=== PATIENT | male | born 1945 | race Caucasian/White ===

== ENCOUNTER → 2020-02-08 16:18 | Outpatient (BNVA) | payer MEDICARE, MEDICAID, SELFPAY | PROVIDERS: PCP Nurse Practitioner Family; Visit Provider Nurse Practitioner Family | DX: I10 Essential (primary) hypertension (principal); E11.65 Type 2 diabetes mellitus with hyperglycemia; J44.1 Chronic obstructive pulmonary disease with (acute) exacerbation | CPT/HCPCS: 80053; 80061; 83036; 85025 ==

== ENCOUNTER → 2020-02-23 13:35 | Outpatient (BNVA) | payer MEDICARE, MEDICAID, SELFPAY | PROVIDERS: PCP Nurse Practitioner Family; Visit Provider Nurse Practitioner Family | DX: D72.829 Elevated white blood cell count, unspecified (principal) | CPT/HCPCS: 85025 ==

== ENCOUNTER → 2020-10-03 17:08 | Outpatient (BNVA) | payer MEDICARE, MEDICAID, SELFPAY | PROVIDERS: PCP Nurse Practitioner Family; Visit Provider Nurse Practitioner Family | DX: I10 Essential (primary) hypertension (principal); E11.65 Type 2 diabetes mellitus with hyperglycemia; Z12.5 Encounter for screening for malignant neoplasm of prostate | CPT/HCPCS: 80053; 80061; 83036; 85025; G0103 ==

== ENCOUNTER → 2020-10-18 10:02 | Outpatient (BNVA) | payer MEDICARE, MEDICAID, SELFPAY | PROVIDERS: PCP Nurse Practitioner Family; Visit Provider Nurse Practitioner Family | DX: I10 Essential (primary) hypertension (principal); E11.65 Type 2 diabetes mellitus with hyperglycemia; J44.9 Chronic obstructive pulmonary disease, unspecified; Z68.29 Body mass index [BMI] 29.0-29.9, adult; F17.211 Nicotine dependence, cigarettes, in remission; Z71.89 Other specified counseling | CPT/HCPCS: 80048 ==

== ENCOUNTER → 2021-04-13 10:07 | Outpatient (BNVA) | payer MEDICARE, MEDICAID, SELFPAY | PROVIDERS: PCP Nurse Practitioner Family; Visit Provider Nurse Practitioner Family | DX: J44.9 Chronic obstructive pulmonary disease, unspecified (principal); I10 Essential (primary) hypertension; E11.65 Type 2 diabetes mellitus with hyperglycemia | CPT/HCPCS: 80053; 80061; 82043; 83036; 84443; 85025 ==

== ENCOUNTER → 2021-12-10 15:45 | Outpatient (BNVA) | payer MEDICARE, MEDICAID, SELFPAY | PROVIDERS: PCP Nurse Practitioner Family; Visit Provider Internal Medicine Cardiovascular Disease | DX: I10 Essential (primary) hypertension (principal); R06.00 Dyspnea, unspecified | CPT/HCPCS: 80048; 83735; 83880 ==

== ENCOUNTER → 2022-01-09 14:38 | Outpatient (BNVA) | payer MEDICARE, MEDICAID, SELFPAY | PROVIDERS: PCP Nurse Practitioner Family; Visit Provider Nurse Practitioner Family | DX: J44.9 Chronic obstructive pulmonary disease, unspecified (principal); E11.65 Type 2 diabetes mellitus with hyperglycemia; I10 Essential (primary) hypertension | CPT/HCPCS: 80053; 80061; 83036; 85025 ==

== ENCOUNTER → 2022-01-17 10:49 | Outpatient (BNVA) | payer MEDICARE, MEDICAID, SELFPAY | PROVIDERS: PCP Nurse Practitioner Family; Visit Provider Nurse Practitioner Family | DX: D64.9 Anemia, unspecified (principal) | CPT/HCPCS: 82607; 82728; 82746; 83550; 85025 ==

== ENCOUNTER → 2022-01-21 10:29 | Outpatient (BNVA) | payer MEDICARE, MEDICAID, SELFPAY | PROVIDERS: PCP Nurse Practitioner Family; Visit Provider Nurse Practitioner Family | DX: D64.9 Anemia, unspecified (principal) | CPT/HCPCS: 82272; 85025 ==

== ENCOUNTER → 2022-01-28 09:40 | Outpatient (BNVA) | payer MEDICARE, MEDICAID, SELFPAY | PROVIDERS: PCP Nurse Practitioner Family; Visit Provider Surgery | DX: Z20.822 Contact with and (suspected) exposure to COVID-19 (principal) | CPT/HCPCS: 87635 ==

== ENCOUNTER 2022-01-30 09:08 | Day surgery (SDC) | payer MEDICARE, MEDICAID, SELFPAY ==
[2022-01-28 12:47] VITALS: BMI 30.6
--- NOTE | 2022-01-30 09:32 | ANES.PREANE2 ---
Pre-Anesthetic Assessment Height/Weight: Height 1.85 m Weight 105.233 kg Preop Diagnosis: upper gi symptoms Operation Date: 01/30/22 10:30 Proposed Procedures p EGD 30152/col 74763/iron deficiency anemia D50.9(Not Applicable) - Saeed Edwards MD s [id number]/col 60310/iron deficiency anemia D50.9(Not Applicable) - Saeed Edwards MD Familial anesthetic complications: None Was Beta Alok taken within 24 hours: Yes Was Clonidine taken within 24 hours: N/A Social No alcohol and No tobacco (h/o smoking) Exam alert, oriented x 3 and regular rate & rhythm Airway Submandibular: within normal limits Cervical ROM: within normal limits Mallampati: Class II Dentition: false Pulmonary Chronic Obstructive Pulmonary Disease CV/HEM Anemia and Hypertension Metabolic Diabetes Mellitus Anesthetic Plan ASA status: 3 Anesthesia: MAC Medications/Allergies Home Medications Medication Instructions Recorded Confirmed Last Taken Type aspirin 81 mg tablet,delayed 81 mg PO DAILY 01/25/20 01/28/22 Unknown History release (Adult Low Dose Aspirin) amlodipine 10 mg tablet 10 mg .ROUTE DAILY #90 tab 05/28/21 01/28/22 Unknown Rx carvedilol 12.5 mg tablet See Rx Instructions .ROUTE 05/28/21 01/28/22 Unknown Rx .COMPLEX #135 tab losartan 100 mg tablet 100 mg PO DAILY #90 tab 09/10/21 01/28/22 Unknown Rx hydrochlorothiazide 12.5 mg tablet 12.5 mg PO .As directed #180 tab 12/12/21 01/28/22 Unknown Rx blood sugar diagnostic (OneTouch #100 ea 01/09/22 01/21/22 Unknown Rx Verio test strips) fluticasone propionate 50 2 spray INTRANASAL DAILY #16 g 01/09/22 01/28/22 Unknown Rx mcg/actuation nasal spray,suspension (Flonase Allergy Relief) lancets 33 gauge (OneTouch Delica #100 each 01/09/22 01/21/22 Unknown Rx Lancets) metformin 500 mg tablet See Rx Instructions .ROUTE 01/09/22 01/28/22 Unknown Rx .COMPLEX 90 Days #180 tab umeclidinium 62.5 mcg/actuation 1 inh INHALATION DAILY #30 ea 01/09/22 01/28/22 Unknown Rx blister powder for inhalation (Incruse Ellipta) dapagliflozin 10 mg tablet 10 mg PO QAM #90 tab 01/11/22 01/28/22 Unknown Rx (Farxiga) ferrous sulfate 325 mg (65 mg 325 mg PO TID #90 tab 01/17/22 01/28/22 Unknown Rx iron) tablet (Feosol) albuterol sulfate 90 mcg/actuation 2 puff INHALATION Q6H PRN 01/28/22 01/28/22 Unknown History aerosol inhaler Allergies Allergy/AdvReac Type Severity Reaction Status Date / Time Penicillins Allergy Unknown Verified 01/28/22 12:40 Sulfa (Sulfonamide Allergy Unknown Verified 01/28/22 12:40 Antibiotics) [facility] Anesthesia Medical History COPD (chronic obstructive pulmonary disease) Diabetes Hypertension Surgical History History of cholecystectomy Status post right inguinal hernia repair Family History Other CAD (coronary artery disease) Denies family history of Anesthesia complication Bleeding disorder Social History Smoking and tobacco status: former smoker Quit status (tobacco): has quit using tobacco Year quit tobacco: 2-3 years ago Second hand smoke exposure: No Alcohol intake: never Lives independently: Yes Household members: none Housing: House Marital status: Current occupational status: retired History of recent travel: No Current gender identity: Male Data Anesthesia Cardiac Studies: No Data to Display
[2022-01-30 09:48] VITALS: BP 149/71; PULSE 58; RESP 18; TEMP 36.3; O2SAT 98
[2022-01-30] MEDS: sodium chloride 0.9% 1,000 ML 30 ML IV (09:56)
--- NOTE | 2022-01-30 10:40 | W.PM.OPSFHP ---
Same Day Surgery H&P Indication for Procedure/HPI DATE OF PROCEDURE: January 30, 2022 CHIEF COMPLAINT/INDICATIONFOR SURGICAL PROCEDURE: anemia for panendoscopy PREOP DIAGNOSIS: upper gi symptoms PLANNED PROCEDURE: Operation Date: 01/30/22 10:30 Proposed Procedures p EGD 45419/col 64706/iron deficiency anemia D50.9(Not Applicable) - Saeed Edwards MD s [id number]/col 00538/iron deficiency anemia D50.9(Not Applicable) - Saeed Edwards MD Medications/Allergies* Home Medications Medication Instructions Recorded Confirmed Type aspirin 81 mg tablet,delayed 81 mg PO DAILY 01/25/20 01/30/22 History release (Adult Low Dose Aspirin) albuterol sulfate 90 mcg/actuation 2 puff INHALATION Q6H PRN 01/28/22 01/30/22 History aerosol inhaler Allergies/Adverse Reactions Allergy/AdvReac Type Severity Reaction Status Date / Time Penicillins Allergy Unknown Verified 01/28/22 12:40 Sulfa (Sulfonamide Allergy Unknown Verified 01/28/22 12:40 Antibiotics) Current Medications: Generic Name Dose Route Start Last Admin Trade Name Freq PRN Reason Stop Dose Admin Sodium Chloride 1,000 mls @ 30 mls/hr 01/30/22 09:30 01/30/22 09:56 Sodium Chloride 0.9% IV 01/31/22 09:29 30 mls/hr .Q24H MEGHA Administration Pertinent History/Comorbid Conditions* Medical History (Updated 10/19/20 @ 08:41 by SHAINA Vela) COPD (chronic obstructive pulmonary disease) Diabetes Hypertension Surgical History (Updated 01/14/20 @ 14:35 by Saeed Edwards MD) History of cholecystectomy Status post right inguinal hernia repair Family History (Updated 01/14/20 @ 08:35 by Missy Guerin, NORAH) CAD (coronary artery disease) Denies family history of Anesthesia complication Bleeding disorder Social History Smoking and tobacco status: former smoker Quit status (tobacco): has quit using tobacco Year quit tobacco: 2-3 years ago Second hand smoke exposure: No Alcohol intake: never Lives independently: Yes Household members: none Housing: House Marital status: Current occupational status: retired History of recent travel: No Current gender identity: Male Pertinent Exam Findings alert, oriented x 3 and regular rate & rhythm Recommendations Surgery/Procedure today Coding Level of Care Code 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
[2022-01-30 11:07] VITALS: BP 112/56; PULSE 51; RESP 16; TEMP 36.4; O2SAT 94
--- NOTE | 2022-01-30 11:10 | ANE.PACU2 ---
Inpatient post-anesthesia follow up: Airway intact: Yes Vital signs: Temperature 97.5 F Pulse Rate 51 Respiratory Rate 16 Blood Pressure 112/56 Pulse Oximetry 94 Oxygen Delivery Me thod Room Air Oxygen Flow Rate Fraction of Inspir ed Oxygen Hydration adequate: Yes Nausea and vomiting: No Pain level: 1 Mental status: Baseline
[2022-01-30 11:19] VITALS: BP 115/55; PULSE 49; RESP 18; O2SAT 96
[2022-02-07 13:08] LABS: Miscellaneous Test See Scanned Lab Rpt
== END 2022-01-30 11:37 | disposition home or self-care (01) ==
PROVIDERS: PCP Nurse Practitioner Family; Visit Provider Surgery
PROC: 0DJ08ZZ Inspection of Upper Intestinal Tract, Via Natural or Artificial Opening Endoscopic (ICD-10-PCS; CPT 43235; principal; 2022-01-30 10:30)
PROC: 0DJD8ZZ Inspection of Lower Intestinal Tract, Via Natural or Artificial Opening Endoscopic (ICD-10-PCS; CPT 45378; 2022-01-30 10:30)
DX: D50.9 Iron deficiency anemia, unspecified (principal); D12.2 Benign neoplasm of ascending colon; D12.4 Benign neoplasm of descending colon; D12.3 Benign neoplasm of transverse colon; K57.30 Diverticulosis of large intestine without perforation or abscess without bleeding; K44.9 Diaphragmatic hernia without obstruction or gangrene; K25.9 Gastric ulcer, unspecified as acute or chronic, without hemorrhage or perforation; J44.9 Chronic obstructive pulmonary disease, unspecified; I10 Essential (primary) hypertension; E11.9 Type 2 diabetes mellitus without complications; Z79.82 Long term (current) use of aspirin; Z79.84 Long term (current) use of oral hypoglycemic drugs; Z87.891 Personal history of nicotine dependence
CPT/HCPCS: 43239; 45380; 45381; 88305; 88341; 88342; J2704; J7030

== ENCOUNTER 2022-02-01 07:24 | Outpatient (CLI) | payer MEDICARE, MEDICAID, SELFPAY ==
--- NOTE | 2022-02-01 09:00 | CT_ITS ---
WS: [id number] CT ABDOMEN AND PELVIS WITH CONTRAST HISTORY: K63.89 - Other specified diseases of intestine, abnormal hemoglobin. TECHNIQUE: Imaging performed of the abdomen and pelvis with IV contrast. Single phase imaging of the abdomen. Coronal and sagittal reformats are submitted. All CT scans at [facility] use at [address] one of these dose optimization techniques: automated exposure control; mA and/or kV adjustment per patient size (includes targeted exams where dose is matched to clinical indication); or iterative re construction. IV CONTRAST: Visipaque 320; 95 mL IV. Oral contrast: Yes. DLP: 1241.02 mGy.cm COMPARISON: None available. Lower thorax: Lung bases are clear. Heart is normal size. Small hiatal hernia. Liver/biliary system: Normal size liver. Mild hepatic steatosis along the falciform ligament. 4mm low -attenuation nodule in the LEFT lobe of the liver is too small to characterize but has characteristic s most likely due to a cyst. There are a few granulomata. Normal portal vein. Gallbladder: Status post cholecystectomy. Pancreas: Normal size pancreas and pancreatic duct. No adjacent inflammation. Spleen: Normal size spleen with granulomata. Adrenal glands: Mild thickening of the RIGHT adrenal gland. No mass. Normal LEFT adrenal. Right kidney: Normal. Left kidney: Focal cortical scarring at several locations in the LEFT kidney. There are additional hy poechoic scattered nodules within the cortex. Largest measures 10 mm. Aorta: Mild atherosclerosis with no aneurysm. Mesenteric arteries are patent. Lymphadenopathy: Several small round mildly vascular lymph nodes are noted in the RIGHT lower quadran t measuring 7 mm. 7 mm aortocaval lymph node. Free fluid: None. GI tract: Nondistended stomach. Normal small bowel with no obstruction. Mild diffuse fecal retention throughout the colon. There is asymmetric wall thickening measuring 1.6 cm involving the ascending co karl. Circumferential narrowing of the colon extends over length of 3.5 cm highly suspicious for carci noma. There are adjacent small but vascular lymph nodes and mild pericolonic stranding in the soft ti ssues. No obstruction at this time. 7 mm low-attenuation nodule consistent with fat in the submucosa of the RIGHT rectum. The appendix is normal. Abdominal wall: Unremarkable abdominal wall. No hernia. Pelvis: No free fluid. Very small subcentimeter inguinal chain lymph nodes. Inguinal canals are paten t bilaterally containing fat only. Prostate gland is mildly enlarged encroaching into the bladder. Th ere is mild diffuse bladder wall thickening. Bones: Mild retrolisthesis of L3 and L4. No osteoblastic or osteolytic bone disease. CT/CT abdomen pelvis w con* [id number] IMPRESSION: 1. Asymmetric circumferential mass in the ascending colon extends over a lengt h of 3.5 cm suspicious for neoplasm. 2. There are a few round, mildly vascular lymph nodes in the RIGHT lower quadr ant adjacent to the ascending colon mass. 3. Indeterminate 4 millimeter low-attenuation lesion in the LEFT lobe of the l iver. Early metastatic site versus cyst. 4. Prior cholecystectomy. 5. Atherosclerosis aorta. 6. Prostate gland enlargement.
[2022-02-01] MEDS: iodixanol 320 mg/mL 100mL Btl IV (09:11)
[2022-02-01] MEDS: iohexol 300 mg/mL 50 mL Btl PO (09:12)
== END 2022-02-01 07:25 | disposition home or self-care (01) ==
PROVIDERS: PCP Nurse Practitioner Family; Visit Provider Surgery
DX: K63.89 Other specified diseases of intestine (principal); N40.0 Benign prostatic hyperplasia without lower urinary tract symptoms; I70.0 Atherosclerosis of aorta; Z90.49 Acquired absence of other specified parts of digestive tract; K76.9 Liver disease, unspecified; R19.09 Other intra-abdominal and pelvic swelling, mass and lump
CPT/HCPCS: 74177; 87635

== ENCOUNTER 2022-02-04 05:24 | Outpatient (CLI) | payer MEDICARE, MEDICAID, SELFPAY ==
[2022-02-04 06:18] VITALS: BMI 30.9
--- NOTE | 2022-02-04 06:24 | ECG_ITS ---
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 Interpretive Statements NAME OF STUDY: LEXISCAN SESTAMIBI STRESS TEST INDICATION: Shortness of Breath PROCEDURE: At the baseline, the blood pressure was 152/82 mmHg, oxygen saturation 98% with a heart rate of 54 bpm. The electrocardiogram showed normal sinus rhythm, left axis deviation. Possible old anterior infarct. The Lexiscan was infused over a period of 20 seconds. A total of 0.4 milligrams of Lexiscan was infused. The stress phase was continued for a total of 5 minutes. Heart rate at the end of the stress phase was 62 bpm, oxygen saturation 98% with a blood pressure of 133/65 mmHg. The EKG at the peak infusion revealed sinus rhythm with no significant ST-T wave changes. Isolated PACs and PVCs were noted during Lexiscan infusion. The study was terminated due to exertional fatigue. Sestamibi was injected 20 seconds after the Lexiscan infusion. Blood pressure at the end of the recovery phase was 139/63 mmHg, oxygen saturation 97% with a heart rate of 60 beats per minute. CONCLUSION: 1. No significant EKG changes with the LexiScan infusion. 2. No LexiScan induced chest pain or cardiac arrhythmia. 3. Normal blood pressure and heart rate response. 4. Sestamibi/sestamibi perfusion scan pending; see separate report. Electronically Signed On 02-04-2022 9:42:28 AUTOMATION DRIVER by Lenora Moreira M.D. [id number]
--- NOTE | 2022-02-04 06:25 | NMCV_ITS ---
NM jones perf SPECT r/s* [id number] JeanWilfredo Age: 76 Gender: M : 1945 Exam Date: 02/04/2022 06:25 Ordering Phys: Lenora Moreira MD ([email or web address]) Technologist: DEWEY Westfall Exam Location: [facility] Indications: PREOP CLEARANCE, EXERTIONAL DYSPNEA STRESS TEST Please see separate stress test report in [employer] for full findings IMAGE PROTOCOL Rest/Stress 1 Lexiscan Day Radiopharmaceutical Dose (mCi) Administration Site Administered by Rest: Tc-99m 10.8 IV DEWEY Brennan Sestamibi Stress:Tc-99m 32.8 IV DEWEY Brennan Sestamibi Rest: 04-Feb-2022 60 Discovery 630 Stress: 04-Feb-2022 30 Discovery 630 0.4mg Lexiscan. Images obtained in supine and prone position. SPECT RESULTS Technical Quality: Excellent Raw Data Analysis: Normal Image Corrections: No attenuation or motion correction applied Summed Stress Score: 7 Summed Rest Score: 9 Summed Difference Score: 0 PERFUSION FINDINGS Small size perfusion abnormality of mild severity of lateral wall on rest images with improved tracer uptake on stress images. This is suggestive of attenuation artifact. FUNCTIONAL RESULTS (calculated via Gated SPECT) Stress Image LV EF (%): 57 Stress EDV (mL):126 TID: 1.09 Stress ESV (mL):54 FUNCTIONAL FINDINGS: The left ventricle is normal in size. Transient Ischemia Dilatation of 1.1. There is normal left ventricular systolic function. The left ventricular ejection fraction is normal with a value of 57%. There is normal left ventricular wall thickening with no regional wall motion abnormality. Normal end-diastolic end-systolic volumes. IMPRESSIONS 1. Myocardial perfusion imaging is normal. Attenuation artifact noted in lateral wall. 2. Overall left ventricular systolic function is normal without regional wall motion abnormalities, LVEF=57%. 3. No significant EKG changes with Lexiscan infusion. Please refer to separate report for details. 4. Scan indicates low risk for cardiac events. Lenora Moreira MD (Electronically Signed) Final Date: 04 February 2022 10:59 S
[2022-02-04] MEDS: regadenoson 0.4 Mg/5 ml Syringe IVP (08:06)
[2022-02-04 08:18] VITALS: BP 139/63; PULSE 62
== END 2022-02-04 05:25 | disposition home or self-care (01) ==
LOC: RAD 05:25 → CDL 05:25
PROVIDERS: PCP Nurse Practitioner Family; Visit Provider Internal Medicine Cardiovascular Disease
DX: R06.09 Other forms of dyspnea (principal); R06.02 Shortness of breath
CPT/HCPCS: 78452; 93017; A9500; J2785

== ENCOUNTER 2022-02-05 15:48 | Inpatient (IN) | payer MEDICARE, MEDICAID, SELFPAY ==
[2022-02-01 15:42] VITALS: BMI 30.9
[2022-02-05] VITALS (13 sets, daily range): BP systolic 111–145; BP diastolic 53–80; PULSE 52–63; RESP 16–20; TEMP 36.2–37.1; O2SAT 91–100; BMI 30.9
[2022-02-05] MEDS: sodium chloride 0.9% 1,000 ML 30 ML IV (10:49)
[2022-02-05 11:03] LABS: Glucose Point of Care 150 mg/dL (70-110)
--- NOTE | 2022-02-05 11:35 | P.ANESASSM_ITS ---
Pre-Anesthetic Assessment Height/Weight: Height 1.85 m Weight 106.594 kg Temp Pulse Resp BP Pulse Ox 98.8 F 59 L 16 145/80 97 02/05/22 10:22 02/05/22 10:22 02/05/22 10:22 02/05/22 10:22 02/05/22 10:22 Preop Diagnosis: Ascending colon cancer Operation Date: 02/05/22 11:50 Proposed Procedures p Laparoscopic Right Hemicolectomy 49784/c18.2(Not Applicable) - Saeed Edwards MD Familial anesthetic complications: None Was Beta Alok taken within 24 hours: Yes Was Clonidine taken within 24 hours: N/A Last intake: Intake Last Liquid Date 02/04/22 Last Liquid Time 20:00 Last Solid Date 02/02/22 Last Solid Time 18:00 Social No alcohol and No tobacco (h/o smoking) Exam alert, oriented x 3 and regular rate & rhythm Airway Submandibular: within normal limits Cervical ROM: within normal limits Mallampati: Class II Dentition: false Pulmonary Chronic Obstructive Pulmonary Disease CV/HEM Anemia and Hypertension CONCLUSION: 1. No significant EKG changes with the LexiScan infusion. 2. No LexiScan induced chest pain or cardiac arrhythmia. 3. Normal blood pressure and heart rate response. 4. Sestamibi/sestamibi perfusion scan pending; see separate report. Metabolic Diabetes Mellitus Medications/Allergies Home Medications Medication Instructions Recorded Confirmed Last Taken Type aspirin 81 mg tablet,delayed 81 mg PO DAILY 01/25/20 02/05/22 01/28/22 History release (Adult Low Dose Aspirin) amlodipine 10 mg tablet 10 mg .ROUTE DAILY #90 tab 05/28/21 02/05/22 02/04/22 Rx carvedilol 12.5 mg tablet See Rx Instructions .ROUTE 05/28/21 02/05/22 02/05/22 Rx .COMPLEX #135 tab 0 losartan 100 mg tablet 100 mg PO DAILY #90 tab 09/10/21 02/05/22 02/04/22 Rx hydrochlorothiazide 12.5 mg tablet 12.5 mg PO .As directed #180 tab 12/12/21 02/05/22 02/05/22 Rx 12.5 mg blood sugar diagnostic (OneTouch #100 ea 01/09/22 02/01/22 Unknown Rx Verio test strips) fluticasone propionate 50 2 spray INTRANASAL DAILY #16 g 01/09/22 02/05/22 Unknown Rx mcg/actuation nasal spray,suspension (Flonase Allergy Relief) lancets 33 gauge (OneTouch Delica #100 each 01/09/22 02/01/22 Unknown Rx Lancets) metformin 500 mg tablet See Rx Instructions .ROUTE 01/09/22 02/05/22 01/29/22 07:00 Rx .COMPLEX 90 Days #180 tab umeclidinium 62.5 mcg/actuation 1 inh INHALATION DAILY #30 ea 01/09/22 02/05/22 02/04/22 Rx blister powder for inhalation 1100 (Incruse Ellipta) dapagliflozin 10 mg tablet 10 mg PO QAM #90 tab 01/11/22 02/05/22 1 Week Ago Rx (Farxiga) ~01/29/22 ferrous sulfate 325 mg (65 mg 325 mg PO TID #90 tab 01/17/22 02/05/22 02/05/22 R x iron) tablet (Feosol) 325 mg albuterol sulfate 90 mcg/actuation 2 puff INHALATION Q6H PRN 01/28/22 02/05/22 02/05/22 History aerosol inhaler erythromycin 500 mg tablet 500 mg PO ONCE #3 tab 02/01/22 02/05/22 02/04/22 Rx neomycin 500 mg tablet 1 g PO ONCE 1 Days #6 tab 02/01/22 02/05/22 02/04/22 Rx Allergies Allergy/AdvReac Type Severity Reaction Status Date / Time Penicillins Allergy Unknown Verified 02/05/22 10:32 Sulfa (Sulfonamide Allergy Unknown Verified 02/05/22 10:32 Antibiotics) Current Medications Generic Name Dose Route Start Last Admin Trade Name Freq PRN Reason Stop Dose Admin Sodium Chloride 1,000 mls @ 30 mls/hr 02/05/22 10:15 02/05/22 10:49 Sodium Chloride 0.9% IV 02/06/22 10:14 30 mls/hr .Q24H MEGHA Administration PFSH Anesthesia Medical History Cancer of ascending colon COPD (chronic obstructive pulmonary disease) Diabetes Hypertension Surgical History H/O esophagogastroduodenoscopy (01/30/22) gastritis and esophagitis History of cholecystectomy Status post colonoscopy with polypectomy (01/30/22) ascending colon mass, transverse colon polyps, diverticulosis Status post right inguinal hernia repair Family History Other CAD (coronary artery disease) Denies family history of Anesthesia complication Bleeding disorder Social History Smoking and tobacco status: former smoker Quit status (tobacco): has quit using tobacco Year quit tobacco: 2-3 years ago Second hand smoke exposure: No Alcohol intake: never Lives independently: Yes Household members: none Housing: House Marital status: Current occupational status: retired History of recent travel: No Current gender identity: Male Data Anesthesia Cardiac Studies: Sestamibi Stress Test (Cardiology) 02/04/22
--- NOTE | 2022-02-05 11:54 | W.PM.OPSFHP ---
Same Day Surgery H&P Indication for Procedure/HPI DATE OF PROCEDURE: February 05, 2022 CHIEF COMPLAINT/INDICATIONFOR SURGICAL PROCEDURE: right hemicolectomy PREOP DIAGNOSIS: Ascending colon cancer PLANNED PROCEDURE: Operation Date: 02/05/22 11:50 Proposed Procedures p Laparoscopic Right Hemicolectomy 45892/c18.2(Not Applicable) - Saeed Edwards MD Medications/Allergies* Home Medications Medication Instructions Recorded Confirmed Type aspirin 81 mg tablet,delayed 81 mg PO DAILY 01/25/20 02/05/22 History release (Adult Low Dose Aspirin) albuterol sulfate 90 mcg/actuation 2 puff INHALATION Q6H PRN 01/28/22 02/05/22 History aerosol inhaler Allergies/Adverse Reactions Allergy/AdvReac Type Severity Reaction Status Date / Time Penicillins Allergy Unknown Verified 02/05/22 10:32 Sulfa (Sulfonamide Allergy Unknown Verified 02/05/22 10:32 Antibiotics) Current Medications: Generic Name Dose Route Start Last Admin Trade Name Freq PRN Reason Stop Dose Admin Sodium Chloride 1,000 mls @ 30 mls/hr 02/05/22 10:15 02/05/22 10:49 Sodium Chloride 0.9% IV 02/06/22 10:14 30 mls/hr .Q24H MEGHA Administration Pertinent History/Comorbid Conditions* Medical History (Updated 02/01/22 @ 10:16 by Saeed Edwards MD) Cancer of ascending colon COPD (chronic obstructive pulmonary disease) Diabetes Hypertension Surgical History (Updated 01/30/22 @ 11:07 by Saeed Edwards MD) H/O esophagogastroduodenoscopy (01/30/22) gastritis and esophagitis History of cholecystectomy Status post colonoscopy with polypectomy (01/30/22) ascending colon mass, transverse colon polyps, diverticulosis Status post right inguinal hernia repair Family History (Updated 01/14/20 @ 08:35 by Missy Guerin RN) CAD (coronary artery disease) Denies family history of Anesthesia complication Bleeding disorder Social History Smoking and tobacco status: former smoker Quit status (tobacco): has quit using tobacco Year quit tobacco: 2-3 years ago Second hand smoke exposure: No Alcohol intake: never Lives independently: Yes Household members: none Housing: House Marital status: Current occupational status: retired History of recent travel: No Current gender identity: Male Pertinent Exam Findings alert, oriented x 3 and regular rate & rhythm Recommendations Surgery/Procedure today Coding Level of Care Code 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
[2022-02-05 12:05] LABS: Carcinoembryonic Antigen 5.1 ng/mL (0.0-4.7)
[2022-02-05] MEDS: levofloxacin-dextrose 5 % 500 MG/100 ML PREMIX 100 MG IV (12:12)
[2022-02-05] MEDS: metroNIDAZOLE IV 500 MG/100 ML PREMIX 100 MG IV ×2 (12:21→17:56)
--- NOTE | 2022-02-05 15:06 | PM.OP ---
Operative Report Date of procedure: February 05, 2022 Pre-op diagnosis: Ascending colon adenocarcinoma Post-op diagnosis: Ascending colon adenocarcinoma No evidence of peritoneal carcinomatosis No evidence of liver metastasis Procedure done: 1. Laparoscopic right hemicolectomy with ileocolic stapled anastomosis Specimens removed/disposition: Cecum, ileum, ascending colon, proximal transverse colon Surgeon: Saeed Edwards Anesthesia: General Estimated blood loss (mL): 200 IV fluids (mL): 2,000 Urine output (mL): 50 Condition: stable Disposition: PACU Procedure: The patient was taken to the operating room and placed in supine position under general anesthesia after IV antibiotic had been administered. A Real catheter was placed and the abdomen was prepped and draped in a sterile manner. A 2 cm midline supraumbilical incision was made and using open Sexton technique the peritoneal cavity was entered and an 11 mm port was placed and 15 mm of pneumoperitoneum was created. 10 mm 30? scope was introduced. 5 mm port was placed in the left lower quadrant, left upper quadrant and in the suprapubic area under direct visualization. There was no evidence of peritoneal carcinomatosis or liver lesions. The previously inked area was noted in the ascending colon and therefore decision was made for right hemicolectomy. The patient was placed in Trendelenburg position and steep tilt to the left placing the small bowel in the left side within the peritoneal cavity and the transverse colon was retracted superiorly. The cecum was retracted laterally and the tenting of the ileocolic pedicle was noted. The peritoneum overlying the pedicle was opened and a window created posterior to the pedicle just lateral to the third portion of the duodenum. Dissection was carried superiorly and lateral to the duodenum along the avascular plane. Using LigaSure the ileocolic pedicle was divided. After the ileocolic pedicle was divided there was bleeding from the divided pedicle which was controlled with 10 mm clips and electrocautery. The avascular plane was dissected laterally towards the right paracolic gutter and superiorly towards the hepatic flexure.The transverse mesocolon was divided using LigaSure and this was continued medially. The mid colic vessels were skeletonized and right branch of the mid colic artery divided with LigaSure. The anterior leaflet of the greater omentum was divided near the midpoint of the transverse colon to enter the lesser sac. The greater omentum was divided using LigaSure and the hepatic flexure was taken down. The dissection was carried along the line of Toldt until the ascending colon and down to ileum to completely free it up. The mesentery of the terminal ileum was divided using LigaSure. 20 cc of saline mixed with 20 cc of 0.5% Marcaine mixed with 20 cc of Exparel was injected in the midclavicular line under laparoscopic visualization for a TAP block. At this point the pneumoperitoneum was released and the mobilized colon and small bowel was exteriorized through the supraumbilical incision which had been extended and a wound protector had been placed. Interrupted 4-0 Vicryl suture was placed to approximate the ileum to the transverse colon and enterotomies were created on the transverse colon and small bowel and and 75 mm blue load FAZAL stapler was introduced and fired creating a [id number] stapled anastomosis. There was no bleeding noted from the staple line and enterotomies were grasped with Allis clamps and another load of 75 mm blue load FAZAL stapler x 2 was fired to resect the specimen distal to the enterotomies. 4-0 Vicryl Lembert sutures were placed on the edges and the intersection of the staple line. The bowel was reintroduced into the peritoneal cavity and the staple line was covered with omentum. All ports were removed under direct visualization and there was no bleeding noted from the port sites. The fascia at the midline incision was closed using running #1 loop PDS. The wound was irrigated with saline, and subcutaneous tissue approximated using 3-0 Vicryl suture and skin at all 4 port sites were closed with 4-0 Monocryl and Dermabond. The patient was transferred to the recovery room in stable condition with a Real catheter
[2022-02-05] MEDS: sodium chlor 0.45% +KCl 20 mEq 20 MEQ/1,000 ML BAG 125 MEQ IV (16:43)
[2022-02-05 17:04] LABS: Glucose Point of Care 161 mg/dL (70-110)
--- NOTE | 2022-02-05 17:09 | ANE.PACU2 ---
Inpatient post-anesthesia follow up: Airway intact: Yes Vital signs: Temperature 97.1 F Pulse Rate 52 Respiratory Rate 16 Blood Pressure 117/60 Pulse Oximetry 96 Oxygen Delivery Me thod Nasal Cannula Oxygen Flow Rate 3 Fraction of Inspir ed Oxygen Hydration adequate: Yes Nausea and vomiting: No Pain level: 3 Mental status: Baseline
[2022-02-05 17:49] LABS: Basophils % 0.4 %; Eosinophils % 0.2 %; Hematocrit 38.7 % (42.0-52.0); Hemoglobin 11.3 g/dL (11.7-16.6); Lymphocytes # 0.6 10^3/uL (0.8-4.8); Lymphocytes % 5.9 %; Mean Corpuscular HGB Conc 29.2 g/dL (30.0-36.0); Mean Corpuscular Hemoglobin 25.2 pg (28.0-34.0); Mean Corpuscular Volume 86.4 fl (80-94); Mean Platelet Volume 9.3 fL (7.4-10.4); Monocytes # 0.3 10^3/uL (0.2-0.9); Monocytes % 2.5 %; Neutrophils # 9.54 10^3/uL (1.8-7.7); Neutrophils % 90.6 %; Nucleated Red Blood Cells % 0 %; Platelet Count 295 10^3/cmm (130-400); Red Blood Count 4.48 10^6/uL (4.1-5.3); White Blood Count 10.5 10^3/uL (4.0-10.0)
[2022-02-05] MEDS: carvedilol 6.25 mg Tablet PEG-TUBE (17:50)
[2022-02-05] MEDS: insulin lispro 100 unit/1 mL SUBCUT (17:50)
[2022-02-05] MEDS: sennosides-docusate Tablet 1 TAB PO (17:50)
[2022-02-05] MEDS: HYDROcodone-acetaminophen 5-325 mg Tablet 1 TAB PO (17:50)
[2022-02-05 18:37] LABS: Anion Gap 18.4 (5-19); Blood Urea Nitrogen 21 mg/dL (8-23); Calcium 8.4 mg/dL (8.5-10.5); Carbon Dioxide 18 mmol/L (22-29); Chloride 101 mmol/L (98-107); Glucose 184 mg/dL (65-115); Osmolality Calculated 284 mOsm/kg (285-295); Potassium 4.4 mmol/L (3.5-5.1); Sodium 133 mmol/L (136-145)
--- NOTE | 2022-02-05 19:05 | PC.NURSE ---
patient belongings were not brought with the patient from PACU. Patient states that he had clothing, a jacket, watch, shoes, wallet, and keys.
[2022-02-05 22:05] LABS: Glucose Point of Care 165 mg/dL (70-110)
[2022-02-06] VITALS (10 sets, daily range): BP systolic 102–164; BP diastolic 53–82; PULSE 52–75; RESP 16–19; TEMP 36.4–37.4; O2SAT 90–98
[2022-02-06] MEDS: sodium chlor 0.45% +KCl 20 mEq 20 MEQ/1,000 ML BAG 125 MEQ IV ×3 (01:23→20:21)
[2022-02-06] MEDS: metroNIDAZOLE IV 500 MG/100 ML PREMIX 100 MG IV (02:45)
[2022-02-06 02:55] LABS: Basophils % 0.1 %; Hematocrit 37.8 % (42.0-52.0); Hemoglobin 11.3 g/dL (11.7-16.6); Lymphocytes # 0.5 10^3/uL (0.8-4.8); Lymphocytes % 4.8 %; Mean Corpuscular HGB Conc 29.9 g/dL (30.0-36.0); Mean Corpuscular Hemoglobin 24.7 pg (28.0-34.0); Mean Corpuscular Volume 82.5 fl (80-94); Mean Platelet Volume 9.5 fL (7.4-10.4); Monocytes # 0.4 10^3/uL (0.2-0.9); Monocytes % 3.8 %; Neutrophils % 90.8 %; Nucleated Red Blood Cells % 0 %; Platelet Count 358 10^3/cmm (130-400); Red Blood Count 4.58 10^6/uL (4.1-5.3); Red Cell Distribution Width 22.1 % (12.1-15.1); White Blood Count 10.2 10^3/uL (4.0-10.0)
[2022-02-06 03:17] LABS: Anion Gap 16.7 (5-19); Blood Urea Nitrogen 18 mg/dL (8-23); Calcium 8.2 mg/dL (8.5-10.5); Carbon Dioxide 21 mmol/L (22-29); Chloride 103 mmol/L (98-107); Glucose 155 mg/dL (65-115); Osmolality Calculated 287 mOsm/kg (285-295); Potassium 4.7 mmol/L (3.5-5.1); Sodium 136 mmol/L (136-145)
--- NOTE | 2022-02-06 05:10 | PC.NURSE ---
SHIFT SUMMARY Has not slept much tonight. Has not taken anything for pain. Every time offered he says he is ok and doesn't like to take medications. IV infusing without difficulty at 125ml/hr rate. Received second dose of IV Flagyl tonight. Has been NPO except few ice chips. Has denied nausea. Will start clear liquid diet this morning. 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 Has had good urine output tonight. Monitored with Real emptied every few hours. Has occ cough and says feels like secretions in his throat.Enc se of IS at bedside
[2022-02-06] MEDS: carvedilol 12.5 mg Tablet PEG-TUBE (05:32)
[2022-02-06 06:32] LABS: Glucose Point of Care 131 mg/dL (70-110)
[2022-02-06] MEDS: HYDROcodone-acetaminophen 5-325 mg Tablet 1 TAB PO ×2 (08:08→17:44)
[2022-02-06] MEDS: hydroCHLOROthiazide 25 mg Tablet 12.5 MG PO (09:20)
[2022-02-06] MEDS: losartan 50 mg Tablet 100 MG PO (09:21)
[2022-02-06] MEDS: aspirin 81 mg EC Tablet PO (09:21)
[2022-02-06] MEDS: amlodipine 10 mg Tablet PO (09:21)
[2022-02-06] MEDS: sennosides-docusate Tablet 1 TAB PO ×2 (09:21→16:53)
--- NOTE | 2022-02-06 10:13 | PC.CHAP ---
Pastoral Care Encounter/Spiritual Assessment Type of Contact [] Declined cad designer visit [] Patient/Family/Request visit [] Outpatient visit [] Follow-up visit [] Physician referral [] Code/Alert [x] Routine visit [] Staff referral [] Actively dying [] Patient sleeping [] Family support [] [] Out of room [] Palliative care [] [] Receiving care in room [] Pre-surgical visit [] Trauma [] Long length of stay [] ICU visit [] Other: Relational/Emotional Strength [x] Patient feels connected with others/family/visitors/staff [] Distress [] Loneliness/isolation [] Abandonment Spirituality of Patient [x] Person of Usha [x] Attends Congregational of their Usha [x] Believes in Prayer [] Reads Bible or Sabianism materials [] There are Spiritual issues to be addressed 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 Interventions [x] Prayer [] Active listening [] Non-anxious presence [] Spiritual/emotional support [] Crisis/trauma care [] Spiritual counseling [] Bereavement support [] Provided bereavement packet [] Provided Bible/devotional materials [] Provided toy/stuffed animal, coloring book to patient or family member [] Provided Communion [] Anointing/[place] [] Salvation [] Completed spiritual assessment [] Other: Impact on Illness or Injury [] Angry [] Fearful [] Anxious [] Often cries [] Exhaustion [] Unable to work [] Unable to attend mormon [] Unable to walk/stand [] Unable to read [] Unable to drive [] Unable to eat/drink [] Unable to sleep [] Unable to be with family [] Patient intubated [] Other: Summary Time spent with patient 10 min
[2022-02-06] MEDS: levofloxacin-dextrose 5 % 750 MG/150 ML PREMIX 100 MG IV (10:52)
[2022-02-06 11:45] LABS: Glucose Point of Care 218 mg/dL (70-110)
[2022-02-06 11:45] LABS: Glucose Point of Care 219 mg/dL (70-110)
[2022-02-06] MEDS: insulin lispro 100 unit/1 mL SUBCUT (12:18)
--- NOTE | 2022-02-06 12:37 | PM.PN ---
Subjective Subjective: Patient denies any abdominal pain, nausea, vomiting, flatus or BM, tolerating clears. He had poor urine output during surgery but had 1100 cc of urine output last night Medications: Reviewed: Yes Vitals/I&O/Wt Last Vital Signs Temp 97.8 F 02/06/22 11:53 Pulse 64 02/06/22 11:53 Resp 18 02/06/22 11:53 BP 129/60 02/06/22 11:53 Pulse Ox 93 02/06/22 11:53 02/05/22 02/06/22 02/06/22 22:59 06:59 14:59 Intake Total 2525 / 3875 1150 / 3875 1165 / 1165 Output Total 850 / 1800 950 / 1800 Balance 1675 / 2075 200 / 2075 1165 / 1165 Weight last 48 hrs Weight 235 lb Physical Exam Narrative: Abdomen: Soft, mildly distended, tender, incision clean dry and intact, Real to gravity Urinary Catheter Management: Coude: Cath Placed During This Visit: yes Urinary Catheter Date of Insertion: 02/05/22 Urinary Catheter Time of Insertion: 12:15 Data : 02/06/22 02:28 02/06/22 12:14 A&P Assessment and plan (1) S/P right hemicolectomy: 76-year-old male status post right hemicolectomy for ascending colon adenocarcinoma with postop ileus Acute renal failure with creatinine at 2.1, repeat creatinine is 1.9 most likely prerenal secondary to dehydration Continue IV fluids at 125 cc/h Heparin 5000 every 8 for DVT prophylaxis Pepcid for GI prophylaxis Start clear liquid diet Insulin sliding scale Resume home medications except HCTZ and losartan Leave Real in for 24 more hours for accurate monitoring of urine output Ambulate with physical therapy Incentive spirometry, wean O2 to room air Patient will need greater than 2 nights of inpatient stay to ensure resolution of ileus and rule out postop complications Status: Acute Attestations Medical Necessity Statement*: Status post right hemicolectomy with postop ileus requiring continued inpatient stay Coding Level of Care 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
[2022-02-06 12:50] LABS: Anion Gap 16.5 (5-19); Blood Urea Nitrogen 20 mg/dL (8-23); Calcium 8.8 mg/dL (8.5-10.5); Carbon Dioxide 20 mmol/L (22-29); Chloride 100 mmol/L (98-107); Glucose 233 mg/dL (65-115); Osmolality Calculated 284 mOsm/kg (285-295); Potassium 4.5 mmol/L (3.5-5.1); Sodium 132 mmol/L (136-145)
[2022-02-06] MEDS: heparin 5,000 unit/mL INJ 1 mL 5000 UNIT SUBCUT ×2 (13:24→22:23)
[2022-02-06 17:25] LABS: Glucose Point of Care 131 mg/dL (70-110)
[2022-02-06 20:59] LABS: Glucose Point of Care 174 mg/dL (70-110)
[2022-02-07] VITALS (7 sets, daily range): BP systolic 125–170; BP diastolic 60–82; PULSE 69–89; RESP 13–20; TEMP 36.5–37.2; O2SAT 90–96
[2022-02-07] MEDS: sodium chlor 0.45% +KCl 20 mEq 20 MEQ/1,000 ML BAG 125 MEQ IV ×3 (03:38→20:52)
[2022-02-07] MEDS: ondansetron 2 mg/ML SDV 2 mL 4 MG IVP ×2 (03:38→08:35)
[2022-02-07 05:58] LABS: Basophils % 0.3 %; Eosinophils % 0.2 %; Hematocrit 35.2 % (42.0-52.0); Hemoglobin 11.2 g/dL (11.7-16.6); Lymphocytes # 0.8 10^3/uL (0.8-4.8); Lymphocytes % 6.9 %; Mean Corpuscular HGB Conc 31.8 g/dL (30.0-36.0); Mean Corpuscular Hemoglobin 27.3 pg (28.0-34.0); Mean Corpuscular Volume 85.6 fl (80-94); Mean Platelet Volume 9.4 fL (7.4-10.4); Monocytes # 0.7 10^3/uL (0.2-0.9); Monocytes % 6.5 %; Neutrophils # 9.83 10^3/uL (1.8-7.7); Neutrophils % 85.8 %; Nucleated Red Blood Cells % 0 %; Platelet Count 373 10^3/cmm (130-400); Red Blood Count 4.11 10^6/uL (4.1-5.3); Red Cell Distribution Width 23.7 % (12.1-15.1); White Blood Count 11.5 10^3/uL (4.0-10.0)
[2022-02-07] MEDS: carvedilol 12.5 mg Tablet PEG-TUBE (06:11)
[2022-02-07 06:14] LABS: Anion Gap 17.3 (5-19); Blood Urea Nitrogen 20 mg/dL (8-23); Calcium 8.3 mg/dL (8.5-10.5); Carbon Dioxide 19 mmol/L (22-29); Chloride 103 mmol/L (98-107); Glucose 165 mg/dL (65-115); Osmolality Calculated 286 mOsm/kg (285-295); Potassium 4.3 mmol/L (3.5-5.1); Sodium 135 mmol/L (136-145)
[2022-02-07 06:20] LABS: Glucose Point of Care 156 mg/dL (70-110)
[2022-02-07] MEDS: insulin lispro 100 unit/1 mL SUBCUT ×2 (08:39→18:05)
--- NOTE | 2022-02-07 10:27 | PC.NURSE ---
PT. AMBULATED 1 LAP.
[2022-02-07] MEDS: HYDROcodone-acetaminophen 5-325 mg Tablet 1 TAB PO (10:46)
[2022-02-07] MEDS: sennosides-docusate Tablet 1 TAB PO (10:47)
[2022-02-07] MEDS: aspirin 81 mg EC Tablet PO (10:48)
[2022-02-07] MEDS: amlodipine 10 mg Tablet PO (10:48)
--- NOTE | 2022-02-07 11:43 | US_ITS ---
WS: [id number] RENAL ULTRASOUND HISTORY: renal failure COMPARISON: None available. TECHNIQUE: 2-D and color Doppler imaging of the kidney submitted. Technically limited evaluation of the kidneys due to body habitus. Right kidney: 10.8 cm x 4.5 cm x 6.0 cm. Normal echogenicity with no hydronephrosis or mass. Left kidney: 11.2 cm x 4.2 cm x 5.3 cm. Normal echogenicity with no hydronephrosis or mass. Aorta: Only a short segment of the aorta is visualized. This segment is above the aorta. Urinary Bladder: Minimally distended urinary bladder. There is a Real catheter present. US/US renal BI* [id number] IMPRESSION: 1. No hydronephrosis or mass identified. 2. No cortical thinning.
--- NOTE | 2022-02-07 11:57 | PM.CONSULT ---
Providers/Reason For Consult Consulting Physician/Specialty*: Hospitalist, Triston Bocanegra MD Reason for Consult*: Poor renal function Requesting Physician: Jerry Attending Physician: Triston Bocanegra MD Primary Care Provider: SHAINA Vela History of Present Illness History of Present Illness Wilfredo Pena is a 76 year old male who I am consulted on secondary to creatinine above baseline. He underwent laparoscopy with right hemicolectomy and ileocolic stapled anastomosis on February 05. It was noted his urine output was poor during the procedure. Creatinine following the procedure was 1.9. It was noted that his renal output improved on the floor is monitored through Real catheter. Hydrochlorothiazide, and ARB were stopped but he did receive his doses yesterday. He has been receiving IV fluids and an adequate dose rate. He denies any pre-existing knowledge of renal dysfunction, and does not use anti-inflammatories. Review of Systems General: Reports: 10 or more systems reviewed and unremarkable except in HPI and below Const: Denies: fever(s) or chills Eyes: Denies: change in vision ENMT: Denies: throat pain Card: Denies: chest pain Resp: Denies: dyspnea GI: Reports: abdominal pain : Denies: flank pain, dysuria or urinary dribbling Musc: Denies: neck pain Skin/Breast: Denies: rash Psych: Denies: anxiety or depression Juan Antonio/Lymph: Denies: easy bleeding All/Imm: Denies: urticaria Medications/Allergies Home Medications Medication Instructions Recorded Confirmed Last Taken Type aspirin 81 mg tablet,delayed 81 mg PO DAILY 01/25/20 02/06/22 01/28/22 History release (Adult Low Dose Aspirin) amlodipine 10 mg tablet 10 mg .ROUTE DAILY #90 tab 05/28/21 02/05/22 02/04/22 Rx carvedilol 12.5 mg tablet See Rx Instructions .ROUTE 05/28/21 02/06/22 01/30/22 07:00 Rx .COMPLEX #135 tab losartan 100 mg tablet 100 mg PO DAILY #90 tab 09/10/21 02/06/22 01/28/22 Rx hydrochlorothiazide 12.5 mg tablet 12.5 mg PO .As directed #180 tab 12/12/21 02/06/22 01/29/22 Rx blood sugar diagnostic (OneTouch #100 ea 01/09/22 02/06/22 Unknown Rx Verio test strips) fluticasone propionate 50 2 spray INTRANASAL DAILY #16 g 01/09/22 02/06/22 Unknown Rx mcg/actuation nasal spray,suspension (Flonase Allergy Relief) lancets 33 gauge (Erinuch Delica #100 each 01/09/22 02/06/22 Unknown Rx Lancets) umeclidinium 62.5 mcg/actuation 1 inh INHALATION DAILY #30 ea 01/09/22 02/06/22 01/29/22 Rx blister powder for inhalation (Incruse Ellipta) dapagliflozin 10 mg tablet 10 mg PO QAM #90 tab 01/11/22 02/06/22 01/28/22 Rx (Farxiga) ferrous sulfate 325 mg (65 mg 325 mg PO TID #90 tab 01/17/22 02/06/22 01/29/22 Rx iron) tablet (Feosol) albuterol sulfate 90 mcg/actuation 2 puff INHALATION Q6H PRN 01/28/22 02/06/22 01/29/22 17:00 History aerosol inhaler metformin 500 mg tablet 500 mg PO BID 02/06/22 02/06/22 Unknown History Allergies Allergy/AdvReac Type Severity Reaction Status Date / Time Penicillins Allergy Unknown Verified 02/05/22 10:32 Sulfa (Sulfonamide Allergy Unknown Verified 02/05/22 10:32 Antibiotics) Current Medications Generic Name Dose Route Start Last Admin Trade Name Freq PRN Reason Stop Dose Admin Hydrocodone Bitart/Acetaminophen 1 tab 02/05/22 16:26 02/07/22 10:46 Hydrocodone-Acetaminophen 5-325 Mg Tablet PO 1 tab Q6H PRN Administration MODERATE PAIN Amlodipine Besylate 10 mg 02/06/22 09:00 02/07/22 10:48 Amlodipine 10 Mg Tablet PO 10 mg DAILY MEGHA Administration Aspirin 81 mg 02/06/22 09:00 02/07/22 10:48 Aspirin 81 Mg Ec Tablet PO 81 mg DAILY MEGHA Administration Carvedilol 12.5 mg 02/06/22 06:00 02/07/22 06:11 Carvedilol 12.5 Mg Tablet PEG-TUBE 12.5 mg QAM MEGHA Administration Carvedilol 6.25 mg 02/05/22 18:00 02/06/22 16:53 Carvedilol 6.25 Mg Tablet PEG-TUBE Not Given QPM MEGHA Fluticasone Propionate 2 spray 02/06/22 09:00 02/07/22 10:50 Fluticasone Nasal [place] 16gm Btl INTRANASAL Not Given DAILY [facility] Heparin Sodium (Porcine) 5,000 unit 02/06/22 23:00 02/06/22 22:23 Heparin 5,000 Unit/Ml Inj 1 Ml SUBCUT 5,000 unit Q12H MEGHA Administration Potassium Chloride/Sodium Chloride 20 meq in 1,000 mls @ 125 mls/hr 02/05/22 16:26 02/07/22 03:38 Sodium Chlor 0.45% +Kcl 20 Meq IV 125 mls/hr .Q8H MEGHA Administration Insulin Human Lispro 0 unit 02/05/22 18:00 02/07/22 08:39 Insulin Lispro 100 Unit/1 Ml SUBCUT 4 unit TIDWM MEGHA Administration Protocol Non-Formulary Medication 1 inh 02/06/22 09:00 02/07/22 10:50 Umeclidinium [Incruse Ellipta] INHALATION Not Given DAILY [facility] Ondansetron HCl 4 mg 02/05/22 16:26 02/07/22 08:35 Ondansetron 2 Mg/Ml Sdv 2 Ml IVP 4 mg Q4H PRN Administration NAUSEA AND VOMITING Senna/Docusate Sodium 1 tab 02/05/22 18:00 02/07/22 10:47 Sennosides-Docusate Tablet PO 1 tab BID MEGHA Administration PFSH Acute PFSH: Medical History Cancer of ascending colon COPD (chronic obstructive pulmonary disease) Diabetes Hypertension Surgical History H/O esophagogastroduodenoscopy (01/30/22) gastritis and esophagitis History of cholecystectomy S/P right hemicolectomy (02/05/22) Status post colonoscopy with polypectomy (01/30/22) ascending colon mass, transverse colon polyps, diverticulosis Status post right inguinal hernia repair Family History Other CAD (coronary artery disease) Denies family history of Anesthesia complication Bleeding disorder Social History Smoking and tobacco status: former smoker Quit status (tobacco): has quit using tobacco Year quit tobacco: 2-3 years ago Second hand smoke exposure: No Alcohol intake: never Lives independently: Yes Household members: none Housing: House Marital status: Current occupational status: retired History of recent travel: No Current gender identity: Male Vitals/I&O/Wt Last Vital Signs Temp 97.9 F 02/07/22 05:00 Pulse 89 02/07/22 07:34 Resp 17 02/07/22 07:34 BP 160/82 02/07/22 05:00 Pulse Ox 91 02/07/22 07:34 02/06/22 02/07/22 02/07/22 22:59 06:59 14:59 Intake Total 1000 / 2435 1350.417 / 3785.417 0 / 0 Output Total 900 / 1350 650 / 650 Balance 1000 / 1985 450.417 / 2435.417 -650 / -650 Weight last 48 hrs Weight 106.594 kg Physical Exam Narrative: General exam is a conversive male, with no complaints. HEENT: Pupils equally round. Oropharynx clear. Neck is supple no lymphadenopathy thyromegaly Cardiovascular regular rate rhythm without murmur, no S3 or S4 Lungs clear no wheezing or crackles Abdomen is soft. A few scattered bowel sounds are noted. Midline scar is noted, without significant drainage exam demonstrates Real Extremities no cyanosis clubbing or edema, cap refill brisk Skin no rash Neuro no focal deficits. Urinary Catheter Management: Coude: Cath Placed During This Visit: yes Urinary Catheter Date of Insertion: 02/05/22 Urinary Catheter Time of Insertion: 12:15 Data : 02/07/22 04:50 02/07/22 04:50 Other Labs: CT abdomen pelvis on February 01 demonstrated scarring left kidney, no obstruction, prostate ground gland enlargement. Other findings concerning ascending colon mass as documented in report. A&P Assessment and plan (1) Acute kidney injury: He may have some pre-existing, at least stage I chronic kidney disease from his diabetes and hypertension. Renal function worsened after surgery Agree with holding hydrochlorothiazide as well as ARB Agree with current fluids, as potassium is normal, and will recheck creatinine tomorrow Renal ultrasound today to make sure no ureteral disruption/hydronephrosis is present. Certainly he is making a fair amount of urine at this present time. Check urinalysis We will continue to follow along with you. Status: Acute (2) S/P right hemicolectomy: Postoperative day #2 Status: Acute (3) Hypertension: Continue carvedilol Add hydralazine as needed Status: Acute Qualifiers: Hypertension type: essential hypertension Qualified Code(s): I10 - Essential (primary) hypertension (4) Diabetes: Agree with sliding scale, already ordered Status: Acute Qualifiers: Diabetes mellitus type: type 2 Diabetes mellitus detention insulin use: without watermelon inspector use Diabetes mellitus complication status: with hyperglycemia Qualified Code(s): E11.65 - Type 2 diabetes mellitus with hyperglycemia Plan Thank you for this consultation, I will continue to follow with you Consult Attestations Medical Necessity Statement: As per primary Coding Level of Care Code 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
[2022-02-07 12:15] LABS: Glucose Point of Care 137 mg/dL (70-110)
[2022-02-07] MEDS: heparin 5,000 unit/mL INJ 1 mL 5000 UNIT SUBCUT ×2 (12:23→23:23)
--- NOTE | 2022-02-07 12:51 | P.PN_ITS ---
Subjective Subjective: Patient had some bilious emesis last night and has been complaining of severe GERD. Passing flatus, had a small BM yesterday Medications: Reviewed: Yes Vitals/I&O/Wt Last Vital Signs Temp 97.9 F 02/07/22 05:00 Pulse 89 02/07/22 07:34 Resp 17 02/07/22 07:34 BP 160/82 02/07/22 05:00 Pulse Ox 91 02/07/22 07:34 02/06/22 02/07/22 02/07/22 22:59 06:59 14:59 Intake Total 1000 / 3785.417 1350.417 / 3785.417 1360 / 1360 Output Total 900 / 1350 650 / 650 Balance 1000 / 2435.417 450.417 / 2435.417 710 / 710 Weight last 48 hrs Weight 235 lb Physical Exam Narrative: Abdomen: Soft, mildly tender, mildly distended, incision clean dry and intact, Real to gravity Urinary Catheter Management: Coude: Cath Placed During This Visit: yes Urinary Catheter Date of Insertion: 02/05/22 Urinary Catheter Time of Insertion: 12:15 Data : 02/07/22 04:50 02/07/22 04:50 A&P Assessment and plan (1) S/P right hemicolectomy: 76-year-old male status post right hemicolectomy for ascending colon adenocarcinoma with postop ileus Acute renal failure with creatinine at 2.1, appreciate input from Dr. Bocanegra, renal ultrasound and urine studies pending Continue IV fluids at 125 cc/h Heparin 5000 every 8 for DVT prophylaxis Pepcid for GI prophylaxis Advance to full liquid diet Insulin sliding scale continue home medications except HCTZ and losartan Leave Real in for 24 more hours for accurate monitoring of urine output Ambulate with physical therapy Incentive spirometry, wean O2 to room air Patient will need greater than 2 nights of inpatient stay to ensure resolution of ileus and rule out postop complications Status: Acute Attestations Medical Necessity Statement*: post op ileus with ARF requiring continued inpatient stay 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
--- NOTE | 2022-02-07 13:23 | PC.NURSE ---
discussed home inhaler medication we do not carry. directed patient that if he has someone bring it in, he could continue using medication. pt stated he did not have anyone to bring it in, and thinks he will be okay with out the medication, he stated he just began using it.
[2022-02-07 13:56] LABS: Add Urine Culture? Yes; Bacteria Urine TRACE /hpf; Bilirubin Urine Neg (Negative); Blood Urine 3+ (Negative); Glucose Urine UA Norm (Normal); Ketones Urine Negative (Negative); Leukocyte Esterase Urine 1+ (Negative); Nitrate Urine Negative (Negative); Protein Urine Trace (Negative); RBC Urine 25-40 /hpf (0-2); Squamous Epithelial Cell Urine RARE /hpf (0-5); Urine Appearance Hazy (CLEAR); Urine Color Yellow (Yellow); Urobilinogen Urine Neg (Negative); WBC Urine 0-4 /hpf (0-5); pH Urine 5 (5-7)
[2022-02-07 16:09] LABS: Glucose Point of Care 163 mg/dL (70-110)
[2022-02-07] MEDS: carvedilol 6.25 mg Tablet PEG-TUBE (18:05)
[2022-02-07] MEDS: pantoprazole DR 40 mg Tablet PO (18:05)
--- NOTE | 2022-02-07 19:29 | PC.NURSE ---
patient sat up in the chair the majority of the day and tolerated it well. He walked in the cisse a total of three times. had some complaints of nausea/ indigestion treated with zofran, and had no episodes of emisis. pt is passing gas, and had 2 BM's.
[2022-02-07 21:07] LABS: Glucose Point of Care 129 mg/dL (70-110)
[2022-02-08] VITALS (9 sets, daily range): BP systolic 122–166; BP diastolic 65–72; PULSE 60–74; RESP 16–24; TEMP 36.7–37.3; O2SAT 93–98
[2022-02-08] MEDS: HYDROcodone-acetaminophen 5-325 mg Tablet 1 TAB PO (04:11)
[2022-02-08] MEDS: sodium chlor 0.45% +KCl 20 mEq 20 MEQ/1,000 ML BAG 125 MEQ IV (05:09)
[2022-02-08] MEDS: carvedilol 12.5 mg Tablet PEG-TUBE (05:12)
[2022-02-08 06:09] LABS: Basophils # 0.1 10^3/uL (0.0-0.1); Basophils % 0.5 %; Eosinophils % 0.3 %; Hematocrit 34.1 % (42.0-52.0); Hemoglobin 11.4 g/dL (11.7-16.6); Lymphocytes # 1.2 10^3/uL (0.8-4.8); Lymphocytes % 11.8 %; Mean Corpuscular HGB Conc 33.4 g/dL (30.0-36.0); Mean Corpuscular Hemoglobin 29.4 pg (28.0-34.0); Mean Corpuscular Volume 87.9 fl (80-94); Mean Platelet Volume 11.1 fL (7.4-10.4); Monocytes # 0.9 10^3/uL (0.2-0.9); Monocytes % 8.5 %; Neutrophils # 7.94 10^3/uL (1.8-7.7); Neutrophils % 78.4 %; Nucleated Red Blood Cells % 0 %; Platelet Count 295 10^3/cmm (130-400); Red Blood Count 3.88 10^6/uL (4.1-5.3); Red Cell Distribution Width 24.4 % (12.1-15.1); White Blood Count 10.1 10^3/uL (4.0-10.0)
[2022-02-08 06:32] LABS: Blood Urea Nitrogen 13 mg/dL (8-23); Calcium 8.8 mg/dL (8.5-10.5); Carbon Dioxide 19 mmol/L (22-29); Chloride 102 mmol/L (98-107); Glucose 146 mg/dL (65-115); Osmolality Calculated 279 mOsm/kg (285-295); Sodium 133 mmol/L (136-145)
[2022-02-08 06:40] LABS: Anion Gap 16.9 (5-19); Potassium 4.9 mmol/L (3.5-5.1)
[2022-02-08 06:42] LABS: Glucose Point of Care 131 mg/dL (70-110)
[2022-02-08 07:07] LABS: Slide Review Slide Review Perform
--- NOTE | 2022-02-08 08:44 | PM.PN ---
Documented by User: [email or web address] Meza [email or web address] 02/08/22 08:54 Subjective Subjective: Patient is asleep in chair when I entered the room, patient is easy to wake. Patient continues to explain discomfort with reflux symptoms making it difficult to sleep, he was finally able to have some relief around 2100 last evening in upright position. Patient continues to deny any pain with urination, flank pain, fever, nausea and vomiting. Patient denies any unusual swelling of extremities. Medications: Reviewed: Yes Vitals/I&O/Wt Last Vital Signs Temp 99.2 F 02/08/22 07:40 Pulse 66 02/08/22 07:40 Resp 16 02/08/22 07:40 BP 149/72 02/08/22 07:40 Pulse Ox 97 02/08/22 07:40 02/07/22 02/08/22 02/08/22 22:59 06:59 14:59 Intake Total 1600 / 2960 1000 / 3960 Output Total 525 / 1175 1000 / 2175 Balance 1075 / 1785 0 / 1785 Physical Exam Narrative: General: Elderly appearing male asleep in chair, easy to awake. HEENT: Normocephalic, atraumatic. Cardiac: Regular rate and rhythm. S1 S2 presnet. No murmurs rubs or gallops. Peripheral pulse 2+. Respiratory: Wheezing present in bilateral lobes, no rales or rhonchi. Air entry equal bilaterally. GI: Soft, tender to palpation as expected following hemicolectomy, midline incision present, mildly distended. Normoactive bowel sounds, no organomegaly. Extremities: No cyanosis, clubbing, or edema. No obvious abnormalities. Neuro: No focal neurological deficits. Urinary Catheter Management: Coude: Cath Placed During This Visit: yes Urinary Catheter Date of Insertion: 02/05/22 Urinary Catheter Time of Insertion: 12:15 Data : 02/08/22 04:55 02/08/22 04:55 Other Labs: UA: No evidence of infection, consitent with trauma from arriola. Renal US: pending Micro: Microbiology 02/07/22 13:14 Urine Culture - Preliminary Urine,Clean Catch A&P Assessment and plan (1) Acute kidney injury: Patient may have some pre-existing CKD from his history of diabetes and hypertension with worsening renal function after surgery. His renal function is improved this morning with creatinine of 1.3. Continue to hold hydrochlorathiazide and ARB. Continue IV fluids Renal US still pending to assess for hydronephrosis/ureteral disruption. Patient continues to have adequate urine output. UA consistent with trauma from arriola, no infection suspected. 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 Patient continues to explain discomfort with reflux symptoms making it difficult to sleep, he was finally able to have some relief around 2100 last evening in upright position. Patient continues to deny any pain with urination, flank pain, fever, nausea and vomiting. Patient denies any unusual swelling of extremities. Agree with above. I interviewed the patient as well. Physical Exam Narrative: General: Elderly appearing male asleep in chair, easy to awake. HEENT: Normocephalic, atraumatic. Cardiac: Regular rate and rhythm. S1 S2 presnet. No murmurs rubs or gallops. Peripheral pulse 2+. Respiratory: Wheezing present in bilateral lobes, no rales or rhonchi. Air entry equal bilaterally. GI: Soft, tender to palpation as expected following hemicolectomy, midline incision present, mildly distended. Normoactive bowel sounds, no organomegaly. Extremities: No cyanosis, clubbing, or edema. No obvious abnormalities. Neuro: No focal neurological deficits. Agree with above, I examined the patient as well Urinary Catheter Management: Coude: Cath Placed During This Visit: yes Data : 02/08/22 04:55 02/08/22 04:55 Other Labs: UA: No evidence of infection, consitent with trauma from arriola. Renal US: Normal A&P Assessment and plan (1) Acute kidney injury: Patient may have some pre-existing CKD from his history of diabetes and hypertension with worsening renal function after surgery. His renal function is improved this morning with creatinine of 1.3. Continue to hold hydrochlorathiazide and ARB. Can likely resume on discharge Continue IV fluids Renal ultrasound is normal Patient continues to have adequate urine output. UA consistent with trauma from arriola, no infection suspected. Status: Acute Plan Hypertension. stable. On coreg, amlodopine. Hydralazine as needed. As renal function is improved, will sign off. Please call for any other questions or concerns. Thank you for this consultation. 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
[2022-02-08] MEDS: aspirin 81 mg EC Tablet PO (08:59)
[2022-02-08] MEDS: amlodipine 10 mg Tablet PO (08:59)
[2022-02-08] MEDS: sennosides-docusate Tablet 1 TAB PO ×2 (08:59→17:53)
[2022-02-08] MEDS: pantoprazole DR 40 mg Tablet PO ×2 (08:59→17:53)
[2022-02-08] MEDS: fluticasone nasal spray 16gm Btl 2 SPRAY INTRANASAL (09:01)
[2022-02-08 11:20] LABS: Glucose Point of Care 195 mg/dL (70-110)
--- NOTE | 2022-02-08 12:18 | P.PN_ITS ---
Subjective Subjective: Patient denies any nausea, vomiting, tolerating full liquid diet. Has had 3 bowel movements so far. He had significant GERD last night. Medications: Reviewed: Yes Vitals/I&O/Wt Last Vital Signs Temp 99.2 F 02/08/22 12:00 Pulse 60 02/08/22 12:00 Resp 17 02/08/22 12:00 BP 122/66 02/08/22 12:00 Pulse Ox 96 02/08/22 12:00 02/07/22 02/08/22 02/08/22 22:59 06:59 14:59 Intake Total 1600 / 3960 1000 / 3960 Output Total 525 / 2175 1000 / 2175 Balance 1075 / 1785 0 / 1785 Physical Exam Narrative: Abdomen: Soft, slightly distended, tender, incision clean dry and intact Urinary Catheter Management: Coude: Cath Placed During This Visit: yes Urinary Catheter Date of Insertion: 02/05/22 Urinary Catheter Time of Insertion: 12:15 Data : 02/08/22 04:55 02/08/22 04:55 Micro: Microbiology 02/07/22 13:14 Urine Culture - Preliminary Urine,Clean Catch A&P Assessment and plan (1) S/P right hemicolectomy: 76-year-old male status post right hemicolectomy for ascending colon adenocarcinoma with postop ileus Heparin 5000 every 8 for DVT prophylaxis Pepcid for GI prophylaxis full liquid diet Insulin sliding scale continue home medications except HCTZ and losartan Ambulate with physical therapy Incentive spirometry, wean O2 to room air We will arrange home health, since he lives alone Patient will need greater than 2 nights of inpatient stay to ensure resolution of ileus and rule out postop complications Status: Acute (2) Acute kidney injury: Good urine output good overnight, creatinine is down to 1.3 DC Real today Decrease IV fluids to 50 cc/h Status: Acute Attestations Medical Necessity Statement*: waiting for resolution of ileus and acute kidney injury Coding Level of Care Code 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
[2022-02-08] MEDS: insulin lispro 100 unit/1 mL SUBCUT (12:26)
[2022-02-08] MEDS: heparin 5,000 unit/mL INJ 1 mL 5000 UNIT SUBCUT ×2 (12:27→22:25)
--- NOTE | 2022-02-08 13:08 | PC.SOCIAL ---
Pg 2 IMM Explained to pt Pg 2 IMM. No questions voiced. Provided pt a copy. Initialed, dated, & timed a copy & placed in chart.
[2022-02-08 16:52] LABS: Glucose Point of Care 147 mg/dL (70-110)
[2022-02-08] MEDS: carvedilol 6.25 mg Tablet PEG-TUBE (17:53)
[2022-02-08] MEDS: sodium chlor 0.45% +KCl 20 mEq 20 MEQ/1,000 ML BAG 50 MEQ IV (17:53)
[2022-02-08 21:17] LABS: Glucose Point of Care 160 mg/dL (70-110)
[2022-02-09] VITALS (8 sets, daily range): BP systolic 129–164; BP diastolic 61–81; PULSE 61–82; RESP 16–20; TEMP 36.8–37.4; O2SAT 94–97
[2022-02-09] MEDS: carvedilol 12.5 mg Tablet PEG-TUBE (05:16)
[2022-02-09 06:36] LABS: Glucose Point of Care 144 mg/dL (70-110)
--- NOTE | 2022-02-09 08:28 | P.PN_ITS ---
Subjective Subjective: Patient states that his heartburn is better controlled, denies significant abdominal pain, nausea or vomiting, had couple of bowel movements Vitals/I&O/Wt Last Vital Signs Temp 98.5 F 02/09/22 07:59 Pulse 61 02/09/22 07:59 Resp 16 02/09/22 07:59 BP 149/62 02/09/22 07:59 Pulse Ox 95 02/09/22 07:59 02/08/22 02/09/22 02/09/22 22:59 06:59 14:59 Intake Total 480 / 1680 200 / 1680 Output Total 850 / 1925 825 / 1925 Balance -370 / -245 -625 / -245 Physical Exam Narrative: Abdomen: Soft, normally tender, nondistended, incision clean dry and intact Urinary Catheter Management: Coude: Cath Placed During This Visit: yes Urinary Catheter Date of Insertion: 02/05/22 Urinary Catheter Time of Insertion: 12:15 Data : 02/08/22 04:55 02/08/22 04:55 Micro: Microbiology 02/07/22 13:14 Urine Culture - Preliminary Urine,Clean Catch A&P Assessment and plan (1) S/P right hemicolectomy: 76-year-old male status post right hemicolectomy for ascending colon adenocarcinoma with postop ileus Heparin 5000 every 8 for DVT prophylaxis Protonix 40 mg p.o. twice daily, added Maalox Advance to GI soft diet Insulin sliding scale continue home medications except HCTZ and losartan Ambulate with physical therapy Incentive spirometry, wean O2 to room air We will arrange home health, since he lives alone Patient will need greater than 2 nights of inpatient stay to ensure resolution of ileus and rule out postop complications Status: Acute (2) Acute kidney injury: Labs pending this morning DC IV fluids if creatinine is improved Status: Acute Attestations Medical Necessity Statement*: Patient will need 1 more night of inpatient stay Coding Level of Care Code Acute Laundry Or Dry Cleaners Counter Clerk for Maryana Wright Diagnoses S/P right hemicolectomy Z90.49 Acute kidney injury N17.9
[2022-02-09] MEDS: insulin lispro 100 unit/1 mL SUBCUT ×2 (09:57→17:27)
[2022-02-09] MEDS: aspirin 81 mg EC Tablet PO (09:58)
[2022-02-09] MEDS: pantoprazole DR 40 mg Tablet PO ×2 (09:58→17:27)
[2022-02-09] MEDS: sennosides-docusate Tablet 1 TAB PO ×2 (09:58→17:27)
[2022-02-09] MEDS: amlodipine 10 mg Tablet PO (09:58)
[2022-02-09 10:28] LABS: Anion Gap 13.6 (5-19); Blood Urea Nitrogen 10 mg/dL (8-23); Calcium 7.9 mg/dL (8.5-10.5); Carbon Dioxide 23 mmol/L (22-29); Chloride 102 mmol/L (98-107); Glucose 193 mg/dL (65-115); Osmolality Calculated 282 mOsm/kg (285-295); Potassium 4.6 mmol/L (3.5-5.1); Sodium 134 mmol/L (136-145)
[2022-02-09 10:30] LABS: Basophils # 0.1 10^3/uL (0.0-0.1); Basophils % 0.8 %; Eosinophils # 0.1 10^3/uL (0.0-0.8); Eosinophils % 2.1 %; Hematocrit 30.1 % (42.0-52.0); Hemoglobin 10.6 g/dL (11.7-16.6); Lymphocytes # 1.1 10^3/uL (0.8-4.8); Lymphocytes % 16.7 %; Mean Corpuscular HGB Conc 35.2 g/dL (30.0-36.0); Mean Corpuscular Hemoglobin 31.4 pg (28.0-34.0); Mean Corpuscular Volume 89.1 fl (80-94); Mean Platelet Volume 9.4 fL (7.4-10.4); Monocytes # 0.6 10^3/uL (0.2-0.9); Monocytes % 9.6 %; Neutrophils # 4.63 10^3/uL (1.8-7.7); Neutrophils % 70.5 %; Nucleated Red Blood Cells % 0 %; Platelet Count 296 10^3/cmm (130-400); Red Blood Count 3.38 10^6/uL (4.1-5.3); White Blood Count 6.6 10^3/uL (4.0-10.0)
[2022-02-09 11:10] LABS: Slide Review Slide Review Perform
[2022-02-09 11:55] LABS: Glucose Point of Care 138 mg/dL (70-110)
[2022-02-09] MEDS: heparin 5,000 unit/mL INJ 1 mL 5000 UNIT SUBCUT ×2 (11:56→22:26)
[2022-02-09] MEDS: sodium chlor 0.45% +KCl 20 mEq 20 MEQ/1,000 ML BAG 50 MEQ IV (14:35)
--- NOTE | 2022-02-09 17:04 | PC.NURSE ---
Arriola this nurse saw that computer system still showed pt to have arriola in place. this nurse reviewed completed charting to see time and date of removal to properly remove arriola out of the computer system in pt chart. arriola was removed by Son Shannon 02/08/22 0842
[2022-02-09 17:22] LABS: Glucose Point of Care 142 mg/dL (70-110)
[2022-02-09] MEDS: carvedilol 6.25 mg Tablet PEG-TUBE (17:27)
[2022-02-09 20:06] LABS: Glucose Point of Care 130 mg/dL (70-110)
[2022-02-10] VITALS (8 sets, daily range): BP systolic 120–164; BP diastolic 55–75; PULSE 60–75; RESP 16–18; TEMP 36.5–37.1; O2SAT 93–97
[2022-02-10 04:42] LABS: Basophils # 0.1 10^3/uL (0.0-0.1); Basophils % 0.8 %; Eosinophils # 0.3 10^3/uL (0.0-0.8); Eosinophils % 3.9 %; Hematocrit 32.2 % (42.0-52.0); Hemoglobin 9.9 g/dL (11.7-16.6); Lymphocytes # 1.8 10^3/uL (0.8-4.8); Lymphocytes % 25.4 %; Mean Corpuscular HGB Conc 30.7 g/dL (30.0-36.0); Mean Corpuscular Hemoglobin 26.7 pg (28.0-34.0); Mean Corpuscular Volume 86.8 fl (80-94); Mean Platelet Volume 9.1 fL (7.4-10.4); Monocytes # 0.6 10^3/uL (0.2-0.9); Monocytes % 8.4 %; Neutrophils # 4.38 10^3/uL (1.8-7.7); Neutrophils % 61.2 %; Nucleated Red Blood Cells % 0 %; Platelet Count 366 10^3/cmm (130-400); Red Blood Count 3.71 10^6/uL (4.1-5.3); White Blood Count 7.2 10^3/uL (4.0-10.0)
[2022-02-10 05:00] LABS: Blood Urea Nitrogen 10 mg/dL (8-23); Calcium 7.9 mg/dL (8.5-10.5); Carbon Dioxide 23 mmol/L (22-29); Chloride 102 mmol/L (98-107); Glucose 144 mg/dL (65-115); Osmolality Calculated 282 mOsm/kg (285-295); Sodium 135 mmol/L (136-145)
[2022-02-10 05:04] LABS: Anion Gap 14.4 (5-19); Potassium 4.4 mmol/L (3.5-5.1)
[2022-02-10] MEDS: carvedilol 12.5 mg Tablet PEG-TUBE (05:10)
[2022-02-10 05:12] LABS: Add RBC Morph Yes; Slide Review Slide Review Perform
[2022-02-10 05:18] LABS: Hypochromasia 1+; RBC Morph Comp No
[2022-02-10 05:19] LABS: Anisocytosis 2+
[2022-02-10 05:20] LABS: Ovalocytes 1+
[2022-02-10 05:21] LABS: Poikilocytosis 2+; Polychromasia Trace; Tear Drop Cells Trace
[2022-02-10 06:44] LABS: Glucose Point of Care 122 mg/dL (70-110)
[2022-02-10] MEDS: pantoprazole DR 40 mg Tablet PO ×2 (09:17→18:05)
[2022-02-10] MEDS: amlodipine 10 mg Tablet PO (09:17)
[2022-02-10] MEDS: aspirin 81 mg EC Tablet PO (09:17)
[2022-02-10] MEDS: sennosides-docusate Tablet 1 TAB PO ×2 (09:17→18:05)
--- NOTE | 2022-02-10 09:49 | PC.SOCIAL ---
IMM Update pg 2 of IMM updated and reviewed w/ patient. Copy provided and copy in chart updated.
[2022-02-10 11:01] LABS: Glucose Point of Care 170 mg/dL (70-110)
[2022-02-10] MEDS: heparin 5,000 unit/mL INJ 1 mL 5000 UNIT SUBCUT ×2 (12:53→23:24)
[2022-02-10] MEDS: insulin lispro 100 unit/1 mL SUBCUT ×2 (12:55→18:05)
[2022-02-10 16:37] LABS: Glucose Point of Care 142 mg/dL (70-110)
[2022-02-10] MEDS: carvedilol 6.25 mg Tablet PEG-TUBE (18:05)
--- NOTE | 2022-02-10 20:01 | PM.PN ---
Subjective Subjective: Patient tolerating a soft diet, had 2 BMs, ambulating, off oxygen Medications: Reviewed: Yes Vitals/I&O/Wt Last Vital Signs Temp 97.7 F 02/10/22 15:30 Pulse 65 02/10/22 15:30 Resp 18 02/10/22 15:30 BP 135/57 02/10/22 15:30 Pulse Ox 97 02/10/22 15:30 02/10/22 02/10/22 02/10/22 06:59 14:59 22:59 Intake Total 1020.833 / 1260.833 240 / 1260.833 Output Total Balance 1020.833 / 1260.833 240 / 1260.833 Physical Exam Narrative: Abdomen: Soft, slightly distended, and minimally tender, incision clean dry and intact Urinary Catheter Management: Coude: Cath Placed During This Visit: yes, but has since been removed by the nurse Reason for Continuing Indwelling Catheter: Decision to DC Catheter Urinary Catheter Date of Insertion: 02/05/22 Urinary Catheter Time of Insertion: 12:15 Date Urinary Catheter Removed: 02/08/22 Time Urinary Catheter Discontinued: 08:42 Data : 02/10/22 04:33 02/10/22 04:33 A&P Assessment and plan (1) S/P right hemicolectomy: 76-year-old male status post right hemicolectomy for ascending colon adenocarcinoma with postop ileus which has resolved Heparin 5000 every 8 for DVT prophylaxis Protonix 40 mg p.o. twice daily, added Maalox GI soft diet Insulin sliding scale continue home medications except HCTZ and losartan Ambulate with physical therapy Incentive spirometry, wean O2 to room air We will arrange [facility], since he lives alone Patient will need greater than 2 nights of inpatient stay to ensure resolution of ileus and rule out postop complications Status: Acute (2) Acute kidney injury: Creatinine down to 1.2, acute kidney injury has resolved Status: Acute Attestations Medical Necessity Statement*: Patient will go home tomorrow morning Coding Level of Care Code Acute Radiation Engineer for Maryana Fwely Diagnoses S/P right hemicolectomy Z90.49 Acute kidney injury N17.9
[2022-02-10 20:48] LABS: Glucose Point of Care 135 mg/dL (70-110)
[2022-02-11 04:00] VITALS: BP 155/67; PULSE 73; RESP 17; TEMP 37.4; O2SAT 93
[2022-02-11] MEDS: carvedilol 12.5 mg Tablet PEG-TUBE (05:34)
[2022-02-11 06:37] LABS: Glucose Point of Care 120 mg/dL (70-110)
[2022-02-11 07:41] VITALS: BP 107/59; PULSE 61; RESP 18; TEMP 36.8; O2SAT 94
[2022-02-11 08:08] VITALS: PULSE 64; RESP 17; O2SAT 95
[2022-02-11 08:09] VITALS: O2SAT 95
[2022-02-11] MEDS: sennosides-docusate Tablet 1 TAB PO (08:11)
[2022-02-11] MEDS: pantoprazole DR 40 mg Tablet PO (08:11)
[2022-02-11] MEDS: aspirin 81 mg EC Tablet PO (08:11)
[2022-02-11] MEDS: amlodipine 10 mg Tablet PO (08:11)
--- NOTE | 2022-02-11 11:00 | PM.PN ---
Subjective Subjective: Patient ready to go home, no nausea or vomiting Medications: Reviewed: Yes Vitals/I&O/Wt Last Vital Signs Temp 98.2 F 02/11/22 07:41 Pulse 64 02/11/22 08:08 Resp 17 02/11/22 08:08 BP 107/59 02/11/22 07:41 Pulse Ox 95 02/11/22 08:09 02/10/22 02/11/22 02/11/22 22:59 06:59 14:59 Intake Total 360 / 1380.833 240 / 240 Output Total 200 / 200 Balance 360 / 1180.833 -200 / 1180.833 240 / 240 Physical Exam Narrative: Abdomen: Soft, nontender, nondistended, incisions healing well Urinary Catheter Management: Coude: Cath Placed During This Visit: yes, but has since been removed by the nurse Reason for Continuing Indwelling Catheter: Decision to DC Catheter Urinary Catheter Date of Insertion: 02/05/22 Urinary Catheter Time of Insertion: 12:15 Date Urinary Catheter Removed: 02/08/22 Time Urinary Catheter Discontinued: 08:42 Data : 02/10/22 04:33 02/10/22 04:33 A&P Assessment and plan (1) S/P right hemicolectomy: Overall doing well DC home today Status: Acute Attestations Medical Necessity Statement*: DC home today Coding Level of Care Code Acute Personal Health Coach for Chg Fwd Diagnoses S/P right hemicolectomy Z90.49
--- NOTE | 2022-02-11 11:02 | PM.DCS ---
Discharge Providers Date of Admission: 02/05/22 15:48 Date of Discharge: February 11, 2022 Attending Provider at Admission: Saeed Edwards MD Attending Provider at Discharge: Triston Bocanegra MD Primary Care Provider: SHAINA Vela Diagnoses at Discharge Discharge Diagnosis (1) S/P right hemicolectomy: Status: Acute Reason for Visit Reason for Visit: colon mass Brief History: This is a 76-year-old male who was noted to have iron deficiency anemia and during work-up was found to have a ascending colon adenocarcinoma Hospital Course Hospital Course Patient was admitted to the hospital after he underwent laparoscopic right hemicolectomy. By day 2 patient had return of bowel function and his diet was slowly advanced to GI soft diet. In the immediate postop. His creatinine had gone up to 2 most likely prerenal. Ultrasound of the kidneys were normal. By day 5 his creatinine has trended down to normal. At time of discharge he is tolerating a GI soft diet, having bowel movements, his vital signs are stable and his incision is clean dry and intact. Physical Exam Urinary Catheter Management: Coude: Cath Placed During This Visit: yes, but has since been removed by the nurse Reason for Continuing Indwelling Catheter: Decision to DC Catheter Urinary Catheter Date of Insertion: 02/05/22 Urinary Catheter Time of Insertion: 12:15 Date Urinary Catheter Removed: 02/08/22 Time Urinary Catheter Discontinued: 08:42 Discharge Data Studies Completed and Pending Completed Studies During Hospitalization Category Date Time Status Pathology: Surgical [PTH] Routine Pth 02/05/22 14:51 Completed US renal BI* [id number] Routine Ultrasound 02/07/22 11:43 Completed Radiology Impressions Renal Ultrasound 02/07/22 11:43 IMPRESSION: 1. No hydronephrosis or mass identified. 2. No cortical thinning. Laboratory Results WBC 7.2 10^3/uL (4.0-10.0) 02/10/22 04:33 RBC 3.71 10^6/uL (4.1-5.3) L 02/10/22 04:33 Hgb 9.9 g/dL (11.7-16.6) L 02/10/22 04:33 Hct 32.2 % (42.0-52.0) L 02/10/22 04:33 MCV 86.8 fl (80-94) 02/10/22 04:33 MCH 26.7 pg (28.0-34.0) L D 02/10/22 04:33 MCHC 30.7 g/dL (30.0-36.0) D 02/10/22 04:33 RDW Not Reportable 02/10/22 04:33 Plt Count 366 10^3/cmm (130-400) 02/10/22 04:33 MPV 9.1 fL (7.4-10.4) 02/10/22 04:33 Neut % (Auto) 61.2 % 02/10/22 04:33 Lymph % (Auto) 25.4 % 02/10/22 04:33 Twiggs % (Auto) 8.4 % 02/10/22 04:33 Eos % (Auto) 3.9 % 02/10/22 04:33 Baso % (Auto) 0.8 % 02/10/22 04:33 Neut # (Auto) 4.38 10^3/uL (1.8-7.7) 02/10/22 04:33 Lymph # (Auto) 1.8 10^3/uL (0.8-4.8) 02/10/22 04:33 Twiggs # (Auto) 0.6 10^3/uL (0.2-0.9) 02/10/22 04:33 Eos # (Auto) 0.3 10^3/uL (0.0-0.8) 02/10/22 04:33 Baso # (Auto) 0.1 10^3/uL (0.0-0.1) 02/10/22 04:33 Nucleated RBC % (auto) 0 % 02/10/22 04:33 Nucleated RBCs # 0.0 /100WBC 02/10/22 04:33 Polychromasia Trace 02/10/22 04:33 Hypochromasia 1+ H 02/10/22 04:33 Poikilocytosis 2+ H 02/10/22 04:33 Anisocytosis 2+ H 02/10/22 04:33 Tear Drop Cells Trace 02/10/22 04:33 Ovalocytes 1+ H 02/10/22 04:33 Sodium 135 mmol/L (136-145) L 02/10/22 04:33 Potassium 4.4 mmol/L (3.5-5.1) 02/10/22 04:33 Chloride 102 mmol/L (98-107) 02/10/22 04:33 Carbon Dioxide 23 mmol/L (22-29) 02/10/22 04:33 Anion Gap 14.4 (5-19) 02/10/22 04:33 BUN 10 mg/dL (8-23) 02/10/22 04:33 Creatinine 1.2 mg/dL (0.7-1.2) 02/10/22 04:33 GFR Calculation Not Reportable 02/10/22 04:33 Glucose 144 mg/dL (65-115) H 02/10/22 04:33 POC Glucose 120 mg/dL (70-110) H 02/11/22 06:30 Calculated Osmolality 282 mOsm/kg (285-295) L 02/10/22 04:33 Calcium 7.9 mg/dL (8.5-10.5) L 02/10/22 04:33 Carcinoembryonic Ag 5.1 ng/mL (0.0-4.7) H 02/05/22 10:00 Urine Color Yellow (Yellow) 02/07/22 13:14 Urine Appearance Hazy (CLEAR) A 02/07/22 13:14 Urine pH 5 (5-7) 02/07/22 13:14 Ur Specific Farrell 1.020 (1.005-1.030) 02/07/22 13:14 Urine Protein Trace (Negative) 02/07/22 13:14 Urine Glucose (UA) Norm (Normal) 02/07/22 13:14 Urine Ketones Negative (Negative) 02/07/22 13:14 Urine Blood 3+ (Negative) H 02/07/22 13:14 Urine Nitrate Negative (Negative) 02/07/22 13:14 Urine Bilirubin Neg (Negative) 02/07/22 13:14 Urine Urobilinogen Neg mg/dL (Negative) 02/07/22 13:14 Ur Leukocyte Esterase 1+ (Negative) H 02/07/22 13:14 Urine RBC 25-40 /hpf (0-2) H 02/07/22 13:14 Urine WBC 0-4 /hpf (0-5) H 02/07/22 13:14 Ur Squamous Epith Cells Rare /hpf (0-5) 02/07/22 13:14 Amorphous Sediment Not Reportable 02/07/22 13:14 Urine Bacteria Trace /hpf (NONE) 02/07/22 13:14 Vitals Last Vital Signs Temp 98.2 F 02/11/22 07:41 Pulse 64 02/11/22 08:08 Resp 17 02/11/22 08:08 BP 107/59 02/11/22 07:41 Pulse Ox 95 02/11/22 08:09 Discharge Plan Discharge Patient Disposition: Home Condition: Stable Prescriptions: New Zofran 4 mg tablet 4 mg PO Q6H PRN (Reason: nausea and vomiting) Qty: 20 0RF Senna with Docusate Sodium 8.6-50 mg tablet 1 tab-cap PO BID Qty: 30 0RF Protonix 40 mg tablet,delayed release (DR/EC) 40 mg PO DAILY 42 Days 0RF hydrocodone-acetaminophen 5-325 mg tablet 1 tab PO Q6H PRN (Reason: pain) Qty: 20 0RF Continued amlodipine 10 mg tablet 10 mg .ROUTE DAILY Qty: 90 3RF Rx Instructions: 10 mg daily; carvedilol 12.5 mg tablet See Rx Instructions .ROUTE .COMPLEX Qty: 135 3RF Dose Instruction: TAKE 1 TABLET BY MOUTH ONCE DAILY IN THE MORNING AND 1/2 (ONE-HALF) IN THE EVENING. MUST ADMINISTER WITH A MEAL/FOOD. *REPLACES METOPROLOL* Rx Instructions: TAKE 1 TABLET BY MOUTH ONCE DAILY IN THE MORNING AND 1/2 (ONE-HALF) IN THE EVENING. MUST ADMINISTER WITH A MEAL/FOOD. *REPLACES METOPROLOL* (DME) lancets [OneTouch Delica Lancets] 33 gauge misc See Rx Instructions .ROUTE .MEDSUPPLY Qty: 100 4RF Rx Instructions: ONE DAILY (DME) OneTouch Verio test strips Strip See Rx Instructions .ROUTE .COMPLEX Qty: 100 4RF Dose Instruction: USE 1 STRIP TO CHECK GLUCOSE ONCE DAILY AND NEEDED Rx Instructions: USE 1 STRIP TO CHECK GLUCOSE ONCE DAILY AND NEEDED Incruse Ellipta 62.5 mcg/actuation blister with device 1 inh inhalation DAILY Qty: 30 5RF fluticasone propionate [Flonase Allergy Relief] 50 mcg/actuation spray,suspension 2 spray intranasal DAILY Qty: 16 6RF Label Comments: pt has not started this medication Rx Instructions: administer into each nostril aspirin [Adult Low Dose Aspirin] 81 mg tablet,delayed release (DR/EC) 81 mg PO DAILY 0RF losartan 100 mg tablet 100 mg PO DAILY Qty: 90 3RF hydrochlorothiazide 12.5 mg tablet 12.5 mg PO .As directed Qty: 180 3RF Rx Instructions: Alternate 12.5mg (1 tab) every other day with 25 mg (2 tab) Farxiga 10 mg tablet 10 mg PO QAM Qty: 90 0RF ferrous sulfate [Feosol] 325 mg (65 mg iron) tablet 325 mg PO TID Qty: 90 2RF Rx Instructions: take with food albuterol sulfate 90 mcg/actuation HFA aerosol inhaler 2 puff inhalation Q6H PRN (Reason: Shortness Of Breath) 0RF metformin 500 mg tablet 500 mg PO BID 0RF Discharge Orders: Discharge Order (Routine); Ordered 02/11/22 Ordered By: Saeed Edwards Referrals: In Home Service Setup [Other] (Call this number if you are interested in in home services. They will ask you a series of questions and assign you points based off your answers. Your total # of points will determine if you qualify for services and if so how much you qualify for. ) [facility] ([facility]) [Outside] Saeed Edwards MD [Physician] - 02/19/22 11:20 am Amita Montgomery FNP [Primary Care Provider] - 7-10 days Patient Instructions: Hydrocodone/Acetaminophen (By mouth), Laxative, Stool Softeners (By mouth), Ondansetron (By mouth), Pantoprazole (By mouth), Colectomy (GEN), Opioid Safety Activity Restrictions/Additional Instructions: Diet Advance to normal diet as tolerated, increase fluid intake as much as possible. Activity Avoid strenuous activity for 2 weeks but continue with daily activities including walking as tolerated. Do not lift more than 10 pounds for 2 weeks Return to work/school You can return to work/ school whenever you feel ready as long as you don?t have to lift more than 10 pounds at work. If you have paperwork that needs to be completed for time off from work, please contact my office Driving You can resume driving once you stop using narcotic pain medications, and transition to non-opioid pain medications like Tylenol, Motrin, Aleve, etc. Medications Pain Take opioid pain medications as prescribed and transition to non-opioid pain medications like Tylenol, Motrin, Aleve etc. over the next few days. The goal of the pain medications is to make the pain bearable and not to be pain free since you recently had surgery. Resume all home medications after surgery as per the medication reconciliation list Nausea Nausea is common after surgery, take nausea medications as needed and stay on a liquid bland diet until nausea resolves. Constipation The combination of surgery, anesthesia and pain medications can result in constipation. Take stool softeners as prescribed. If you do not have a bowel movement in 3 days, please take an kirt-pbt-uwlicxo laxative like MiraLAX to address the constipation. Shower It is ok to shower but avoid getting the wound wet for 48 hours after surgery. Do not soak in bathtub, swimming pool or hot tub for 2 weeks. Wound care If glue has been used on your incisions after surgery, the glue on the incision will peel slowly over the next two weeks. The stitches used are dissolvable and will not need to be removed. Do not apply antibiotics or other medications on the incision Problems with the wound: you can develop some redness around the incision from bruising after surgery. If there is increasing pain, redness, tenderness around the incision with or without drainage, please contact my office to rule out an infection. Sometimes the skin at the incisions can separate, resulting in reopening of the wound. Cover the wound with antibiotic cream and sterile dressings and contact my office. Contact physician Call the office at [phone] during office hours or go the Emergency Room ?Fever to 100.4 or greater ?Shaking chills ?Pain that increases over time ?Redness, warmth, or pus draining from incision sites ?Persistent nausea or inability to take in liquids Discharge Attestations Time Spent in Discharge Care*: less than 30 min Quality Metrics Clinical Quality Measures [ No reported AMI, CVA or VTE this stay] Coding Level of Care Code Acute Chg FW DC note Diagnoses S/P right hemicolectomy Z90.49
[2022-02-11 11:15] VITALS: BP 139/66; PULSE 58; RESP 16; TEMP 36.6; O2SAT 96
[2022-02-11 11:43] LABS: Glucose Point of Care 240 mg/dL (70-110)
== END 2022-02-11 13:46 | disposition home health service (06) | DRG 330 ==
LOC: MEDSURG 15:49
PROVIDERS: Admitting Provider Surgery; PCP Nurse Practitioner Family; Visit Provider Internal Medicine
PROC: 0DTF4ZZ Resection of Right Large Intestine, Percutaneous Endoscopic Approach (ICD-10-PCS; CPT 44205; principal; 2022-02-05 11:50)
DX: C18.2 Malignant neoplasm of ascending colon (principal); K91.89 Other postprocedural complications and disorders of digestive system; K56.7 Ileus, unspecified; N17.9 Acute kidney failure, unspecified; Y83.6 Removal of other organ (partial) (total) as the cause of abnormal reaction of the patient, or of later complication, without mention of misadventure at the time of the procedure; D50.9 Iron deficiency anemia, unspecified; J44.9 Chronic obstructive pulmonary disease, unspecified; E11.9 Type 2 diabetes mellitus without complications; I10 Essential (primary) hypertension; E86.0 Dehydration; E11.65 Type 2 diabetes mellitus with hyperglycemia; R11.14 Bilious vomiting; K21.9 Gastro-esophageal reflux disease without esophagitis; Z90.49 Acquired absence of other specified parts of digestive tract; Z79.82 Long term (current) use of aspirin; Z79.84 Long term (current) use of oral hypoglycemic drugs; Z86.010 Personal history of colon polyps; Z87.891 Personal history of nicotine dependence
CPT/HCPCS: 36415; 36416; 51702; 76770; 78452; 80048; 81001; 82378; 82962; 85025; 87086; 88309; 93017; 94664; 96372; 97116; 97161; A9500; C9290; J1100; J1644; J1815; J1956; J2405; J2704; J2710; J2785; J3010; J3490; J7030; S0030

== ENCOUNTER 2022-02-27 14:08 | Outpatient (CLI) | payer MEDICARE, MEDICAID, SELFPAY ==
[2022-02-27 16:28] LABS: Basophils # 0.1 10^3/uL (0.0-0.1); Basophils % 0.6 %; Eosinophils # 0.3 10^3/uL (0.0-0.8); Eosinophils % 3.2 %; Hematocrit 35.2 % (42.0-52.0); Hemoglobin 11.6 g/dL (11.7-16.6); Lymphocytes # 2.1 10^3/uL (0.8-4.8); Lymphocytes % 26.9 %; Mean Corpuscular Hemoglobin 27.3 pg (28.0-34.0); Mean Corpuscular Volume 82.8 fl (80-94); Mean Platelet Volume 9.1 fL (7.4-10.4); Monocytes # 0.6 10^3/uL (0.2-0.9); Monocytes % 7.2 %; Neutrophils % 61.5 %; Nucleated Red Blood Cells % 0 %; Platelet Count 411 10^3/cmm (130-400); Red Blood Count 4.25 10^6/uL (4.1-5.3); Red Cell Distribution Width 20.8 % (12.1-15.1); White Blood Count 7.8 10^3/uL (4.0-10.0)
[2022-02-27 17:02] LABS: Carcinoembryonic Antigen 3.2 ng/mL (0.0-4.7)
[2022-02-27 17:13] LABS: Alanine Aminotransferase 26 U/L (0-41); Albumin Level 4.5 g/dL (3.5-5.2); Alkaline Phosphatase 57 IU/L (40-130); Anion Gap 15.2 (5-19); Aspartate Amino Transferase 19 U/L (0-40); Blood Urea Nitrogen 23 mg/dL (8-23); Calcium 9.7 mg/dL (8.5-10.5); Carbon Dioxide 25 mmol/L (22-29); Chloride 102 mmol/L (98-107); Glucose 127 mg/dL (65-115); Osmolality Calculated 291 mOsm/kg (285-295); Potassium 4.2 mmol/L (3.5-5.1); Sodium 138 mmol/L (136-145); Total Bilirubin 0.3 mg/dL (0.15-1.2); Total Protein 7.5 g/dL (6.6-8.7)
--- NOTE | 2022-03-04 07:57 | ONC CON_ITS ---
Dr. Vernon New Patient Note Patient: Wilfredo Pena Unit #: [id number]: [id number] Dicatated By: Cherie Vernon M.D.Date of Visit: Feb 27, 2022 Onc MED New Patient/Consult Referring Physician: Dr. DAX EDWARDS M.D. History of Present Illness: Mr. Wilfredo Pena, is a 76-year-old gentleman with a history of progressive fatigue and weakness, as per patient went to see his PMD after long time and found to have iron deficiency anemia, patient was started on oral iron and his stool were positive for Hemoccult and he was referred to Dr. Edwards for EGD and colonoscopy ,which was done on January 30, 2022, EGD exam was unremarkable except multiple gastric erosions and colonoscopy showed in the distal ascending colon, malignant appearing mass, biopsy was obtained, and transverse colon 5 mm sessile polyp x2 were removed. Subsequently, underwent CT scan of abdomen pelvis from February 01, 2022 which shows asymmetric circumferential mass in the ascending colon, a few round, mildly vascular lymph nodes in the right lower quadrant adjacent to the ascending colon mass. Indeterminate 4 mm low-attenuation lesion in the left lobe of the liver. Early metastatic disease versus cyst, patient underwent laparoscopic right hemicolectomy on February 05, 2022 and final pathology report showed moderately differentiated adenocarcinoma, 6.7 cm in size, tumor invades through muscularis propria into pericolorectal tissue, no macroscopic tumor perforation. Lymphovascular invasion identified, and large vessel, intramural as well as extramural. Perineural invasion was not determined. T3, and 11 out of 37 lymph nodes shows metastatic disease, N2, pathological stage IIIb, MSI/MMR intact, As far as surgical operative note, there is no evidence of liver mets Patient is healing well from laparoscopic laparotomy, past medical history significant for COPD, longstanding history of smoking, over 50 years, quit 4 years ago. Diabetes, hypertension Patient denies any fever chills, denies any abdominal pain denies any nausea or vomiting denies any diarrhea or constipation, denies any jaundice. Past Medical History: Mr. Resendez medical history consists of chronic obstructive pulmonary disease, hypertension, and type II diabetes. Past Surgical History: Mr. Resendez surgical/procedural history consists of cholecystectomy, hernia repair, right hemicolectomy with ileocolic anastomosis in 2021, and colonoscopy in 2021. Medications: amLODIPine Besylate 1 Tablet (of 10 mg) Oral daily, Aspirin 81 1 Tablet (of 81 mg) Tablet, enteric coated Oral daily, Carvedilol 0.5 Tablet Oral ac pm, Carvedilol 1 Tablet Oral every am, hydroCHLOROthiazide (12.5 mg) Tablet Oral Take as Directed, Losartan Potassium 1 Tablet (of 100 mg) Oral daily, metFORMIN HCl 1 Tablet (of 500 mg) Oral b.i.d., Pantoprazole Sodium 1 Tablet (of 40 mg) Tablet, enteric coated Oral daily, Sennosides-Docusate Sodium (8.6-50 mg) Capsule Oral Take as Directed Allergies: Penicillins and Sulfa Antibiotics. Social History: Mr. Pena is . Mr. Pena no longer smokes. He has no history of drinking. Family History: Mr. Pena's father at age 78: myocardial infarction. Review Of Symptoms: Review of Systems is not available for this patient. Vital Signs: Performed on Feb 27, 2022 16:03: 0, 0, 27.94, 2.20 sq.m, 73 in, 96 %, 57 /min (LOW), 16 /min, 133/59 mm(hg), 98.6 F, and 211.8 lbs (HIGH). Performance Status: 0 - Fully active, able to carry on all predisease activities without restrictions. (ECOG) Physical Examination: ENMT - No mouth sores, no thrush, no jaundice, Respiratory - On limited exam,Lungs are clear to auscultation, Cardiovascular - Regular rate and rhythm of heart, Abdomen - Soft, bowel sounds present, Well-healed surgical scar, Extremities - No visible edema. Lab/Imaging: Most recent lab results are not available for this patient. Impression: Stage IIIb, T3, N2, MX, moderately differentiated colon cancer involving the ascending colon per laparoscopic right hemicolectomy, final pathology report showed 6.7 cm invasive tumor invading through muscularis propria into pericolorectal tissue, with lymphovascular invasion present. Clear surgical margins. 11 out of 37 lymph node positive for metastatic disease. MSI/MMR intact CT scan of abdomen pelvis done on February 01, 2022 showed indeterminate 4 mm low-attenuation lesion in the left lobe of liver, early metastatic site versus cyst but as per laparoscopic op note, there was no evidence of liver mets COPD Former smoker Diabetes Hypertension Plan: Discussed with patient regarding his disease status and treatment options, patient recently underwent laparoscopic right hemicolectomy which confirmed stage IIIb colon cancer with 11 out of 37 lymph nodes positive for metastatic disease making it high risk stage III disease, as per NCCN guidelines, patient is a candidate for adjuvant chemotherapy with FOLFOX every 2 weeks x12. All the side effect, possible benefits associated with chemotherapy including but not limited to bone marrow suppression, nausea vomiting, diarrhea, jaundice, skin rash, hand-foot syndrome, hair loss, peripheral neuropathy especially with oxaliplatin were mentioned, further teaching will be done by chemotherapy nurse, will obtain approval from his insurance prior to treatment and we will request Dr. Edwards to place Port-A-Cath to facilitate adjuvant chemotherapy. As far as history of iron deficiency anemia is concerned, we will check a CBC CMP and also check CEA as presurgery CT scan of abdomen pelvis done on February 01, 2022 showed 4 mm lesion in left lobe of the liver, but not observed during surgery., If CEA is elevated, will consider CT PET scan otherwise proceed with adjuvant therapy with FOLFOX. The patient has persistent anemia, then will advise him to continue with oral iron as per patient he is not taking his oral iron supplement anymore Signed By: Cherie Vernon M.D. <<Signature on File>>
== END 2022-02-27 14:09 | disposition home or self-care (01) ==
LOC: ONCMED 14:16
PROVIDERS: PCP Nurse Practitioner Family; Visit Provider Internal Medicine Hematology & Oncology
DX: C18.2 Malignant neoplasm of ascending colon (principal); I50.9 Heart failure, unspecified; J44.9 Chronic obstructive pulmonary disease, unspecified; E11.9 Type 2 diabetes mellitus without complications; I10 Essential (primary) hypertension; Z79.899 Other long term (current) drug therapy; Z87.891 Personal history of nicotine dependence
CPT/HCPCS: 36415; 80053; 82378; 85025; 99205

== ENCOUNTER → 2022-03-08 09:33 | Outpatient (BNVA) | payer MEDICARE, MEDICAID, SELFPAY | PROVIDERS: PCP Nurse Practitioner Family; Visit Provider Surgery | DX: C18.2 Malignant neoplasm of ascending colon (principal) | CPT/HCPCS: 99214 ==

== ENCOUNTER 2022-04-08 08:10 | Day surgery (SDC) | payer MEDICARE, MEDICAID, SELFPAY ==
[2022-04-05 10:28] VITALS: BMI 29.7
--- NOTE | 2022-04-08 | SCC_ITS ---
Procedure done: 1. Placement of PowerPort in the left subclavian vein 200.5 seconds of fluoroscopic guidance, for a cumulative dose of 29.75 mGy, was provided to Dr. Edwards by the radiology department. C-arm images of the chest were saved for the patient's permanent record. [facility]
[2022-04-08 08:29] VITALS: BP 161/81; PULSE 65; RESP 17; TEMP 36.4; O2SAT 95
--- NOTE | 2022-04-08 08:41 | SC_ITS ---
WS: [id number] C-ARM RADIOGRAPHS CHEST; 3 IMAGES HISTORY: Placement of PowerPort in the left subclavian vein COMPARISON: None available. Intraoperative imaging during power port placement through the LEFT subclavian vein. Quality of the i maging is suboptimal. Very difficult visualization of the Mediport. Both the distal extent and the in sertion site cannot be completely confirmed on this imaging. SC/C-arm FL for CVA [id number] IMPRESSION: Intraoperative imaging during LEFT subclavian Mediport placement.
--- NOTE | 2022-04-08 08:52 | W.PM.OPSFHP ---
Same Day Surgery H&P Indication for Procedure/HPI DATE OF PROCEDURE: April 08, 2022 CHIEF COMPLAINT/INDICATIONFOR SURGICAL PROCEDURE: Port placement PREOP DIAGNOSIS: colon ca PLANNED PROCEDURE: Operation Date: 04/08/22 10:10 Proposed Procedures p Portacath Placement 73660/c18.2(Not Applicable) - Saeed Edwards MD Medications/Allergies* Home Medications Medication Instructions Recorded Confirmed Type aspirin 81 mg tablet,delayed 81 mg PO DAILY 01/25/20 04/08/22 History release (Adult Low Dose Aspirin) albuterol sulfate 90 mcg/actuation 2 puff INHALATION Q6H PRN 01/28/22 04/08/22 History aerosol inhaler metformin 500 mg tablet 500 mg PO BID 02/06/22 04/08/22 History amlodipine 10 mg tablet 10 mg PO DAILY 04/05/22 04/08/22 History carvedilol 12.5 mg tablet 12.5 mg PO DAILY 04/05/22 04/08/22 History Allergies/Adverse Reactions Allergy/AdvReac Type Severity Reaction Status Date / Time Penicillins Allergy Unknown Verified 04/08/22 08:30 Sulfa (Sulfonamide Allergy Unknown Verified 04/08/22 08:30 Antibiotics) Pertinent History/Comorbid Conditions* Medical History (Updated 02/12/22 @ 00:00 by ) Cancer of ascending colon COPD (chronic obstructive pulmonary disease) Diabetes Hypertension Surgical History (Updated 02/06/22 @ 12:38 by Saeed Edwards MD) H/O esophagogastroduodenoscopy (01/30/22) gastritis and esophagitis History of cholecystectomy S/P right hemicolectomy (02/05/22) Status post colonoscopy with polypectomy (01/30/22) ascending colon mass, transverse colon polyps, diverticulosis Status post right inguinal hernia repair Family History (Updated 01/14/20 @ 08:35 by Missy Guerin RN) CAD (coronary artery disease) Denies family history of Anesthesia complication Bleeding disorder Social History Smoking and tobacco status: former smoker Quit status (tobacco): has quit using tobacco Year quit tobacco: 2-3 years ago Second hand smoke exposure: No Alcohol intake: never Lives independently: Yes Household members: none Housing: House Marital status: Current occupational status: retired History of recent travel: No Current gender identity: Male Pertinent Exam Findings alert, oriented x 3 and regular rate & rhythm Recommendations Surgery/Procedure today Coding Level of Care Code Acute 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
[2022-04-08] MEDS: vancomycin 1,500 MG/300 ML PIGGYBACK 200 MG IV (09:09)
[2022-04-08] MEDS: sodium chloride 0.9% 1,000 ML 30 ML IV (09:09)
[2022-04-08 09:37] LABS: Anion Gap 15.3 (5-19); Blood Urea Nitrogen 15 mg/dL (8-23); Calcium 9.5 mg/dL (8.5-10.5); Carbon Dioxide 27 mmol/L (22-29); Chloride 100 mmol/L (98-107); Glucose 175 mg/dL (65-115); Osmolality Calculated 291 mOsm/kg (285-295); Potassium 4.3 mmol/L (3.5-5.1); Sodium 138 mmol/L (136-145)
[2022-04-08] MEDS: heparin, porcine 1,000 unit/mL INJ 10 mL 10000 UNIT IRRIGATION (09:57)
[2022-04-08] MEDS: lidocaine 2% INJ 20 mL INJECTION (09:58)
[2022-04-08] MEDS: iohexol 300 mg/mL 50 mL Btl (OR ONLY) XX (10:07)
[2022-04-08 10:27] VITALS: BP 167/90; PULSE 60; RESP 16; TEMP 36.3; O2SAT 98
[2022-04-08 10:32] VITALS: BP 148/99; PULSE 59; RESP 16; O2SAT 95
[2022-04-08 10:37] VITALS: BP 179/94; PULSE 62; RESP 18; TEMP 36.3; O2SAT 96
--- NOTE | 2022-04-08 10:39 | ANES.PREANE2 ---
Pre-Anesthetic Assessment Height/Weight: Height 1.85 m Weight 102.058 kg Temp Pulse Resp BP Pulse Ox 97.4 F L 62 18 179/94 96 04/08/22 10:37 04/08/22 10:37 04/08/22 10:37 04/08/22 10:37 04/08/22 10:37 Preop Diagnosis: colon ca Operation Date: 04/08/22 10:10 Proposed Procedures p Portacath Placement 52011/c18.2(Not Applicable) - Saeed Edwards MD Familial anesthetic complications: none Was Beta Alok taken within 24 hours: Yes Was Clonidine taken within 24 hours: N/A Last intake: Intake Last Liquid Date 04/07/22 Last Liquid Time 22:00 Last Solid Date 04/07/22 Last Solid Time 21:00 Social No alcohol and No tobacco (h/o smoking) Exam alert, oriented x 3, clear to auscultation bilaterally and regular rate & rhythm Airway Submandibular: within normal limits Cervical ROM: within normal limits Mallampati: Class II Dentition: false Pulmonary Chronic Obstructive Pulmonary Disease CV/HEM Hypertension GI Gastroesophageal Reflux Disease Metabolic Diabetes Mellitus and Morbid Obesity Anesthetic Plan ASA status: 3 Anesthesia: MAC Medications/Allergies Home Medications Medication Instructions Recorded Confirmed Last Taken Type aspirin 81 mg tablet,delayed 81 mg PO DAILY 01/25/20 04/08/22 04/05/22 History release (Adult Low Dose Aspirin) losartan 100 mg tablet 100 mg PO DAILY #90 tab 09/10/21 04/08/22 04/06/22 Rx hydrochlorothiazide 12.5 mg tablet 12.5 mg PO .As directed #180 tab 12/12/21 04/08/22 04/07/22 10:00 Rx blood sugar diagnostic (OneTouch #100 ea 01/09/22 03/08/22 Unknown Rx Verio test strips) lancets 33 gauge (OneTouch Delica #100 each 01/09/22 03/08/22 Unknown Rx Lancets) umeclidinium 62.5 mcg/actuation 1 inh INHALATION DAILY #30 ea 01/09/22 04/08/22 04/07/22 13:00 Rx blister powder for inhalation (Incruse Ellipta) ferrous sulfate 325 mg (65 mg 325 mg PO TID #90 tab 01/17/22 04/08/22 04/07/22 08:00 Rx iron) tablet (Feosol) albuterol sulfate 90 mcg/actuation 2 puff INHALATION Q6H PRN 01/28/22 04/08/22 04/08/22 06:00 History aerosol inhaler metformin 500 mg tablet 500 mg PO BID 02/06/22 04/08/22 04/07/22 08:00 History sennosides 8.6 mg-docusate sodium 1 tab-cap PO BID #30 tab 02/10/22 04/08/22 04/07/22 08:00 Rx 50 mg tablet (Senna with Docusate Sodium) pantoprazole 40 mg tablet,delayed 40 mg PO DAILY 28 Days #30 tab 03/08/22 04/08/22 04/08/22 06:00 Rx release (Protonix) amlodipine 10 mg tablet 10 mg PO DAILY 04/05/22 04/08/22 04/07/22 08:00 History carvedilol 12.5 mg tablet 12.5 mg PO DAILY 04/05/22 04/08/22 04/08/22 06:00 History Allergies Allergy/AdvReac Type Severity Reaction Status Date / Time Penicillins Allergy Unknown Verified 04/08/22 08:30 Sulfa (Sulfonamide Allergy Unknown Verified 04/08/22 08:30 Antibiotics) Current Medications Generic Name Dose Route Start Last Admin Trade Name Freq PRN Reason Stop Dose Admin Sodium Chloride 1,000 mls @ 30 mls/hr 04/08/22 08:30 04/08/22 09:09 Sodium Chloride 0.9% IV 04/09/22 08:29 30 mls/hr .Q24H MEGHA Administration PFSH Anesthesia Medical History Cancer of ascending colon COPD (chronic obstructive pulmonary disease) Diabetes Hypertension Surgical History H/O esophagogastroduodenoscopy (01/30/22) gastritis and esophagitis History of cholecystectomy S/P right hemicolectomy (02/05/22) Status post colonoscopy with polypectomy (01/30/22) ascending colon mass, transverse colon polyps, diverticulosis Status post right inguinal hernia repair Family History Other CAD (coronary artery disease) Denies family history of Anesthesia complication Bleeding disorder Social History Smoking and tobacco status: former smoker Quit status (tobacco): has quit using tobacco Year quit tobacco: 2-3 years ago Second hand smoke exposure: No Alcohol intake: never Lives independently: Yes Household members: none Housing: House Marital status: Current occupational status: retired History of recent travel: No Current gender identity: Male Data Anesthesia : 04/08/22 08:48 BMP 04/08/22 08:48 Sodium 138 Potassium 4.3 Chloride 100 Carbon Dioxide 27 BUN 15 Creatinine 1.3 H Glucose 175 H Calcium 9.5 Cardiac Studies: Sestamibi Stress Test (Cardiology) 02/04/22
[2022-04-08 10:40] VITALS: BP 165/91; PULSE 57; RESP 17; TEMP 36.3; O2SAT 96
--- NOTE | 2022-04-08 10:44 | P.OP_ITS ---
Operative Report Date of procedure: April 08, 2022 Pre-op diagnosis: Stage III Colon cancer Post-op diagnosis: same Procedure done: 1. Placement of PowerPort in the left subclavian vein 2. Fluoroscopic guidance and interpretation for placement of catheter Pathology: none sent Surgeon: Saeed Edwards Anesthesia: MAC Condition: stable Disposition: PACU Procedure: The patient was taken to the Operating Room and the chest and neck bilaterally w ere prepped and draped in a sterile manner after the antibiotic had been administered and shoulder rolls had been placed. A total of 10 mL of 1% lidocaine with 0.5% Marcaine was infiltrated under the clavicle on the left side at the site of the planned entry into the subclavian vein. An introducer needle was then used to access the subclavian vein under the clavicle and after withdrawing blood syringe was removed and a guidewire passed under fluoroscopy into the superior vena cava. The site of the planned port was then marked on the chest and a 15 blade was used to make a 3 cm skin incision this was extended into the subcutaneous tissue using electrocautery and a subcutaneous pocket over the pectoralis fascia was created 2-0 Vicryl suture was used to suture the port to the pectoral fascia in the pocket on 3 sides. The catheter, after having been flushed with hep saline, was attached to the tunneler and a tunnel created between the port site and the subclavian vein entry site. Under fluoroscopy the dilator sheath was passed over the guidewire into the proximal superior vena cava. The inner dilator was removed and the sheath left behind and~ the catheter was introduced through the peel-away sheath with the tip in the superior vena cava and the peel-away sheath was removed. The tip of the catheter could not be visualized due to the poor quality of the images and therefore 10 cc of Omnipaque mixed with saline was injected to confirm the tip in the distal SVC. The proximal end of the catheter was cut to the right size and was attached to the port. Using a Huang needle the port was accessed, it withdrew blood easily and flushed easily. A final 5cc of heparin was used to flush the PowerPort. The subcutaneous tissue was approximated using interrupted 3-0 Vicryl sutures and the skin at the introducer site and the port site was closed using subcuticular running 4-0 Monocryl sutures. Surgical glue was applied and the patient was stable throughout the procedure. Fluoroscopic guidance and interpretation was performed for introduction of the guidewire in the left subclavian vein, passage of dilator and placement of catheter tip in the distal superior vena cava.
[2022-04-08 11:20] VITALS: BP 147/115; PULSE 60; RESP 18; TEMP 36.3; O2SAT 95
[2022-04-08 11:37] LABS: Glucose Point of Care 157 mg/dL (70-110)
--- NOTE | 2022-04-08 13:34 | ANE.PACU2 ---
Inpatient post-anesthesia follow up: Airway intact: Yes Vital signs: Temperature 97.4 F Pulse Rate 60 Respiratory Rate 18 Blood Pressure 147/115 Pulse Oximetry 95 Oxygen Delivery Me thod Room Air Oxygen Flow Rate Fraction of Inspir ed Oxygen Hydration adequate: Yes Nausea and vomiting: No Pain level: 1 Mental status: Baseline
== END 2022-04-08 11:21 | disposition home or self-care (01) ==
PROVIDERS: Anesthesiology; PCP Nurse Practitioner Family; Visit Provider Surgery
PROC: (CPT 36561; principal; 2022-04-08 10:10)
DX: C18.2 Malignant neoplasm of ascending colon (principal); J44.9 Chronic obstructive pulmonary disease, unspecified; I10 Essential (primary) hypertension; K21.9 Gastro-esophageal reflux disease without esophagitis; E11.9 Type 2 diabetes mellitus without complications; E66.01 Morbid (severe) obesity due to excess calories; Z68.29 Body mass index [BMI] 29.0-29.9, adult; Z79.82 Long term (current) use of aspirin; Z79.84 Long term (current) use of oral hypoglycemic drugs; Z82.49 Family history of ischemic heart disease and other diseases of the circulatory system; Z87.891 Personal history of nicotine dependence
CPT/HCPCS: 36561; 36416; 76000; 77001; 80048; 82962; C1788; J1644; J2704; J3010; J3370; J3490; J7030

== ENCOUNTER → 2022-04-10 09:54 | Outpatient (BNVA) | payer MEDICARE, MEDICAID, SELFPAY | PROVIDERS: PCP Nurse Practitioner Family; Visit Provider Internal Medicine Cardiovascular Disease | DX: I10 Essential (primary) hypertension (principal); R06.00 Dyspnea, unspecified; F17.200 Nicotine dependence, unspecified, uncomplicated; C18.2 Malignant neoplasm of ascending colon | CPT/HCPCS: 99214 ==

== ENCOUNTER 2022-04-25 14:30 | Oncology outpatient (recurring) (ONCR) | payer MEDICARE, MEDICAID, SELFPAY ==
[2022-04-17 08:02] VITALS: BMI 29.7
[2022-04-17 08:34] LABS: Basophils # 0.1 10^3/uL (0.0-0.1); Basophils % 0.8 %; Eosinophils # 0.2 10^3/uL (0.0-0.8); Eosinophils % 3.2 %; Hematocrit 42.7 % (42.0-52.0); Hemoglobin 13.7 g/dL (11.7-16.6); Lymphocytes # 1.8 10^3/uL (0.8-4.8); Lymphocytes % 24.5 %; Mean Corpuscular HGB Conc 32.1 g/dL (30.0-36.0); Mean Corpuscular Hemoglobin 26.7 pg (28.0-34.0); Mean Corpuscular Volume 83.2 fl (80-94); Monocytes # 0.6 10^3/uL (0.2-0.9); Monocytes % 7.7 %; Neutrophils # 4.71 10^3/uL (1.8-7.7); Neutrophils % 63.4 %; Nucleated Red Blood Cells % 0 %; Platelet Count 254 10^3/cmm (130-400); Red Blood Count 5.13 10^6/uL (4.1-5.3); Red Cell Distribution Width 17.4 % (12.1-15.1); White Blood Count 7.4 10^3/uL (4.0-10.0)
[2022-04-17 08:52] LABS: Alanine Aminotransferase 21 U/L (0-41); Albumin Level 4.3 g/dL (3.5-5.2); Alkaline Phosphatase 57 IU/L (40-130); Anion Gap 14.8 (5-19); Aspartate Amino Transferase 14 U/L (0-40); Blood Urea Nitrogen 15 mg/dL (8-23); Calcium 8.2 mg/dL (8.5-10.5); Carbon Dioxide 25 mmol/L (22-29); Chloride 100 mmol/L (98-107); Globulin 2.6 g/dL (1.3-4.6); Glucose 198 mg/dL (65-115); Osmolality Calculated 288 mOsm/kg (285-295); Potassium 3.8 mmol/L (3.5-5.1); Sodium 136 mmol/L (136-145); Total Bilirubin 0.4 mg/dL (0.15-1.2); Total Protein 6.9 g/dL (6.6-8.7)
[2022-04-17] MEDS: dextrose 5% 250 ML 75 ML IV (12:05)
[2022-04-17] MEDS: palonosetron 0.25 MG in sodium chloride 0.9% 50 ML 187 MG IV (12:05)
[2022-04-17] MEDS: oxaliplatin 192 MG in dextrose 5% 250 ML 72.1 MG IV (12:47)
[2022-04-17] MEDS: leucovorin 900 MG in dextrose 5% 250 ML 85 MG IV (12:47)
[2022-04-17] MEDS: fluorouraciL 5,400 MG, elastomeric pump 1 PUMP in sodium chloride 0.9% (100 ml) 122 ML IV (16:05)
[2022-04-17 16:19] VITALS: BP 172/75; PULSE 86; TEMP 37.1; O2SAT 94
[2022-04-25 14:58] LABS: Basophils % 0.6 %; Eosinophils # 0.3 10^3/uL (0.0-0.8); Eosinophils % 4.9 %; Hematocrit 36.8 % (42.0-52.0); Hemoglobin 13.7 g/dL (11.7-16.6); Lymphocytes # 2.1 10^3/uL (0.8-4.8); Lymphocytes % 29.6 %; Mean Corpuscular HGB Conc 37.2 g/dL (30.0-36.0); Mean Corpuscular Hemoglobin 31.8 pg (28.0-34.0); Mean Corpuscular Volume 85.4 fl (80-94); Mean Platelet Volume 8.9 fL (7.4-10.4); Monocytes # 0.5 10^3/uL (0.2-0.9); Monocytes % 7.4 %; Neutrophils # 3.95 10^3/uL (1.8-7.7); Neutrophils % 57.1 %; Nucleated Red Blood Cells % 0 %; Platelet Count 223 10^3/cmm (130-400); Red Blood Count 4.31 10^6/uL (4.1-5.3); Red Cell Distribution Width 18.8 % (12.1-15.1); White Blood Count 6.9 10^3/uL (4.0-10.0)
[2022-04-25 15:33] LABS: Alanine Aminotransferase 32 U/L (0-41); Albumin Level 4.4 g/dL (3.5-5.2); Alkaline Phosphatase 57 IU/L (40-130); Anion Gap 12.9 (5-19); Aspartate Amino Transferase 22 U/L (0-40); Blood Urea Nitrogen 20 mg/dL (8-23); Calcium 9.4 mg/dL (8.5-10.5); Carbon Dioxide 28 mmol/L (22-29); Chloride 97 mmol/L (98-107); Globulin 3.2 g/dL (1.3-4.6); Glucose 152 mg/dL (65-115); Osmolality Calculated 284 mOsm/kg (285-295); Potassium 3.9 mmol/L (3.5-5.1); Sodium 134 mmol/L (136-145); Total Bilirubin 0.4 mg/dL (0.15-1.2); Total Protein 7.6 g/dL (6.6-8.7)
== END 2022-04-30 23:59 | disposition home or self-care (01) ==
PROVIDERS: Internal Medicine Hematology & Oncology; PCP Nurse Practitioner Family; Visit Provider Nurse Practitioner Family
DX: C18.2 Malignant neoplasm of ascending colon; C77.8 Secondary and unspecified malignant neoplasm of lymph nodes of multiple regions; R53.82 Chronic fatigue, unspecified; R53.1 Weakness; D50.9 Iron deficiency anemia, unspecified; R19.7 Diarrhea, unspecified; N28.9 Disorder of kidney and ureter, unspecified; Z79.899 Other long term (current) drug therapy; Z87.891 Personal history of nicotine dependence; Z79.52 Long term (current) use of systemic steroids
CPT/HCPCS: 36591; 80053; 85025; 96367; 96368; 96413; 96415; 96416; 96523; 99214; 99215; 99999; J0640; J1100; J2469; J9190; J9263

== ENCOUNTER 2022-05-29 08:00 | Oncology outpatient (recurring) (ONCR) | payer MEDICARE, MEDICAID, SELFPAY ==
[2022-05-01 08:40] LABS: Basophils % 0.4 %; Eosinophils # 0.3 10^3/uL (0.0-0.8); Eosinophils % 4.4 %; Hematocrit 40.3 % (42.0-52.0); Hemoglobin 13.9 g/dL (11.7-16.6); Lymphocytes % 26.5 %; Mean Corpuscular HGB Conc 34.5 g/dL (30.0-36.0); Mean Corpuscular Hemoglobin 29.1 pg (28.0-34.0); Mean Corpuscular Volume 84.3 fl (80-94); Mean Platelet Volume 8.8 fL (7.4-10.4); Monocytes # 0.9 10^3/uL (0.2-0.9); Monocytes % 12.1 %; Neutrophils # 4.14 10^3/uL (1.8-7.7); Neutrophils % 56.3 %; Nucleated Red Blood Cells % 0 %; Platelet Count 211 10^3/cmm (130-400); Red Blood Count 4.78 10^6/uL (4.1-5.3); Red Cell Distribution Width 17.3 % (12.1-15.1); White Blood Count 7.4 10^3/uL (4.0-10.0)
[2022-05-01 08:50] LABS: Alanine Aminotransferase 31 U/L (0-41); Albumin Level 4.3 g/dL (3.5-5.2); Alkaline Phosphatase 59 IU/L (40-130); Anion Gap 15.8 (5-19); Aspartate Amino Transferase 21 U/L (0-40); Blood Urea Nitrogen 18 mg/dL (8-23); Carbon Dioxide 25 mmol/L (22-29); Chloride 97 mmol/L (98-107); Glucose 181 mg/dL (65-115); Osmolality Calculated 284 mOsm/kg (285-295); Potassium 3.8 mmol/L (3.5-5.1); Sodium 134 mmol/L (136-145); Total Bilirubin 0.5 mg/dL (0.15-1.2); Total Protein 7.3 g/dL (6.6-8.7)
[2022-05-01 09:30] VITALS: BMI 29.4
[2022-05-01] MEDS: dextrose 5% 250 ML 75 ML IV (10:37)
[2022-05-01] MEDS: palonosetron 0.25 MG in sodium chloride 0.9% 50 ML 187 MG IV (10:38)
[2022-05-01] MEDS: oxaliplatin 192 MG in dextrose 5% 250 ML 72.1 MG IV (11:34)
[2022-05-01] MEDS: leucovorin 900 MG in dextrose 5% 250 ML 85 MG IV (11:35)
[2022-05-01] MEDS: fluorouraciL 5,400 MG, elastomeric pump 1 PUMP in sodium chloride 0.9% (100 ml) 122 ML IV (14:47)
[2022-05-01 15:12] VITALS: BP 181/73; PULSE 67; TEMP 36.7; O2SAT 99
[2022-05-15 08:33] LABS: Basophils # 0.1 10^3/uL (0.0-0.1); Basophils % 0.8 %; Eosinophils # 0.2 10^3/uL (0.0-0.8); Eosinophils % 3.3 %; Hematocrit 39.7 % (42.0-52.0); Lymphocytes # 1.9 10^3/uL (0.8-4.8); Lymphocytes % 26.4 %; Mean Corpuscular HGB Conc 35.3 g/dL (30.0-36.0); Mean Corpuscular Hemoglobin 29.6 pg (28.0-34.0); Mean Corpuscular Volume 83.9 fl (80-94); Mean Platelet Volume 9.5 fL (7.4-10.4); Monocytes # 0.9 10^3/uL (0.2-0.9); Monocytes % 12.2 %; Neutrophils # 4.12 10^3/uL (1.8-7.7); Nucleated Red Blood Cells % 0 %; Platelet Count 152 10^3/cmm (130-400); Red Blood Count 4.73 10^6/uL (4.1-5.3); Red Cell Distribution Width 17.6 % (12.1-15.1); White Blood Count 7.2 10^3/uL (4.0-10.0)
[2022-05-15 08:52] LABS: Alanine Aminotransferase 56 U/L (0-41); Albumin Level 4.3 g/dL (3.5-5.2); Alkaline Phosphatase 62 IU/L (40-130); Anion Gap 13.2 (5-19); Aspartate Amino Transferase 41 U/L (0-40); Blood Urea Nitrogen 20 mg/dL (8-23); Calcium 9.1 mg/dL (8.5-10.5); Carbon Dioxide 27 mmol/L (22-29); Chloride 97 mmol/L (98-107); Globulin 3.3 g/dL (1.3-4.6); Glucose 196 mg/dL (65-115); Osmolality Calculated 284 mOsm/kg (285-295); Potassium 4.2 mmol/L (3.5-5.1); Sodium 133 mmol/L (136-145); Total Bilirubin 0.5 mg/dL (0.15-1.2); Total Protein 7.6 g/dL (6.6-8.7)
[2022-05-15] MEDS: dextrose 5% 250 ML 75 ML IV (10:32)
[2022-05-15] MEDS: palonosetron 0.25 MG in sodium chloride 0.9% 50 ML 187 MG IV (10:33)
[2022-05-15] MEDS: leucovorin 900 MG in dextrose 5% 250 ML 85 MG IV (11:30)
[2022-05-15] MEDS: oxaliplatin 192 MG in dextrose 5% 250 ML 72.1 MG IV (11:31)
[2022-05-15] MEDS: fluorouraciL 5,400 MG, elastomeric pump 1 PUMP in sodium chloride 0.9% (100 ml) 122 ML IV (15:13)
[2022-05-15 15:16] VITALS: BP 176/75; PULSE 90; TEMP 37; O2SAT 94
[2022-05-29 08:31] LABS: Basophils % 0.6 %; Eosinophils # 0.4 10^3/uL (0.0-0.8); Hematocrit 36.8 % (42.0-52.0); Hemoglobin 13.7 g/dL (11.7-16.6); Lymphocytes # 1.7 10^3/uL (0.8-4.8); Lymphocytes % 26.9 %; Mean Corpuscular HGB Conc 37.2 g/dL (30.0-36.0); Mean Corpuscular Hemoglobin 31.7 pg (28.0-34.0); Mean Corpuscular Volume 85.2 fl (80-94); Mean Platelet Volume 9.1 fL (7.4-10.4); Monocytes # 0.8 10^3/uL (0.2-0.9); Monocytes % 12.9 %; Neutrophils # 3.31 10^3/uL (1.8-7.7); Neutrophils % 53.4 %; Nucleated Red Blood Cells % 0 %; Platelet Count 115 10^3/cmm (130-400); Red Blood Count 4.32 10^6/uL (4.1-5.3); Red Cell Distribution Width 17.3 % (12.1-15.1); White Blood Count 6.2 10^3/uL (4.0-10.0)
[2022-05-29 09:14] LABS: Alanine Aminotransferase 45 U/L (0-41); Albumin Level 4.1 g/dL (3.5-5.2); Alkaline Phosphatase 67 IU/L (40-130); Aspartate Amino Transferase 40 U/L (0-40); Blood Urea Nitrogen 22 mg/dL (8-23); Calcium 9.2 mg/dL (8.5-10.5); Carbon Dioxide 24 mmol/L (22-29); Chloride 99 mmol/L (98-107); Globulin 3.2 g/dL (1.3-4.6); Glucose 210 mg/dL (65-115); Osmolality Calculated 290 mOsm/kg (285-295); Sodium 135 mmol/L (136-145); Total Bilirubin 0.8 mg/dL (0.15-1.2); Total Protein 7.3 g/dL (6.6-8.7)
[2022-05-29] MEDS: dextrose 5% 250 ML 75 ML IV (10:18)
[2022-05-29] MEDS: palonosetron 0.25 mg/5 mL SDV (10:19)
[2022-05-29] MEDS: leucovorin 900 MG in dextrose 5% 250 ML 85 MG IV (11:26)
[2022-05-29] MEDS: oxaliplatin 192 MG in dextrose 5% 250 ML 72.1 MG IV (11:26)
[2022-05-29] MEDS: fluorouraciL 5,400 MG, elastomeric pump 1 PUMP in sodium chloride 0.9% (100 ml) 122 ML IV (15:25)
[2022-05-29 15:37] VITALS: BP 166/82; PULSE 75; RESP 18; TEMP 36.8; O2SAT 97
== END 2022-05-30 23:59 | disposition home or self-care (01) ==
PROVIDERS: Internal Medicine Hematology & Oncology; PCP Nurse Practitioner Family; Visit Provider Nurse Practitioner Family
DX: Z51.11 Encounter for antineoplastic chemotherapy (principal); C18.2 Malignant neoplasm of ascending colon; C77.8 Secondary and unspecified malignant neoplasm of lymph nodes of multiple regions; D50.9 Iron deficiency anemia, unspecified; K92.1 Melena; E11.65 Type 2 diabetes mellitus with hyperglycemia; J44.9 Chronic obstructive pulmonary disease, unspecified; D69.6 Thrombocytopenia, unspecified; Z87.891 Personal history of nicotine dependence; Z79.84 Long term (current) use of oral hypoglycemic drugs; Z79.899 Other long term (current) drug therapy
CPT/HCPCS: 80053; 85025; 96367; 96368; 96413; 96415; 96416; 96523; 99215; J0640; J1100; J2469; J9190; J9263

== ENCOUNTER → 2022-06-12 07:39 | Outpatient (BNVA) | payer MEDICARE, MEDICAID, SELFPAY | PROVIDERS: PCP Nurse Practitioner Family; Visit Provider Nurse Practitioner Family | DX: C18.2 Malignant neoplasm of ascending colon (principal); C77.8 Secondary and unspecified malignant neoplasm of lymph nodes of multiple regions; E11.9 Type 2 diabetes mellitus without complications; Z79.4 Long term (current) use of insulin; Z86.010 Personal history of colon polyps; Z87.891 Personal history of nicotine dependence | CPT/HCPCS: 99214 ==

== ENCOUNTER → 2022-06-26 07:45 | Outpatient (BNVA) | payer MEDICARE, MEDICAID, SELFPAY | PROVIDERS: Visit Provider Internal Medicine Hematology & Oncology | DX: C18.2 Malignant neoplasm of ascending colon (principal); C77.8 Secondary and unspecified malignant neoplasm of lymph nodes of multiple regions; D50.9 Iron deficiency anemia, unspecified; J44.9 Chronic obstructive pulmonary disease, unspecified; N28.89 Other specified disorders of kidney and ureter; Z79.899 Other long term (current) drug therapy; Z87.891 Personal history of nicotine dependence | CPT/HCPCS: 99214; 99215 ==

== ENCOUNTER 2022-06-28 11:30 | Oncology outpatient (recurring) (ONCR) | payer MEDICARE, MEDICAID, SELFPAY ==
[2022-06-12 08:59] LABS: Alanine Aminotransferase 38 U/L (0-41); Albumin Level 4.1 g/dL (3.5-5.2); Alkaline Phosphatase 71 IU/L (40-130); Anion Gap 15.2 (5-19); Aspartate Amino Transferase 34 U/L (0-40); Blood Urea Nitrogen 16 mg/dL (8-23); Calcium 9.6 mg/dL (8.5-10.5); Carbon Dioxide 27 mmol/L (22-29); Chloride 96 mmol/L (98-107); Globulin 3.1 g/dL (1.3-4.6); Glucose 281 mg/dL (65-115); Osmolality Calculated 289 mOsm/kg (285-295); Potassium 4.2 mmol/L (3.5-5.1); Sodium 134 mmol/L (136-145); Total Bilirubin 0.8 mg/dL (0.15-1.2); Total Protein 7.2 g/dL (6.6-8.7)
[2022-06-12 09:01] LABS: Basophils % 0.6 %; Eosinophils # 0.4 10^3/uL (0.0-0.8); Eosinophils % 6.6 %; Hematocrit 41.5 % (42.0-52.0); Lymphocytes # 1.7 10^3/uL (0.8-4.8); Lymphocytes % 31.5 %; Mean Corpuscular HGB Conc 33.7 g/dL (30.0-36.0); Mean Corpuscular Hemoglobin 29.4 pg (28.0-34.0); Mean Corpuscular Volume 87.2 fl (80-94); Mean Platelet Volume 9.2 fL (7.4-10.4); Monocytes # 0.7 10^3/uL (0.2-0.9); Monocytes % 13.1 %; Neutrophils # 2.57 10^3/uL (1.8-7.7); Nucleated Red Blood Cells % 0 %; Platelet Count 92 10^3/cmm (130-400); Red Blood Count 4.76 10^6/uL (4.1-5.3); Red Cell Distribution Width 17.7 % (12.1-15.1); White Blood Count 5.3 10^3/uL (4.0-10.0)
[2022-06-12] MEDS: insulin lispro 100 unit/1 mL 10 UNIT SUBCUT (10:39)
[2022-06-12] MEDS: dextrose 5% 250 ML 100 ML IV (10:46)
[2022-06-12] MEDS: palonosetron 0.25 mg/5 mL SDV (10:47)
[2022-06-12] MEDS: leucovorin 710 MG in dextrose 5% 250 ML 80.25 MG IV (11:19)
[2022-06-12] MEDS: fluorouraciL 4,250 MG, elastomeric pump 1 PUMP in sodium chloride 0.9% (100 ml) 7 ML IV (14:50)
[2022-06-12 15:06] VITALS: BP 158/76; PULSE 72; RESP 16; TEMP 36.5; O2SAT 98
[2022-06-26 08:19] LABS: Basophils % 0.7 %; Eosinophils # 0.2 10^3/uL (0.0-0.8); Eosinophils % 2.8 %; Hematocrit 40.3 % (42.0-52.0); Hemoglobin 14.1 g/dL (11.7-16.6); Lymphocytes # 1.9 10^3/uL (0.8-4.8); Lymphocytes % 32.3 %; Mean Corpuscular Hemoglobin 31.5 pg (28.0-34.0); Mean Platelet Volume 9.6 fL (7.4-10.4); Monocytes # 0.8 10^3/uL (0.2-0.9); Monocytes % 14.3 %; Neutrophils # 2.85 10^3/uL (1.8-7.7); Neutrophils % 49.7 %; Nucleated Red Blood Cells % 0 %; Platelet Count 118 10^3/cmm (130-400); Red Blood Count 4.48 10^6/uL (4.1-5.3); Red Cell Distribution Width 17.5 % (12.1-15.1); White Blood Count 5.7 10^3/uL (4.0-10.0)
[2022-06-26 08:40] LABS: Alanine Aminotransferase 39 U/L (0-41); Alkaline Phosphatase 75 IU/L (40-130); Anion Gap 16.8 (5-19); Aspartate Amino Transferase 38 U/L (0-40); Blood Urea Nitrogen 21 mg/dL (8-23); Calcium 9.5 mg/dL (8.5-10.5); Carbon Dioxide 24 mmol/L (22-29); Chloride 98 mmol/L (98-107); Globulin 3.1 g/dL (1.3-4.6); Glucose 184 mg/dL (65-115); Osmolality Calculated 288 mOsm/kg (285-295); Potassium 3.8 mmol/L (3.5-5.1); Sodium 135 mmol/L (136-145); Total Bilirubin 0.6 mg/dL (0.15-1.2); Total Protein 7.1 g/dL (6.6-8.7)
[2022-06-26 08:41] LABS: Creatinine Clr Calc Pharmacy 51.6206
[2022-06-26] MEDS: dextrose 5% 250 ML 100 ML IV (10:27)
[2022-06-26] MEDS: palonosetron 0.25 mg/5 mL SDV (10:31)
[2022-06-26] MEDS: leucovorin 720 MG in dextrose 5% 250 ML 80.5 MG IV (10:52)
[2022-06-26] MEDS: oxaliplatin 100 MG, oxaliplatin 36 MG in dextrose 5% 250 ML 69.3 MG IV (10:52)
[2022-06-26] MEDS: fluorouraciL 4,350 MG, elastomeric pump 1 PUMP in sodium chloride 0.9% (100 ml) 5 ML IV (14:47)
[2022-06-26 14:59] VITALS: BP 149/70; PULSE 50; TEMP 36.9; O2SAT 97
== END 2022-06-30 23:59 | disposition home or self-care (01) ==
PROVIDERS: Internal Medicine Hematology & Oncology; PCP Nurse Practitioner Family; Visit Provider Nurse Practitioner Family
DX: Z53.9 Procedure and treatment not carried out, unspecified reason (principal); Z45.2 Encounter for adjustment and management of vascular access device
CPT/HCPCS: 80053; 85025; 96367; 96368; 96372; 96375; 96413; 96415; 96416; 96523; 99215; J0640; J1100; J1815; J2469; J9190; J9263

== ENCOUNTER 2022-07-12 11:11 | Emergency (ER) | payer MEDICARE, MEDICAID, SELFPAY ==
--- NOTE | 2022-07-12 11:12 | ECG_ITS ---
[facility] Test Date: 2022-07-12 Pat Name: Wilfredo Pena Department: Room: Gender: Male Rhit: : 1945 Requested By: Trinidad Crane Order Number: [id number] Eric MD: Nnamdi Goodwin M.D. Measurements Intervals [place] Rate: 46 P: 70 CO: 161 QRS: -61 QRSD: 116 T: 26 QT: 449 QTc: 393 Interpretive Statements SINUS BRADYCARDIA LEFT ANTERIOR FASCICULAR BLOCK [QRS AXIS <= -45, QR IN I, RS IN II] ANTEROSEPTAL MYOCARDIAL INFARCTION , PROBABLY RECENT [40+ ms Q WAVE IN V1-V4] ACUTE NH No previous ECG available for comparison Electronically Signed On 07-12-2022 18:23:32 CDT by Nnamdi Goodwin M.D. [id number]
[2022-07-12 11:18] VITALS: BP 155/67; PULSE 51; RESP 16; TEMP 36.3; O2SAT 97; BMI 27.1
[2022-07-12 11:33] VITALS: RESP 22; O2SAT 95
[2022-07-12 11:39] LABS: Basophils % 0.6 %; Eosinophils # 0.1 10^3/uL (0.0-0.8); Eosinophils % 1.1 %; Hematocrit 42.7 % (42.0-52.0); Hemoglobin 14.5 g/dL (11.7-16.6); Lymphocytes # 1.3 10^3/uL (0.8-4.8); Lymphocytes % 27.8 %; Mean Corpuscular Hemoglobin 32.8 pg (28.0-34.0); Mean Corpuscular Volume 96.6 fl (80-94); Mean Platelet Volume 10.4 fL (7.4-10.4); Monocytes # 0.4 10^3/uL (0.2-0.9); Monocytes % 8.6 %; Neutrophils # 2.88 10^3/uL (1.8-7.7); Neutrophils % 61.7 %; Nucleated Red Blood Cells % 0 %; Platelet Count 122 10^3/cmm (130-400); Red Blood Count 4.42 10^6/uL (4.1-5.3); Red Cell Distribution Width 17.5 % (12.1-15.1); White Blood Count 4.7 10^3/uL (4.0-10.0)
[2022-07-12 11:45] VITALS: BP 130/59; PULSE 51; RESP 17; O2SAT 96
--- NOTE | 2022-07-12 11:52 | W.ED.ARRPALP ---
HPI - Arrhythmia/Palpitations General: Chief Complaint: Arrhythmia/Palpitations Stated Complaint: came from chemo; heart rate irr Time Seen by Provider: 07/12/22 11:28 Source: patient Mode of arrival: ambulatory Limitations: no limitations History of Present Illness: 77-year-old male who states that he is on chemo he states he is over receiving his chemo and oncology and they noticed his heart rate was in the 40s and 50s that sent him here for further evaluation he states that he is felt completely fine he has not had any chest pain or syncope or noticed that his his heart rate was low. He is on carvedilol. He denies any fevers she denies any worsening proving factors. Associated symptoms: Deny nausea or vomiting Review of Systems Const: Denies: fever(s), chills, body aches or change in appetite Eyes: Denies: blurry vision or eye discomfort ENMT: Denies: throat pain or dental pain Card: Denies: chest pain Resp: Denies: dyspnea GI: Denies: abdominal pain, nausea, vomiting or diarrhea : Denies: dysuria Musc: Denies: neck pain or back pain Skin/Breast: Denies: rash Neuro: Denies: headache(s) Psych: Denies: depression Juan Antonio/Lymph: Denies: easy bruising All/Imm: Denies: urticaria PFSH ED PFSH: Medical History Cancer of ascending colon COPD (chronic obstructive pulmonary disease) Diabetes Hypertension Surgical History H/O esophagogastroduodenoscopy (01/30/22) gastritis and esophagitis History of cholecystectomy Port-A-Cath in place (04/08/22) S/P right hemicolectomy (02/05/22) Status post colonoscopy with polypectomy (01/30/22) ascending colon mass, transverse colon polyps, diverticulosis Status post right inguinal hernia repair Family History Mother Cancer Father CAD (coronary artery disease) Denies family history of Diabetes Clotting disorder Dementia Hyperlipidemia Psychiatric illness Chronic kidney disease (CKD) Suicide Anesthesia complication Bleeding disorder Lung disease Hypertension Stroke Social History Smoking and tobacco status: former smoker Quit status (tobacco): has quit using tobacco Year quit tobacco: 2-3 years ago Second hand smoke exposure: No Alcohol intake: never Lives independently: Yes Household members: none Housing: House Marital status: Current occupational status: retired History of recent travel: No Current gender identity: Male Physical Exam Const: COMMON NORMALS: no acute distress, patient oriented x3 and healthy appearing HENMT: COMMON NORMALS: normocephalic and atraumatic HEAD & SCALP: normocephalic and atraumatic Eye: COMMON NORMALS: Equal, round and reactive pupils present and EOMs intact bilaterally PUPIL: Yes Equal, round and reactive pupils present Neck/C-Spine: COMMON NORMALS: full ROM and supple Chest: COMMONS NORMALS: normal inspection of the chest and normal palpation of entire chest wall Resp: COMMON NORMALS: normal respiratory effort, No retractions, No use of accessory muscles and clear to auscultation bilaterally AUSCULTATION: clear to auscultation bilaterally Cardio: COMMON NORMALS: regular rhythm and No murmurs present (Cardio) RATE: bradycardic RHYTHM: regular rhythm GI: COMMON NORMALS: Normal to inspection, nondistended, normoactive bowel sounds present, Soft to palpation, non-tender and no masses PALPATION: Yes Soft to palpation Extremity: COMMON NORMALS: normal to inspection and full ROM Neuro: COMMON NORMALS: patient oriented x3, moves all extremities and no focal motor deficits Psych: COMMON NORMALS: mental status grossly normal, Normal thought process present and cooperative THOUGHT PROCESS: Normal thought process present Skin: COMMON NORMALS: no rashes or lesions noted and no wounds GENERAL SKIN EXAM: no rashes or lesions noted Course Vital Signs: Vital signs: Vital Signs Temperature 97.4 F L 07/12/22 11:18 Pulse Rate 49 L 07/12/22 12:11 Respiratory Rate 16 07/12/22 12:11 Blood Pressure 127/63 07/12/22 12:11 Pulse Oximetry 95 07/12/22 12:11 MDM - Arrhythmia/Palpitations Medical Decision Making Patient presents here with bradycardia and is asymptomatic. 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 Frost will decrease the dose to 6.25 twice daily he is to monitor his rate and blood pressure and follow-up with her he is return if worsening he understands agrees to plan. Lab Data : 07/12/22 11:30 07/12/22 11:30 Laboratory Results WBC 4.7 10^3/uL (4.0-10.0) 07/12/22 11:30 RBC 4.42 10^6/uL (4.1-5.3) 07/12/22 11:30 Hgb 14.5 g/dL (11.7-16.6) 07/12/22 11:30 Hct 42.7 % (42.0-52.0) 07/12/22 11:30 MCV 96.6 fl (80-94) H 07/12/22 11:30 MCH 32.8 pg (28.0-34.0) 07/12/22 11: MCHC 34.0 g/dL (30.0-36.0) 07/12/22 11:30 RDW 17.5 % (12.1-15.1) H 07/12/22 11:30 Plt Count 122 10^3/cmm (130-400) L 07/12/22 11:30 MPV 10.4 fL (7.4-10.4) 07/12/22 11:30 Neut % (Auto) 61.7 % 07/12/22 11:30 Lymph % (Auto) 27.8 % 07/12/22 11:30 [place] % (Auto) 8.6 % 07/12/22 11:30 Eos % (Auto) 1.1 % 07/12/22 11:30 Baso % (Auto) 0.6 % 07/12/22 11:30 Neut # (Auto) 2.88 10^3/uL (1.8-7.7) 07/12/22 11:30 Lymph # (Auto) 1.3 10^3/uL (0.8-4.8) 07/12/22 11:30 [place] # (Auto) 0.4 10^3/uL (0.2-0.9) 07/12/22 11:30 Eos # (Auto) 0.1 10^3/uL (0.0-0.8) 07/12/22 11:30 Baso # (Auto) 0.0 10^3/uL (0.0-0.1) 07/12/22 11:30 Nucleated RBC % (auto) 0 % 07/12/22 11:30 Nucleated RBCs # 0.0 /100WBC 07/12/22 11:30 Sodium 139 mmol/L (136-145) 07/12/22 11:30 Potassium 3.9 mmol/L (3.5-5.1) 07/12/22 11:30 Chloride 100 mmol/L (98-107) 07/12/22 11:30 Carbon Dioxide 26 mmol/L (22-29) 07/12/22 11:30 Anion Gap 16.9 (5-19) 07/12/22 11:30 BUN 24 mg/dL (8-23) H 07/12/22 11:30 Creatinine 1.6 mg/dL (0.7-1.2) H 07/12/22 11:30 GFR Calculation Not Reportable 07/12/22 11:30 Glucose 150 mg/dL (65-115) H 07/12/22 11:30 Calculated Osmolality 295 mOsm/kg (285-295) 07/12/22 11:30 Calcium 9.7 mg/dL (8.5-10.5) 07/12/22 11:30 Total Bilirubin 0.8 mg/dL (0.15-1.2) 07/12/22 11:30 AST 88 U/L (0-40) H 07/12/22 11:30 ALT 71 U/L (0-41) H 07/12/22 11:30 Alkaline Phosphatase 72 IU/L (40-130) 07/12/22 11:30 Troponin T Baseline Cancelled 07/12/22 11:30 Total Protein 7.1 g/dL (6.6-8.7) 07/12/22 11:30 Albumin 3.8 g/dL (3.5-5.2) 07/12/22 11:30 Globulin 3.3 g/dL (1.3-4.6) 07/12/22 11:30 Discharge Plan Discharge Patient Disposition: Home Clinical Impression: Bradycardia Condition: Stable Prescriptions: New carvedilol 6.25 mg tablet 6.25 mg PO BID Qty: 60 0RF Rx Instructions: must administer with a meal/food Discontinued carvedilol 12.5 mg tablet 18.75 mg PO DIRECTED Qty: 135 2RF Rx Instructions: 12.5mg in AM and 6.25mg in PM No Action (DME) lancets [OneTouch Delica Lancets] 33 gauge misc See Rx Instructions .ROUTE .MEDSUPPLY Qty: 100 4RF Rx Instructions: ONE DAILY (DME) OneTouch Verio test strips Strip See Rx Instructions .ROUTE .COMPLEX Qty: 100 4RF Dose Instruction: USE 1 STRIP TO CHECK GLUCOSE ONCE DAILY AND NEEDED Rx Instructions: USE 1 STRIP TO CHECK GLUCOSE ONCE DAILY AND NEEDED Incruse Ellipta 62.5 mcg/actuation blister with device 1 inh inhalation DAILY Qty: 30 5RF aspirin [Adult Low Dose Aspirin] 81 mg tablet,delayed release (DR/EC) 81 mg PO DAILY hydrochlorothiazide 12.5 mg tablet 12.5 mg PO .As directed Rx Instructions: Alternate 12.5mg (1 tab) every other day with 25 mg (2 tab) losartan 100 mg tablet 100 mg PO DAILY Qty: 90 3RF ferrous sulfate [Feosol] 325 mg (65 mg iron) tablet 325 mg PO TID Qty: 90 2RF Rx Instructions: take with food amlodipine 10 mg tablet 10 mg PO DAILY Qty: 90 2RF Protonix 40 mg tablet,delayed release (DR/EC) 40 mg PO DAILY 30 Days Qty: 30 3RF metformin 1,000 mg tablet See Rx Instructions .ROUTE .COMPLEX Qty: 60 2RF Dose Instruction: TAKE 1 TABLET BY MOUTH TWICE DAILY WITH MEALS Rx Instructions: TAKE 1 TABLET BY MOUTH TWICE DAILY WITH MEALS albuterol sulfate 90 mcg/actuation HFA aerosol inhaler 2 puff inhalation Q6H PRN (Reason: Shortness Of Breath) Compazine 10 mg Tablet 10 mg PO Q4H PRN (Reason: Mild Nausea) Qty: 30 3RF lorazepam 1 mg Tablet 0.5 - 1 mg PO Q6H PRN (Reason: Severe Nausea) Qty: 30 3RF Discharge Orders: Discharge ED (Routine); Ordered 07/12/22 Ordered By: Trinidad Crane Referrals: Amita Montgomery FNP [Primary Care Provider] - 1-3 days Lenora Moreira MD [Physician] - 1-3 days Discharge Diet: Advance as tolerated Discharge Activity: Resume usual activity Patient Instructions: Bradycardia (ED) Coding Level of Care Code ED Vault Person for Chg Fwely
[2022-07-12 12:00] VITALS: BP 127/63; PULSE 48; RESP 17; O2SAT 94
[2022-07-12 12:03] LABS: Alanine Aminotransferase 71 U/L (0-41); Albumin Level 3.8 g/dL (3.5-5.2); Alkaline Phosphatase 72 IU/L (40-130); Blood Urea Nitrogen 24 mg/dL (8-23); Calcium 9.7 mg/dL (8.5-10.5); Carbon Dioxide 26 mmol/L (22-29); Chloride 100 mmol/L (98-107); Globulin 3.3 g/dL (1.3-4.6); Glucose 150 mg/dL (65-115); Osmolality Calculated 295 mOsm/kg (285-295); Sodium 139 mmol/L (136-145); Total Bilirubin 0.8 mg/dL (0.15-1.2); Total Protein 7.1 g/dL (6.6-8.7)
[2022-07-12 12:11] VITALS: BP 127/63; PULSE 49; RESP 16; O2SAT 95
[2022-07-12 12:13] LABS: Anion Gap 16.9 (5-19); Aspartate Amino Transferase 88 U/L (0-40); Potassium 3.9 mmol/L (3.5-5.1)
--- NOTE | 2022-07-15 09:32 | DCPLANNER ---
Addendum entered by Eva Pierre 07/26/22 12:55: Patient had a follow up appointment scheduled for 07.19.22 with [facility] - patient did attend appointment. Addendum entered by Eva Pierre 07/18/22 14:12: Patient has a follow up appointment scheduled for Tuesday, July 19, 2022 at 9:30 with LIZA Palomares at [facility]. Clinic will call patient with appointment information. Original Note: manager contact had message to schedule a follow up appointment for patient with cardiology. manager contact sent patients information to the front staff at [facility]. Patients information will be printed and reviewed. Clinic will call patient with appointment information.
== END 2022-07-12 12:12 | disposition home or self-care (01) ==
PROVIDERS: Emergency Provider Emergency Medicine; PCP Nurse Practitioner Family
DX: R00.1 Bradycardia, unspecified (principal); Z79.82 Long term (current) use of aspirin; Z79.84 Long term (current) use of oral hypoglycemic drugs; Z87.891 Personal history of nicotine dependence; J44.9 Chronic obstructive pulmonary disease, unspecified; E11.9 Type 2 diabetes mellitus without complications; I10 Essential (primary) hypertension; Z85.038 Personal history of other malignant neoplasm of large intestine
CPT/HCPCS: 80053; 85025; 93005; 96523; 99285

== ENCOUNTER → 2022-07-19 11:05 | Outpatient (BNVA) | payer MEDICARE, MEDICAID, SELFPAY | PROVIDERS: PCP Nurse Practitioner Family; Visit Provider Nurse Practitioner Family | DX: R00.1 Bradycardia, unspecified (principal); I44.4 Left anterior fascicular block; R94.31 Abnormal electrocardiogram [ECG] [EKG] | CPT/HCPCS: 93005; 99213 ==

== ENCOUNTER 2022-07-26 11:00 | Oncology outpatient (recurring) (ONCR) | payer MEDICARE, MEDICAID, SELFPAY ==
[2022-07-10 08:27] LABS: Basophils % 0.7 %; Eosinophils # 0.2 10^3/uL (0.0-0.8); Eosinophils % 4.4 %; Hematocrit 37.7 % (42.0-52.0); Hemoglobin 13.7 g/dL (11.7-16.6); Lymphocytes # 1.4 10^3/uL (0.8-4.8); Lymphocytes % 33.1 %; Mean Corpuscular HGB Conc 36.3 g/dL (30.0-36.0); Mean Corpuscular Hemoglobin 34.3 pg (28.0-34.0); Mean Corpuscular Volume 94.3 fl (80-94); Mean Platelet Volume 10.2 fL (7.4-10.4); Monocytes # 0.6 10^3/uL (0.2-0.9); Neutrophils # 2.05 10^3/uL (1.8-7.7); Neutrophils % 47.8 %; Nucleated Red Blood Cells % 0 %; Platelet Count 100 10^3/cmm (130-400); Red Cell Distribution Width 17.9 % (12.1-15.1); White Blood Count 4.3 10^3/uL (4.0-10.0)
[2022-07-10 09:17] LABS: Alanine Aminotransferase 37 U/L (0-41); Albumin Level 3.9 g/dL (3.5-5.2); Alkaline Phosphatase 79 IU/L (40-130); Aspartate Amino Transferase 42 U/L (0-40); Blood Urea Nitrogen 24 mg/dL (8-23); Calcium 9.4 mg/dL (8.5-10.5); Carbon Dioxide 22 mmol/L (22-29); Chloride 101 mmol/L (98-107); Glucose 168 mg/dL (65-115); Osmolality Calculated 294 mOsm/kg (285-295); Sodium 138 mmol/L (136-145); Total Bilirubin 0.8 mg/dL (0.15-1.2); Total Protein 6.9 g/dL (6.6-8.7)
[2022-07-10] MEDS: sodium chloride 0.9% 500 ML 999 ML IV (10:26)
[2022-07-10] MEDS: dextrose 5% 250 ML 75 ML IV (11:06)
[2022-07-10] MEDS: palonosetron 0.25 MG in sodium chloride 0.9% 50 ML 187 MG IV (11:07)
[2022-07-10] MEDS: oxaliplatin 100 MG, oxaliplatin 36 MG in dextrose 5% 250 ML 69.3 MG IV (11:27)
[2022-07-10] MEDS: leucovorin 720 MG in dextrose 5% 250 ML 80.5 MG IV (11:27)
[2022-07-10 14:59] VITALS: BP 134/72; PULSE 16; RESP 63; TEMP 36.4; O2SAT 95
[2022-07-10] MEDS: fluorouraciL 4,350 MG, elastomeric pump 1 PUMP in sodium chloride 0.9% (100 ml) 5 ML IV (15:08)
[2022-07-12 11:42] VITALS: BP 119/65; PULSE 36; RESP 16; TEMP 36.4; O2SAT 97
[2022-07-24 08:26] LABS: Basophils % 0.8 %; Eosinophils # 0.3 10^3/uL (0.0-0.8); Eosinophils % 5.9 %; Hematocrit 37.9 % (42.0-52.0); Hemoglobin 13.7 g/dL (11.7-16.6); Lymphocytes # 1.7 10^3/uL (0.8-4.8); Mean Corpuscular HGB Conc 36.1 g/dL (30.0-36.0); Mean Corpuscular Hemoglobin 34.5 pg (28.0-34.0); Mean Corpuscular Volume 95.5 fl (80-94); Mean Platelet Volume 9.6 fL (7.4-10.4); Monocytes # 0.7 10^3/uL (0.2-0.9); Monocytes % 13.9 %; Neutrophils # 2.42 10^3/uL (1.8-7.7); Neutrophils % 46.2 %; Nucleated Red Blood Cells % 0 %; Platelet Count 106 10^3/cmm (130-400); Red Blood Count 3.97 10^6/uL (4.1-5.3); Red Cell Distribution Width 15.6 % (12.1-15.1); White Blood Count 5.2 10^3/uL (4.0-10.0)
[2022-07-24 08:51] LABS: Alanine Aminotransferase 34 U/L (0-41); Albumin Level 3.9 g/dL (3.5-5.2); Alkaline Phosphatase 89 U/L (40-130); Anion Gap 15.3 (5-19); Aspartate Amino Transferase 40 U/L (0-40); Blood Urea Nitrogen 13 mg/dL (8-23); Calcium 9.6 mg/dL (8.5-10.5); Carbon Dioxide 26 mmol/L (22-29); Chloride 99 mmol/L (98-107); Globulin 3.3 g/dL (1.3-4.6); Glucose 149 mg/dL (65-115); Osmolality Calculated 285 mOsm/kg (285-295); Potassium 4.3 mmol/L (3.5-5.1); Sodium 136 mmol/L (136-145); Total Bilirubin 0.8 mg/dL (0.15-1.2); Total Protein 7.2 g/dL (6.6-8.7)
[2022-07-24] MEDS: dextrose 5% 250 ML 100 ML IV (09:48)
[2022-07-24] MEDS: palonosetron 0.25 mg/5 mL SDV (09:49)
[2022-07-24] MEDS: oxaliplatin 100 MG, oxaliplatin 30 MG in dextrose 5% 250 ML 69 MG IV (10:39)
[2022-07-24] MEDS: leucovorin 690 MG in dextrose 5% 250 ML 79.75 MG IV (10:40)
[2022-07-24] MEDS: fluorouraciL 4,150 MG, elastomeric pump 1 PUMP in sodium chloride 0.9% (100 ml) 9 ML IV (14:20)
[2022-07-24 14:30] VITALS: BP 155/64; PULSE 80; TEMP 36.8; O2SAT 95
== END 2022-07-31 23:59 | disposition home or self-care (01) ==
PROVIDERS: Internal Medicine Hematology & Oncology; PCP Nurse Practitioner Family; Visit Provider Nurse Practitioner Family
DX: Z45.2 Encounter for adjustment and management of vascular access device (principal)
CPT/HCPCS: 36415; 80053; 85025; 96367; 96368; 96375; 96413; 96415; 96416; 96523; 99214; 99215; J0640; J1100; J2469; J7040; J9190; J9263

== ENCOUNTER 2022-08-23 11:00 | Oncology outpatient (recurring) (ONCR) | payer MEDICARE, MEDICAID, SELFPAY ==
[2022-08-07 09:00] LABS: Alanine Aminotransferase 30 U/L (0-41); Alkaline Phosphatase 87 U/L (40-130); Aspartate Amino Transferase 38 U/L (0-40); Blood Urea Nitrogen 18 mg/dL (8-23); Calcium 9.3 mg/dL (8.5-10.5); Carbon Dioxide 26 mmol/L (22-29); Chloride 101 mmol/L (98-107); Globulin 3.2 g/dL (1.3-4.6); Glucose 156 mg/dL (65-115); Osmolality Calculated 291 mOsm/kg (285-295); Sodium 138 mmol/L (136-145); Total Bilirubin 0.7 mg/dL (0.15-1.2); Total Protein 7.2 g/dL (6.6-8.7)
[2022-08-07 10:50] LABS: Basophils # 0.1 10^3/uL (0.0-0.1); Basophils % 0.9 %; Eosinophils # 0.2 10^3/uL (0.0-0.8); Eosinophils % 4.2 %; Hematocrit 42.7 % (42.0-52.0); Hemoglobin 14.3 g/dL (11.7-16.6); Lymphocytes # 1.8 10^3/uL (0.8-4.8); Lymphocytes % 33.8 %; Mean Corpuscular HGB Conc 33.5 g/dL (30.0-36.0); Mean Corpuscular Hemoglobin 31.8 pg (28.0-34.0); Mean Corpuscular Volume 94.9 fl (80-94); Mean Platelet Volume 9.9 fL (7.4-10.4); Monocytes # 0.7 10^3/uL (0.2-0.9); Neutrophils # 2.47 10^3/uL (1.8-7.7); Neutrophils % 46.7 %; Nucleated Red Blood Cells % 0 %; Platelet Count 117 10^3/cmm (130-400); Red Cell Distribution Width 14.6 % (12.1-15.1); White Blood Count 5.3 10^3/uL (4.0-10.0)
[2022-08-07 10:51] LABS: Slide Review Slide Review Perform
[2022-08-07] MEDS: dextrose 5% 250 ML 100 ML IV (11:33)
[2022-08-07] MEDS: palonosetron 0.25 mg/5 mL SDV (11:34)
[2022-08-07] MEDS: oxaliplatin 100 MG, oxaliplatin 36 MG in dextrose 5% 250 ML 69.3 MG IV (12:31)
[2022-08-07] MEDS: leucovorin 720 MG in dextrose 5% 250 ML 80.5 MG IV (12:31)
[2022-08-07] MEDS: fluorouraciL 4,350 MG, elastomeric pump 1 PUMP in sodium chloride 0.9% (100 ml) 5 ML IV (15:58)
[2022-08-07 16:05] VITALS: BP 140/73; PULSE 66; TEMP 37.1; O2SAT 97
[2022-08-09 10:49] VITALS: BP 145/70; PULSE 60; RESP 18; TEMP 36.2; O2SAT 97
[2022-08-21 08:19] LABS: Basophils % 0.8 %; Eosinophils # 0.2 10^3/uL (0.0-0.8); Eosinophils % 3.6 %; Hematocrit 36.7 % (42.0-52.0); Hemoglobin 13.3 g/dL (11.7-16.6); Lymphocytes # 1.4 10^3/uL (0.8-4.8); Lymphocytes % 30.4 %; Mean Corpuscular HGB Conc 36.2 g/dL (30.0-36.0); Mean Corpuscular Hemoglobin 35.5 pg (28.0-34.0); Mean Corpuscular Volume 97.9 fl (80-94); Monocytes # 0.8 10^3/uL (0.2-0.9); Monocytes % 16.5 %; Neutrophils # 2.29 10^3/uL (1.8-7.7); Neutrophils % 48.5 %; Nucleated Red Blood Cells % 0 %; Platelet Count 116 10^3/cmm (130-400); Red Blood Count 3.75 10^6/uL (4.1-5.3); Red Cell Distribution Width 13.8 % (12.1-15.1); White Blood Count 4.7 10^3/uL (4.0-10.0)
[2022-08-21 08:40] LABS: Alanine Aminotransferase 30 U/L (0-41); Albumin Level 3.8 g/dL (3.5-5.2); Alkaline Phosphatase 90 U/L (40-130); Blood Urea Nitrogen 16 mg/dL (8-23); Calcium 9.5 mg/dL (8.5-10.5); Carbon Dioxide 24 mmol/L (22-29); Chloride 102 mmol/L (98-107); Globulin 3.4 g/dL (1.3-4.6); Glucose 194 mg/dL (65-115); Osmolality Calculated 294 mOsm/kg (285-295); Sodium 139 mmol/L (136-145); Total Bilirubin 0.6 mg/dL (0.15-1.2); Total Protein 7.2 g/dL (6.6-8.7)
[2022-08-21 08:43] LABS: Anion Gap 17.2 (5-19); Aspartate Amino Transferase 39 U/L (0-40); Potassium 4.2 mmol/L (3.5-5.1)
[2022-08-21] MEDS: dextrose 5% 250 ML 100 ML IV (10:41)
[2022-08-21] MEDS: palonosetron 0.25 MG in sodium chloride 0.9% 50 ML 187 MG IV (10:43)
[2022-08-21] MEDS: oxaliplatin 100 MG, oxaliplatin 36 MG in dextrose 5% 250 ML 69.3 MG IV (11:34)
[2022-08-21] MEDS: leucovorin 720 MG in dextrose 5% 250 ML 80.5 MG IV (11:34)
[2022-08-21] MEDS: fluorouraciL 4,350 MG, elastomeric pump 1 PUMP in sodium chloride 0.9% (100 ml) 5 ML IV (15:10)
[2022-08-21 15:19] VITALS: BP 138/75; PULSE 77; TEMP 36.9; O2SAT 98
== END 2022-08-30 23:59 | disposition home or self-care (01) ==
PROVIDERS: Nurse Practitioner Family; PCP Nurse Practitioner Family; Visit Provider Internal Medicine Hematology & Oncology
DX: Z45.2 Encounter for adjustment and management of vascular access device (principal); C18.2 Malignant neoplasm of ascending colon; Z53.9 Procedure and treatment not carried out, unspecified reason
CPT/HCPCS: 80053; 85025; 96367; 96368; 96375; 96413; 96415; 96416; 96523; 99214; J0640; J1100; J2469; J9190; J9263

== ENCOUNTER 2022-09-20 11:30 | Oncology outpatient (recurring) (ONCR) | payer MEDICARE, MEDICAID, SELFPAY ==
[2022-09-04 08:54] LABS: Alanine Aminotransferase 31 U/L (0-41); Alkaline Phosphatase 89 U/L (40-130); Anion Gap 15.1 (5-19); Aspartate Amino Transferase 39 U/L (0-40); Blood Urea Nitrogen 19 mg/dL (8-23); Calcium 9.6 mg/dL (8.5-10.5); Carbon Dioxide 26 mmol/L (22-29); Chloride 100 mmol/L (98-107); Globulin 3.1 g/dL (1.3-4.6); Glucose 207 mg/dL (65-115); Osmolality Calculated 292 mOsm/kg (285-295); Potassium 4.1 mmol/L (3.5-5.1); Sodium 137 mmol/L (136-145); Total Bilirubin 0.8 mg/dL (0.15-1.2); Total Protein 7.1 g/dL (6.6-8.7)
[2022-09-04 09:22] LABS: Basophils % 0.8 %; Eosinophils # 0.2 10^3/uL (0.0-0.8); Eosinophils % 3.8 %; Hematocrit 40.9 % (42.0-52.0); Hemoglobin 13.8 g/dL (11.7-16.6); Lymphocytes # 1.7 10^3/uL (0.8-4.8); Lymphocytes % 32.6 %; Mean Corpuscular Hemoglobin 32.4 pg (28.0-34.0); Mean Platelet Volume 9.5 fL (7.4-10.4); Monocytes # 0.8 10^3/uL (0.2-0.9); Monocytes % 14.9 %; Neutrophils # 2.53 10^3/uL (1.8-7.7); Neutrophils % 47.7 %; Nucleated Red Blood Cells % 0 %; Platelet Count 124 10^3/cmm (130-400); Red Blood Count 4.26 10^6/uL (4.1-5.3); Red Cell Distribution Width 13.4 % (12.1-15.1); White Blood Count 5.3 10^3/uL (4.0-10.0)
[2022-09-04 09:24] LABS: Mean Corpuscular HGB Conc 33.7 g/dL (30.0-36.0)
[2022-09-04] MEDS: palonosetron 0.25 MG in sodium chloride 0.9% 50 ML 187 MG IV (10:07)
[2022-09-04] MEDS: dextrose 5% 250 ML 100 ML IV (10:07)
[2022-09-04] MEDS: oxaliplatin 100 MG, oxaliplatin 36 MG in dextrose 5% 250 ML 69.3 MG IV (10:44)
[2022-09-04] MEDS: leucovorin 720 MG in dextrose 5% 250 ML 80.5 MG IV (10:45)
[2022-09-04] MEDS: fluorouraciL 4,350 MG, elastomeric pump 1 PUMP in sodium chloride 0.9% (100 ml) 5 ML IV (14:28)
[2022-09-18 08:17] LABS: Basophils % 0.8 %; Eosinophils # 0.3 10^3/uL (0.0-0.8); Eosinophils % 6.2 %; Hematocrit 36.9 % (42.0-52.0); Hemoglobin 12.8 g/dL (11.7-16.6); Lymphocytes # 1.6 10^3/uL (0.8-4.8); Lymphocytes % 32.2 %; Mean Corpuscular HGB Conc 34.7 g/dL (30.0-36.0); Mean Corpuscular Hemoglobin 34.3 pg (28.0-34.0); Mean Corpuscular Volume 98.9 fl (80-94); Mean Platelet Volume 9.6 fL (7.4-10.4); Monocytes # 0.7 10^3/uL (0.2-0.9); Monocytes % 14.5 %; Neutrophils # 2.21 10^3/uL (1.8-7.7); Neutrophils % 45.9 %; Nucleated Red Blood Cells % 0 %; Platelet Count 135 10^3/cmm (130-400); Red Blood Count 3.73 10^6/uL (4.1-5.3); Red Cell Distribution Width 13.2 % (12.1-15.1); White Blood Count 4.8 10^3/uL (4.0-10.0)
[2022-09-18 08:39] LABS: Alanine Aminotransferase 26 U/L (0-41); Albumin Level 3.7 g/dL (3.5-5.2); Alkaline Phosphatase 82 U/L (40-130); Anion Gap 12.7 (5-19); Aspartate Amino Transferase 33 U/L (0-40); Blood Urea Nitrogen 9 mg/dL (8-23); Calcium 9.3 mg/dL (8.5-10.5); Carbon Dioxide 27 mmol/L (22-29); Chloride 102 mmol/L (98-107); Globulin 3.1 g/dL (1.3-4.6); Glucose 195 mg/dL (65-115); Osmolality Calculated 290 mOsm/kg (285-295); Potassium 3.7 mmol/L (3.5-5.1); Sodium 138 mmol/L (136-145); Total Bilirubin 0.7 mg/dL (0.15-1.2); Total Protein 6.8 g/dL (6.6-8.7)
[2022-09-18] MEDS: dextrose 5% 250 ML 100 ML IV (11:00)
[2022-09-18] MEDS: palonosetron 0.25 mg/5 mL SDV IVP (11:01)
[2022-09-18] MEDS: leucovorin 720 MG in dextrose 5% 250 ML 62.5 MG IV (11:47)
[2022-09-18] MEDS: oxaliplatin 100 MG, oxaliplatin 36 MG in dextrose 5% 250 ML 69.3 MG IV (11:47)
[2022-09-18] MEDS: fluorouraciL 4,350 MG, elastomeric pump 1 PUMP in sodium chloride 0.9% (100 ml) 5 ML IV (15:39)
[2022-09-18 15:46] VITALS: BP 153/71; PULSE 77; RESP 16; TEMP 36.7; O2SAT 96
== END 2022-09-30 23:59 | disposition home or self-care (01) ==
PROVIDERS: PCP Nurse Practitioner Family; Visit Provider Internal Medicine Hematology & Oncology
DX: Z45.2 Encounter for adjustment and management of vascular access device (principal)
CPT/HCPCS: 80053; 85025; 96367; 96368; 96375; 96413; 96415; 96416; 96523; 99214; J0640; J1100; J2469; J9190; J9263

== ENCOUNTER 2022-10-21 08:21 | Oncology outpatient (recurring) (ONCR) | payer MEDICARE, MEDICAID, SELFPAY ==
[2022-10-21 08:40] LABS: Basophils % 0.9 %; Eosinophils # 0.3 10^3/uL (0.0-0.8); Eosinophils % 5.3 %; Hematocrit 36.1 % (42.0-52.0); Hemoglobin 13.4 g/dL (11.7-16.6); Lymphocytes # 1.3 10^3/uL (0.8-4.8); Mean Corpuscular HGB Conc 37.1 g/dL (30.0-36.0); Mean Corpuscular Hemoglobin 36.6 pg (28.0-34.0); Mean Corpuscular Volume 98.6 fl (80-94); Mean Platelet Volume 9.3 fL (7.4-10.4); Monocytes # 0.6 10^3/uL (0.2-0.9); Neutrophils % 53.4 %; Nucleated Red Blood Cells % 0 %; Platelet Count 125 10^3/cmm (130-400); Red Blood Count 3.66 10^6/uL (4.1-5.3); Red Cell Distribution Width 12.1 % (12.1-15.1); White Blood Count 4.7 10^3/uL (4.0-10.0)
[2022-10-21 08:56] LABS: Alanine Aminotransferase 23 U/L (0-41); Albumin Level 3.8 g/dL (3.5-5.2); Alkaline Phosphatase 100 U/L (40-130); Anion Gap 16.3 (5-19); Aspartate Amino Transferase 31 U/L (0-40); Blood Urea Nitrogen 16 mg/dL (8-23); Calcium 9.5 mg/dL (8.5-10.5); Carbon Dioxide 25 mmol/L (22-29); Chloride 101 mmol/L (98-107); Globulin 3.6 g/dL (1.3-4.6); Glucose 182 mg/dL (65-115); Osmolality Calculated 292 mOsm/kg (285-295); Potassium 4.3 mmol/L (3.5-5.1); Sodium 138 mmol/L (136-145); Total Bilirubin 0.7 mg/dL (0.15-1.2); Total Protein 7.4 g/dL (6.6-8.7)
== END 2022-10-30 23:59 | disposition home or self-care (01) ==
PROVIDERS: PCP Nurse Practitioner Family; Visit Provider Internal Medicine Hematology & Oncology
DX: C18.2 Malignant neoplasm of ascending colon; Z45.2 Encounter for adjustment and management of vascular access device; Z51.11 Encounter for antineoplastic chemotherapy; Z53.9 Procedure and treatment not carried out, unspecified reason
CPT/HCPCS: 36591; 80053; 85025

== ENCOUNTER → 2022-11-08 13:11 | Outpatient (BNVA) | payer MEDICARE, MEDICAID, SELFPAY | PROVIDERS: PCP Nurse Practitioner Family; Visit Provider Nurse Practitioner Family | DX: E11.65 Type 2 diabetes mellitus with hyperglycemia (principal); I10 Essential (primary) hypertension | CPT/HCPCS: 80061; 82043; 83036; 84443 ==

== ENCOUNTER 2022-12-04 11:33 | Oncology outpatient (recurring) (ONCR) | payer MEDICARE, MEDICAID, SELFPAY ==
[2022-12-04 12:52] LABS: Basophils % 0.7 %; Eosinophils # 0.4 10^3/uL (0.0-0.8); Eosinophils % 5.9 %; Hematocrit 37.6 % (42.0-52.0); Hemoglobin 13.5 g/dL (11.7-16.6); Lymphocytes # 1.5 10^3/uL (0.8-4.8); Lymphocytes % 25.2 %; Mean Corpuscular HGB Conc 35.9 g/dL (30.0-36.0); Mean Corpuscular Hemoglobin 34.7 pg (28.0-34.0); Mean Corpuscular Volume 96.7 fl (80-94); Monocytes # 0.5 10^3/uL (0.2-0.9); Monocytes % 7.9 %; Neutrophils # 3.56 10^3/uL (1.8-7.7); Neutrophils % 59.8 %; Nucleated Red Blood Cells % 0 %; Platelet Count 184 10^3/cmm (130-400); Red Blood Count 3.89 10^6/uL (4.1-5.3); Red Cell Distribution Width 11.7 % (12.1-15.1)
[2022-12-04 13:20] LABS: Alanine Aminotransferase 27 U/L (0-41); Albumin Level 4.3 g/dL (3.5-5.2); Alkaline Phosphatase 87 U/L (40-130); Anion Gap 15.4 (5-19); Aspartate Amino Transferase 31 U/L (0-40); Blood Urea Nitrogen 15 mg/dL (8-23); Calcium 9.2 mg/dL (8.5-10.5); Carbon Dioxide 25 mmol/L (22-29); Chloride 100 mmol/L (98-107); Globulin 3.1 g/dL (1.3-4.6); Glucose 155 mg/dL (65-115); Osmolality Calculated 286 mOsm/kg (285-295); Potassium 4.4 mmol/L (3.5-5.1); Sodium 136 mmol/L (136-145); Total Bilirubin 0.6 mg/dL (0.15-1.2); Total Protein 7.4 g/dL (6.6-8.7)
== END 2022-12-31 23:59 | disposition home or self-care (01) ==
PROVIDERS: PCP Nurse Practitioner Family; Visit Provider Internal Medicine Hematology & Oncology
DX: C18.2 Malignant neoplasm of ascending colon (principal); C77.8 Secondary and unspecified malignant neoplasm of lymph nodes of multiple regions; Z92.21 Personal history of antineoplastic chemotherapy; Z95.828 Presence of other vascular implants and grafts
CPT/HCPCS: 36591; 80053; 85025; 99214

== ENCOUNTER → 2023-01-08 13:21 | Outpatient (BNVA) | payer MEDICARE, MEDICAID, SELFPAY | PROVIDERS: PCP Nurse Practitioner Family; Visit Provider Internal Medicine Cardiovascular Disease | DX: R06.00 Dyspnea, unspecified (principal); I10 Essential (primary) hypertension; F17.200 Nicotine dependence, unspecified, uncomplicated | CPT/HCPCS: 99214; Q3014 ==

== ENCOUNTER 2023-01-16 12:08 | Oncology outpatient (recurring) (ONCR) | payer MEDICARE, MEDICAID, SELFPAY | END 2023-01-28 23:59 | disposition home or self-care (01) | LOC: ONCMED 12:08 | PROVIDERS: PCP Nurse Practitioner Family; Visit Provider Internal Medicine Hematology & Oncology | DX: Z95.828 Presence of other vascular implants and grafts; Z45.2 Encounter for adjustment and management of vascular access device; C18.2 Malignant neoplasm of ascending colon | CPT/HCPCS: 96523 ==

== ENCOUNTER 2023-02-13 12:59 | Oncology outpatient (recurring) (ONCR) | payer MEDICARE, MEDICAID, SELFPAY | END 2023-02-28 23:59 | disposition home or self-care (01) | LOC: ONCMED 13:00 | PROVIDERS: PCP Nurse Practitioner Family; Visit Provider Internal Medicine Hematology & Oncology | DX: C18.2 Malignant neoplasm of ascending colon (principal); C77.8 Secondary and unspecified malignant neoplasm of lymph nodes of multiple regions; Z92.21 Personal history of antineoplastic chemotherapy; Z95.828 Presence of other vascular implants and grafts | CPT/HCPCS: 96523 ==

== ENCOUNTER 2023-03-13 12:58 | Oncology outpatient (recurring) (ONCR) | payer MEDICARE, MEDICAID, SELFPAY ==
[2023-03-13 14:00] LABS: Basophils # 0.1 10^3/uL (0.0-0.1); Basophils % 0.7 %; Eosinophils # 0.2 10^3/uL (0.0-0.8); Hematocrit 39.5 % (42.0-52.0); Hemoglobin 13.8 g/dL (11.7-16.6); Lymphocytes # 2.1 10^3/uL (0.8-4.8); Lymphocytes % 30.2 %; Mean Corpuscular HGB Conc 34.9 g/dL (30.0-36.0); Mean Corpuscular Hemoglobin 31.2 pg (28.0-34.0); Mean Corpuscular Volume 89.4 fl (80-94); Mean Platelet Volume 8.8 fL (7.4-10.4); Monocytes # 0.6 10^3/uL (0.2-0.9); Monocytes % 8.4 %; Neutrophils # 3.96 10^3/uL (1.8-7.7); Neutrophils % 57.4 %; Nucleated Red Blood Cells % 0 %; Platelet Count 160 10^3/cmm (130-400); Red Blood Count 4.42 10^6/uL (4.1-5.3); White Blood Count 6.9 10^3/uL (4.0-10.0)
[2023-03-13 14:30] LABS: Carcinoembryonic Antigen 4.3 ng/mL (0.0-4.7)
[2023-03-13 14:41] LABS: Alanine Aminotransferase 30 U/L (0-41); Albumin Level 4.3 g/dL (3.5-5.2); Alkaline Phosphatase 66 U/L (40-130); Anion Gap 16.6 (5-19); Aspartate Amino Transferase 27 U/L (0-40); Blood Urea Nitrogen 19 mg/dL (8-23); Calcium 9.4 mg/dL (8.5-10.5); Carbon Dioxide 23 mmol/L (22-29); Chloride 99 mmol/L (98-107); Globulin 2.9 g/dL (1.3-4.6); Glucose 125 mg/dL (65-115); Osmolality Calculated 282 mOsm/kg (285-295); Potassium 4.6 mmol/L (3.5-5.1); Sodium 134 mmol/L (136-145); Total Bilirubin 0.8 mg/dL (0.15-1.2); Total Protein 7.2 g/dL (6.6-8.7)
== END 2023-03-30 23:59 | disposition home or self-care (01) ==
PROVIDERS: PCP Nurse Practitioner Family; Visit Provider Internal Medicine Hematology & Oncology
DX: Z08 Encounter for follow-up examination after completed treatment for malignant neoplasm; Z85.038 Personal history of other malignant neoplasm of large intestine; Z86.010 Personal history of colon polyps; Z92.21 Personal history of antineoplastic chemotherapy; Z87.891 Personal history of nicotine dependence
CPT/HCPCS: 36591; 80053; 82378; 85025; 99213

== ENCOUNTER 2023-04-24 12:17 | Oncology outpatient (recurring) (ONCR) | payer MEDICARE, MEDICAID, SELFPAY ==
[2023-04-24 13:07] VITALS: BP 146/67; PULSE 53; RESP 18; TEMP 36.7; O2SAT 99
== END 2023-04-30 23:59 | disposition home or self-care (01) ==
PROVIDERS: PCP Nurse Practitioner Family; Visit Provider Internal Medicine Hematology & Oncology
DX: Z45.2 Encounter for adjustment and management of vascular access device (principal)
CPT/HCPCS: 96523; J1642

== ENCOUNTER → 2023-04-29 10:35 | Outpatient (BNVA) | payer MEDICARE, MEDICAID, SELFPAY | PROVIDERS: PCP Nurse Practitioner Family; Visit Provider Surgery | DX: Z90.49 Acquired absence of other specified parts of digestive tract (principal); C18.2 Malignant neoplasm of ascending colon | CPT/HCPCS: 99213 ==

== ENCOUNTER 2023-05-23 10:13 | Oncology outpatient (recurring) (ONCR) | payer MEDICARE, MEDICAID, SELFPAY ==
[2023-05-23 10:42] VITALS: BP 148/79; PULSE 60; RESP 18; TEMP 36.8; O2SAT 96
== END 2023-05-30 23:59 | disposition home or self-care (01) ==
LOC: ONCMED 10:14
PROVIDERS: PCP Nurse Practitioner Family; Visit Provider Internal Medicine Hematology & Oncology
DX: C18.2 Malignant neoplasm of ascending colon (principal); C77.8 Secondary and unspecified malignant neoplasm of lymph nodes of multiple regions; Z92.21 Personal history of antineoplastic chemotherapy; Z95.828 Presence of other vascular implants and grafts
CPT/HCPCS: 96523; J1642

== ENCOUNTER 2023-05-28 06:35 | Day surgery (SDC) | payer MEDICARE, MEDICAID, SELFPAY ==
[2023-05-26 09:10] VITALS: BMI 28.5
[2023-05-28 06:55] VITALS: BP 155/74; PULSE 57; RESP 16; TEMP 36.6; O2SAT 95
[2023-05-28] MEDS: sodium chloride 0.9% 1,000 ML 30 ML IV (07:01)
[2023-05-28 07:08] LABS: Glucose Point of Care 165 mg/dL (70-110)
--- NOTE | 2023-05-28 07:16 | ANES.PREANE2 ---
Pre-Anesthetic Assessment Height/Weight: Height 1.85 m Weight 97.976 kg Temp Pulse Resp BP Pulse Ox O2 Del Method 97.9 F 57 L 16 155/74 95 Room Air 05/28/23 06:55 05/28/23 06:55 05/28/23 06:55 05/28/23 06:55 05/28/23 06:55 05/28/23 06:55 Preop Diagnosis: Status Right Hemicoletomy, Malignant Neoplasm of Ascending Colon Operation Date: 05/28/23 08:00 Proposed Procedures p Colonoscopy 29555 Z90.49 C18.2(Not Applicable) - Laurent Loomis DO Familial anesthetic complications: none Was Beta Alok taken within 24 hours: Yes Last intake: Intake Last Liquid Date 05/27/23 Last Liquid Time 22:00 Last Solid Date 05/26/23 Last Solid Time 22:00 Social not currently smoking quit 5 years prior. pack(s) per day Patient stated he smoked 3 ppd x 40 yrs. Exam alert, oriented x 3, clear to auscultation bilaterally and regular rate & rhythm Airway Submandibular: within normal limits Cervical ROM: within normal limits Mallampati: Class III Dentition: chipped Comments: Comments: multiple missing/chipped Pulmonary Chronic Obstructive Pulmonary Disease and Cough (productive) CV/HEM Hypertension None reported Hepatic None reported GI Gastroesophageal Reflux Disease previous colon CA finished chemo 10/22 Metabolic Diabetes Mellitus and Hyperlipidemia [facility] None reported Neuropsych None reported Anesthetic Plan ASA status: 3 Anesthesia: MAC Medications/Allergies Home Medications Medication Instructions Recorded Confirmed Last Taken Type aspirin 81 mg tablet,delayed 81 mg PO DAILY 01/25/20 05/28/23 05/27/23 History release (Adult Low Dose Aspirin) losartan 100 mg tablet 100 mg PO DAILY #90 tabs 09/25/22 05/28/23 05/27/23 Rx hydrochlorothiazide 12.5 mg tablet 12.5 mg PO DIRECTED 01/08/23 05/28/23 05/27/23 History carvedilol 6.25 mg tablet 6.25 mg PO BID #180 tabs 02/03/23 05/28/23 05/28/23 Rx blood sugar diagnostic (OneTouch #100 ea 02/24/23 05/28/23 05/27/23 Rx Verio test strips) IRON 65MG TAB 65 mg PO BID 03/13/23 05/28/23 05/27/23 History amlodipine 10 mg tablet 10 mg PO DAILY #90 tabs 04/02/23 05/28/23 05/27/23 Rx pantoprazole 40 mg tablet,delayed 40 mg PO DAILY 30 days #30 tabs 05/12/23 05/28/23 05/27/23 Rx release (Protonix) lancets 33 gauge (Kenyatta Fritz #100 ea 05/16/23 05/28/23 05/27/23 Rx Plus Lancet) albuterol sulfate 90 mcg/actuation 2 puff inhalation Q6H PRN 05/26/23 05/28/23 05/27/23 History aerosol inhaler Shortness Of Breath metformin 1,000 mg tablet 1,000 mg PO BID 05/26/23 05/28/23 05/27/23 History umeclidinium 62.5 mcg/actuation 1 inh inhalation DAILY 05/26/23 05/28/23 05/27/23 History blister powder for inhalation (Incruse Ellipta) Allergies Allergy/AdvReac Type Severity Reaction Status Date / Time Penicillins Allergy Unknown Verified 05/28/23 06:54 Sulfa (Sulfonamide Allergy Unknown Verified 05/28/23 06:54 Antibiotics) Current Medications Generic Name Dose Route Start Last Admin Trade Name Freq PRN Reason Stop Dose Admin Sodium Chloride 1,000 mls @ 30 mls/hr 05/28/23 06:45 05/28/23 07:01 Sodium Chloride 0.9% IV 05/29/23 06:44 30 mls/hr .Q24H MEGHA Administration PFSH Anesthesia Medical History Cancer of ascending colon COPD (chronic obstructive pulmonary disease) Diabetes Hypertension Surgical History H/O esophagogastroduodenoscopy (01/30/22) gastritis and esophagitis History of cholecystectomy Port-A-Cath in place (04/08/22) S/P right hemicolectomy (02/05/22) Status post colonoscopy with polypectomy (01/30/22) ascending colon mass, transverse colon polyps, diverticulosis Status post right inguinal hernia repair Family History Mother Cancer Father CAD (coronary artery disease) Social History Smoking and tobacco status: former smoker Quit status (tobacco): has quit using tobacco Year quit tobacco: 2-3 years ago Former quit date comment: Smoked for 50 to 60 years Second hand smoke exposure: No Alcohol intake: never Substance/Drug Use: never Lives independently: Yes Household members: none Housing: House Marital status: Current occupational status: retired Current gender identity: Male Data Anesthesia Cardiac Studies: Sestamibi Stress Test (Cardiology) 02/04/22
--- NOTE | 2023-05-28 07:37 | W.PM.OPSUD ---
Surgery/Procedure H&P Update DATE OF PROCEDURE: May 28, 2023 DATE H&P PERFORMED: 04/29/23 H&P UPDATE INFORMATION: I have reviewed H&P completed within last 30 days, I have examined patient prior to procedure and No changes to prior documentation PREOP DIAGNOSIS: Status Right Hemicoletomy, Malignant Neoplasm of Ascending Colon PLANNED PROCEDURE: Operation Date: 05/28/23 08:00 Proposed Procedures p Colonoscopy 70178 Z90.49 C18.2(Not Applicable) - Laurent Loomis DO
[2023-05-28 08:02] VITALS: BP 103/62; PULSE 69; RESP 17; TEMP 36.2; O2SAT 94
[2023-05-28 08:12] VITALS: BP 122/71; PULSE 64; RESP 17; TEMP 36.2; O2SAT 94
--- NOTE | 2023-05-28 15:50 | ANE.PACU2 ---
Inpatient post-anesthesia follow up: Airway intact: Yes Vital signs: Temperature 97.1 F Pulse Rate 64 Respiratory Rate 17 Blood Pressure 122/71 Pulse Oximetry 94 Oxygen Delivery Me thod Room Air Oxygen Flow Rate Fraction of Inspir ed Oxygen Hydration adequate: Yes Nausea and vomiting: No Pain level: 1 Mental status: Baseline
== END 2023-05-28 08:33 | disposition home or self-care (01) ==
PROVIDERS: PCP Nurse Practitioner Family; Visit Provider Surgery
PROC: 0DJD8ZZ Inspection of Lower Intestinal Tract, Via Natural or Artificial Opening Endoscopic (ICD-10-PCS; CPT 45378; principal; 2023-05-28 08:00)
DX: C18.2 Malignant neoplasm of ascending colon (principal); Z90.49 Acquired absence of other specified parts of digestive tract; Z95.828 Presence of other vascular implants and grafts; Z79.82 Long term (current) use of aspirin; E11.9 Type 2 diabetes mellitus without complications; Z79.84 Long term (current) use of oral hypoglycemic drugs; I10 Essential (primary) hypertension; Z87.891 Personal history of nicotine dependence; J44.9 Chronic obstructive pulmonary disease, unspecified; K21.9 Gastro-esophageal reflux disease without esophagitis; D12.5 Benign neoplasm of sigmoid colon
CPT/HCPCS: 36416; 45385; 82962; 88305; J2704; J3490; J7030

== ENCOUNTER → 2023-06-11 17:44 | Outpatient (BNVA) | payer MEDICARE, MEDICAID, SELFPAY | PROVIDERS: PCP Nurse Practitioner Family; Visit Provider Surgery | DX: Z09 Encounter for follow-up examination after completed treatment for conditions other than malignant neoplasm (principal); K21.9 Gastro-esophageal reflux disease without esophagitis; E11.65 Type 2 diabetes mellitus with hyperglycemia; J44.9 Chronic obstructive pulmonary disease, unspecified; I10 Essential (primary) hypertension | CPT/HCPCS: 80053; 80061; 83036; 84443; 99212 ==

== ENCOUNTER 2023-06-26 12:49 | Oncology outpatient (recurring) (ONCR) | payer MEDICARE, MEDICAID, SELFPAY ==
[2023-06-26 12:53] VITALS: BP 163/69; PULSE 73; RESP 18; TEMP 37.1; O2SAT 96
[2023-06-26 13:13] LABS: Basophils % 0.6 %; Eosinophils # 0.1 10^3/uL (0.0-0.8); Eosinophils % 1.9 %; Hematocrit 39.1 % (42.0-52.0); Hemoglobin 13.5 g/dL (11.7-16.6); Lymphocytes # 2.1 10^3/uL (0.8-4.8); Lymphocytes % 30.6 %; Mean Corpuscular HGB Conc 34.5 g/dL (30.0-36.0); Mean Corpuscular Hemoglobin 30.5 pg (28.0-34.0); Mean Corpuscular Volume 88.5 fl (80-94); Monocytes # 0.6 10^3/uL (0.2-0.9); Monocytes % 7.9 %; Neutrophils # 4.09 10^3/uL (1.8-7.7); Neutrophils % 58.7 %; Nucleated Red Blood Cells % 0 %; Platelet Count 205 10^3/cmm (130-400); Red Blood Count 4.42 10^6/uL (4.1-5.3); Red Cell Distribution Width 12.3 % (12.1-15.1)
[2023-06-26 14:31] LABS: Carcinoembryonic Antigen 4.1 ng/mL (0.0-4.7)
[2023-06-26 14:42] LABS: Alanine Aminotransferase 45 U/L (0-41); Albumin Level 4.6 g/dL (3.5-5.2); Alkaline Phosphatase 70 U/L (40-130); Anion Gap 20.5 (5-19); Aspartate Amino Transferase 30 U/L (0-40); Blood Urea Nitrogen 26 mg/dL (8-23); Calcium 9.7 mg/dL (8.5-10.5); Carbon Dioxide 21 mmol/L (22-29); Chloride 97 mmol/L (98-107); Creatinine Clr Calc Pharmacy 52.0628; Globulin 2.5 g/dL (1.3-4.6); Glucose 168 mg/dL (65-115); Osmolality Calculated 287 mOsm/kg (285-295); Potassium 4.5 mmol/L (3.5-5.1); Sodium 134 mmol/L (136-145); Total Bilirubin 0.9 mg/dL (0.15-1.2); Total Protein 7.1 g/dL (6.6-8.7)
== END 2023-06-30 23:59 | disposition home or self-care (01) ==
PROVIDERS: Nurse Practitioner Family; PCP Nurse Practitioner Family; Visit Provider Internal Medicine Hematology & Oncology
DX: Z08 Encounter for follow-up examination after completed treatment for malignant neoplasm; Z85.038 Personal history of other malignant neoplasm of large intestine; Z90.49 Acquired absence of other specified parts of digestive tract; N28.89 Other specified disorders of kidney and ureter; R73.9 Hyperglycemia, unspecified; R74.01 Elevation of levels of liver transaminase levels; Z92.21 Personal history of antineoplastic chemotherapy; Z95.828 Presence of other vascular implants and grafts; C18.2 Malignant neoplasm of ascending colon
CPT/HCPCS: 36591; 80053; 82378; 85025; 99214; J1642

== ENCOUNTER 2023-07-24 13:03 | Oncology outpatient (recurring) (ONCR) | payer MEDICARE, MEDICAID, SELFPAY ==
[2023-07-24 13:13] VITALS: BP 158/71; PULSE 63; RESP 18; TEMP 36.9; O2SAT 98
== END 2023-07-31 23:59 | disposition home or self-care (01) ==
LOC: ONCMED 13:04
PROVIDERS: PCP Nurse Practitioner Family; Visit Provider Internal Medicine Medical Oncology
DX: Z45.2 Encounter for adjustment and management of vascular access device (principal)
CPT/HCPCS: 96523; J1642

== ENCOUNTER 2023-08-21 12:03 | Oncology outpatient (recurring) (ONCR) | payer MEDICARE, MEDICAID, SELFPAY ==
[2023-08-21 12:20] VITALS: BP 165/92; PULSE 74; RESP 16; TEMP 36.9; O2SAT 96
== END 2023-08-30 23:59 | disposition home or self-care (01) ==
LOC: ONCMED 12:04
PROVIDERS: PCP Nurse Practitioner Family; Visit Provider Internal Medicine Medical Oncology
DX: Z45.2 Encounter for adjustment and management of vascular access device (principal)
CPT/HCPCS: 96523; J1642

== ENCOUNTER 2023-09-18 12:43 | Oncology outpatient (recurring) (ONCR) | payer MEDICARE, MEDICAID, SELFPAY ==
[2023-09-18 13:08] VITALS: BP 170/76; PULSE 65; RESP 18; TEMP 36.6; O2SAT 98
== END 2023-09-30 23:59 | disposition home or self-care (01) ==
LOC: ONCMED 12:44
PROVIDERS: PCP Nurse Practitioner Family; Visit Provider Internal Medicine Medical Oncology
DX: Z45.2 Encounter for adjustment and management of vascular access device (principal)
CPT/HCPCS: 96523; J1642

== ENCOUNTER 2023-10-27 10:45 | Oncology outpatient (recurring) (ONCR) | payer MEDICARE, MEDICAID, SELFPAY ==
[2023-10-27 11:17] VITALS: BP 152/69; PULSE 66; RESP 16; TEMP 36.9; O2SAT 99
== END 2023-10-30 23:59 | disposition home or self-care (01) ==
LOC: ONCMED 10:45
PROVIDERS: PCP Nurse Practitioner Family; Visit Provider Internal Medicine Medical Oncology
DX: Z45.2 Encounter for adjustment and management of vascular access device (principal); I10 Essential (primary) hypertension
CPT/HCPCS: 99213; J1642

== ENCOUNTER 2023-12-04 13:08 | Oncology outpatient (recurring) (ONCR) | payer MEDICARE, MEDICAID, SELFPAY ==
[2023-12-04 13:30] LABS: Basophils % 0.5 %; Eosinophils # 0.2 10^3/uL (0.0-0.8); Eosinophils % 2.6 %; Hematocrit 40.9 % (37-53); Lymphocytes # 2.1 10^3/uL (0.8-4.8); Lymphocytes % 27.2 %; Mean Corpuscular HGB Conc 35.2 g/dL (30-55); Mean Corpuscular Hemoglobin 30.9 pg (27-33); Mean Corpuscular Volume 87.8 fl (82-101); Mean Platelet Volume 8.7 fL (7.4-10.4); Monocytes # 0.5 10^3/uL (0.2-0.9); Monocytes % 6.9 %; Neutrophils # 4.82 10^3/uL (1.8-7.7); Neutrophils % 62.5 %; Nucleated Red Blood Cells % 0 %; Platelet Count 208 10^3/cmm (157-399); Red Blood Count 4.66 10^6/uL (3.85-5.65); Red Cell Distribution Width 12.1 % (12.1-15.1); White Blood Count 7.71 10^3/uL (3.29-11.43)
[2023-12-04 13:56] LABS: Alanine Aminotransferase 57 U/L (0-41); Albumin Level 4.5 g/dL (3.5-5.2); Alkaline Phosphatase 65 U/L (40-130); Anion Gap 16.4 (5-19); Aspartate Amino Transferase 33 U/L (0-40); Blood Urea Nitrogen 31 mg/dL (8-23); Calcium 9.1 mg/dL (8.5-10.5); Carbon Dioxide 21 mmol/L (22-29); Chloride 102 mmol/L (98-107); Glucose 183 mg/dL (65-115); Osmolality Calculated 291 mOsm/kg (285-295); Potassium 4.4 mmol/L (3.5-5.1); Sodium 135 mmol/L (136-145); Total Bilirubin 0.7 mg/dL (0.15-1.2); Total Protein 7.5 g/dL (6.6-8.7)
[2023-12-04 14:32] LABS: Carcinoembryonic Antigen 3.3 ng/mL (0.0-4.7)
== END 2023-12-31 23:59 | disposition home or self-care (01) ==
PROVIDERS: PCP Nurse Practitioner Family; Visit Provider Internal Medicine
DX: Z45.2 Encounter for adjustment and management of vascular access device (principal); C18.2 Malignant neoplasm of ascending colon; J44.9 Chronic obstructive pulmonary disease, unspecified; F17.200 Nicotine dependence, unspecified, uncomplicated; Z79.899 Other long term (current) drug therapy
CPT/HCPCS: 36591; 80053; 82378; 85025; 99214; J1642

== ENCOUNTER → 2023-12-19 09:10 | Outpatient (BNVA) | payer MEDICARE, MEDICAID, SELFPAY | PROVIDERS: PCP Nurse Practitioner Family; Visit Provider Nurse Practitioner Family | DX: Z12.5 Encounter for screening for malignant neoplasm of prostate (principal); E11.65 Type 2 diabetes mellitus with hyperglycemia | CPT/HCPCS: 80061; 83036; G0103 ==

== ENCOUNTER 2024-01-15 09:39 | Outpatient (CLI) | payer MEDICARE, MEDICAID, SELFPAY ==
--- NOTE | 2024-01-15 11:00 | CTR_ITS ---
PROCEDURE INFORMATION: Exam: CT Chest With Contrast; Diagnostic Exam date and time: 01/15/2024 11:10 AM Age: 78 years old Clinical indication: Condition or disease; Intestine, large; Other: Colon cancer; Additional info: Ascending colon cancer TECHNIQUE: Imaging protocol: Diagnostic computed tomography of the chest with contrast. Radiation optimization: All CT scans at this facility use at least one of these dose optimization techniques: automated exposure control; mA and/or kV adjustment per patient size (includes targeted exams where dose is matched to clinical indication); or iterative reconstruction. Contrast material: OMNI 350; Contrast volume: 100 ml; Contrast route: INTRAVENOUS (IV); COMPARISON: CT abdomen pelvis w con* [id number] 02/01/2022 9:05 AM RADIATION DOSE METRICS: Total DLP (mGy-cm): 1144.94 FINDINGS: Lungs: Unremarkable. No consolidation. No masses. Pleural spaces: Unremarkable. No pneumothorax. No pleural effusion. Heart: Unremarkable. No cardiomegaly. No pericardial effusion. Coronary arteries: Moderate coronary artery calcifications. Lymph nodes: Unremarkable. No enlarged lymph nodes. Vasculature: Unremarkable. No aortic aneurysm. Bones/joints: Unremarkable. No acute fracture. Soft tissues: Unremarkable. PROCEDURE INFORMATION: Exam: CT Abdomen And Pelvis With Contrast Exam date and time: 01/15/2024 11:10 AM Age: 78 years old Clinical indication: Condition or disease; Intestine, large; Other: Colon cancer; Additional info: Ascending colon cancer TECHNIQUE: Imaging protocol: Computed tomography of the abdomen and pelvis with contrast. Radiation optimization: All CT scans at this facility use at least one of these dose optimization techniques: automated exposure control; mA and/or kV adjustment per patient size (includes targeted exams where dose is matched to clinical indication); or iterative reconstruction. Contrast material: OMNI 350; Contrast volume: 100 ml; Contrast route: INTRAVENOUS (IV); COMPARISON: CT abdomen pelvis w con* [id number] 02/01/2022 9:05 AM RADIATION DOSE METRICS: Total DLP (mGy-cm): 1144.94 FINDINGS: Liver: Stable 4 mm left hepatic cyst. Gallbladder and bile ducts: Cholecystectomy. Pancreas: Normal. No ductal dilation. Spleen: Calcified splenic granulomata. Adrenal glands: Normal. No mass. Kidneys and ureters: Small bilateral renal cysts. Stomach and bowel: Unremarkable. No obstruction. No mucosal thickening. Appendix: No evidence of appendicitis. Intraperitoneal space: Unremarkable. No free air. No significant fluid collection. Vasculature: Unremarkable. No abdominal aortic aneurysm. Lymph nodes: Unremarkable. No enlarged lymph nodes. Urinary bladder: Unremarkable as visualized. Reproductive: Unremarkable as visualized. Bones/joints: Unremarkable. No acute fracture. Soft tissues: Bilateral inguinal hernias containing only fat. CT/CT chest abdpel w/*[id number] IMPRESSION: No acute findings. IMPRESSION: No acute findings. COMMENTS: Consistent with the [employer]'s Incidental Findings Committee white paper (J Am Mateo Radiol 2018): Any incidental renal lesion less than 1 cm or classified as too small to characterize, or any incidental cystic renal lesion characterized as simple-appearing, is likely benign. No follow-up imaging is recommended for these lesions per consensus recommendations based on imaging criteria.
[2024-01-15] MEDS: iohexol 350 mg/mL 500 mL Btl (per mL) IV (11:29)
[2024-01-15] MEDS: iohexol 350 mg/mL 500 mL Btl (per mL) PO (11:30)
== END 2024-01-15 09:40 | disposition home or self-care (01) ==
LOC: RAD 09:39
PROVIDERS: PCP Nurse Practitioner Family; Visit Provider Internal Medicine
DX: C18.2 Malignant neoplasm of ascending colon (principal)
CPT/HCPCS: 71260; 74177; Q9967

== ENCOUNTER 2024-01-15 10:11 | Oncology outpatient (recurring) (ONCR) | payer MEDICARE, MEDICAID, SELFPAY | END 2024-01-29 23:59 | disposition home or self-care (01) | PROVIDERS: PCP Nurse Practitioner Family; Visit Provider Internal Medicine | DX: Z45.2 Encounter for adjustment and management of vascular access device (principal); C18.2 Malignant neoplasm of ascending colon | CPT/HCPCS: 71260; 74177; J1642; Q9967 ==

== ENCOUNTER 2024-02-16 11:29 | Oncology outpatient (recurring) (ONCR) | payer MEDICARE, MEDICAID, SELFPAY ==
[2024-02-16 12:18] LABS: Basophils % 0.5 %; Eosinophils # 0.2 10^3/uL (0.0-0.8); Eosinophils % 2.6 %; Hematocrit 41.8 % (37-53); Lymphocytes # 2.1 10^3/uL (0.8-4.8); Lymphocytes % 26.8 %; Mean Corpuscular HGB Conc 36.1 g/dL (30-55); Mean Corpuscular Hemoglobin 31.5 pg (27-33); Mean Corpuscular Volume 87.1 fl (82-101); Mean Platelet Volume 8.9 fL (7.4-10.4); Monocytes # 0.6 10^3/uL (0.2-0.9); Monocytes % 7.4 %; Neutrophils # 4.99 10^3/uL (1.8-7.7); Neutrophils % 62.4 %; Nucleated Red Blood Cells % 0 %; Platelet Count 210 10^3/cmm (157-399); Red Cell Distribution Width 12.2 % (12.1-15.1); White Blood Count 7.99 10^3/uL (3.29-11.43)
[2024-02-16 12:35] LABS: Alanine Aminotransferase 48 U/L (0-41); Albumin Level 4.5 g/dL (3.5-5.2); Alkaline Phosphatase 69 U/L (40-130); Anion Gap 14.3 (5-19); Aspartate Amino Transferase 29 U/L (0-40); Blood Urea Nitrogen 27 mg/dL (8-23); Calcium 9.4 mg/dL (8.5-10.5); Carbon Dioxide 24 mmol/L (22-29); Chloride 98 mmol/L (98-107); Globulin 2.7 g/dL (1.3-4.6); Glucose 178 mg/dL (65-115); Osmolality Calculated 284 mOsm/kg (285-295); Potassium 4.3 mmol/L (3.5-5.1); Sodium 132 mmol/L (136-145); Total Bilirubin 0.8 mg/dL (0.15-1.2); Total Protein 7.2 g/dL (6.6-8.7)
[2024-02-16 14:57] LABS: Carcinoembryonic Antigen 3.7 ng/mL (0.0-4.7)
== END 2024-02-29 23:59 | disposition home or self-care (01) ==
PROVIDERS: PCP Nurse Practitioner Family; Visit Provider Internal Medicine
DX: Z45.2 Encounter for adjustment and management of vascular access device (principal); C18.2 Malignant neoplasm of ascending colon; Z79.899 Other long term (current) drug therapy
CPT/HCPCS: 36591; 80053; 82378; 85025; 99214

== ENCOUNTER 2024-03-22 09:19 | Oncology outpatient (recurring) (ONCR) | payer MEDICARE, MEDICAID, SELFPAY | END 2024-03-30 23:59 | disposition home or self-care (01) | LOC: ONCMED 09:19 | PROVIDERS: PCP Nurse Practitioner Family; Visit Provider Internal Medicine | DX: Z45.2 Encounter for adjustment and management of vascular access device (principal) | CPT/HCPCS: 96523 ==

== ENCOUNTER 2024-04-27 11:09 | Oncology outpatient (recurring) (ONCR) | payer MEDICARE, SELFPAY | END 2024-04-30 23:59 | disposition home or self-care (01) | LOC: ONCMED 11:10 | PROVIDERS: PCP Nurse Practitioner Family; Visit Provider Internal Medicine | DX: Z45.2 Encounter for adjustment and management of vascular access device (principal); R06.00 Dyspnea, unspecified; I10 Essential (primary) hypertension; Z87.891 Personal history of nicotine dependence | CPT/HCPCS: 96523; 99213 ==

== ENCOUNTER 2024-05-25 09:36 | Oncology outpatient (recurring) (ONCR) | payer MEDICARE, SELFPAY | END 2024-05-30 23:59 | disposition home or self-care (01) | LOC: ONCMED 09:37 | PROVIDERS: PCP Nurse Practitioner Family; Visit Provider Internal Medicine | DX: Z45.2 Encounter for adjustment and management of vascular access device (principal) | CPT/HCPCS: 96523 ==

== ENCOUNTER 2024-06-21 10:24 | Oncology outpatient (recurring) (ONCR) | payer MEDICARE, MEDICAID, SELFPAY ==
[2024-06-21 11:02] LABS: Basophils # 0.1 10^3/uL (0.0-0.1); Basophils % 0.6 %; Eosinophils # 0.2 10^3/uL (0.0-0.8); Eosinophils % 1.9 %; Hematocrit 43.1 % (37-53); Lymphocytes # 2.2 10^3/uL (0.8-4.8); Lymphocytes % 25.9 %; Mean Corpuscular HGB Conc 36.7 g/dL (30-55); Mean Corpuscular Hemoglobin 32.8 pg (27-33); Mean Corpuscular Volume 89.6 fl (82-101); Mean Platelet Volume 8.9 fL (7.4-10.4); Monocytes # 0.7 10^3/uL (0.2-0.9); Monocytes % 8.2 %; Neutrophils # 5.29 10^3/uL (1.8-7.7); Neutrophils % 62.9 %; Nucleated Red Blood Cells % 0 %; Platelet Count 255 10^3/cmm (157-399); Red Blood Count 4.81 10^6/uL (3.85-5.65); Red Cell Distribution Width 12.4 % (12.1-15.1); White Blood Count 8.41 10^3/uL (3.29-11.43)
[2024-06-21 11:10] LABS: Estmated Average Glucose 192; Hemoglobin A1C 8.3 % (4.0-6.0)
[2024-06-21 11:27] LABS: Alanine Aminotransferase 41 U/L (0-41); Albumin Level 4.6 g/dL (3.5-5.2); Alkaline Phosphatase 78 U/L (40-130); Anion Gap 18.4 (5-19); Aspartate Amino Transferase 24 U/L (0-40); Blood Urea Nitrogen 31 mg/dL (8-23); Calcium 9.6 mg/dL (8.5-10.5); Carbon Dioxide 22 mmol/L (22-29); Chloride 102 mmol/L (98-107); Cholesterol 171 mg/dL (0-200); Globulin 3.2 g/dL (1.3-4.6); Glucose 220 mg/dL (65-115); HDL Cholesterol 30 mg/dL (60-100); LDL Cholesterol Calculated 62 mg/dL (50-129); LDL HDL Ratio 2.07 RATIO (0.00-3.22); Osmolality Calculated 299 mOsm/kg (285-295); Potassium 4.4 mmol/L (3.5-5.1); Sodium 138 mmol/L (136-145); Thyroid Stimulating Hormone 1.04 uIU/mL (0.27-4.20); Total Bilirubin 0.9 mg/dL (0.15-1.2); Total Protein 7.8 g/dL (6.6-8.7); Triglycerides 393 mg/dL (0-150)
== END 2024-06-30 23:59 | disposition home or self-care (01) ==
PROVIDERS: PCP Nurse Practitioner Family; Visit Provider Internal Medicine
DX: E11.65 Type 2 diabetes mellitus with hyperglycemia
CPT/HCPCS: 36591; 80053; 80061; 83036; 84443; 85025

== ENCOUNTER 2024-07-19 08:14 | Outpatient (CLI) | payer MEDICARE, MEDICAID, SELFPAY ==
--- NOTE | 2024-07-19 09:30 | CTR_ITS ---
PROCEDURE INFORMATION: Exam: CT Chest With Contrast; Diagnostic Exam date and time: 07/19/2024 10:04 AM Age: 79 years old Clinical indication: Condition or disease; Cancer; Other: Malignant neoplasm of ascending colon; Prior surgery; Surgery date: 6+ months; Surgery type: Hernia, carlos; Additional info: Surveillance, plese schedule before 08/03/24 oncology follow-up appointment TECHNIQUE: Imaging protocol: Diagnostic computed tomography of the chest with contrast. Radiation optimization: All CT scans at this facility use at least one of these dose optimization techniques: automated exposure control; mA and/or kV adjustment per patient size (includes targeted exams where dose is matched to clinical indication); or iterative reconstruction. Contrast material: OMNI 350; Contrast volume: 100 ml; Contrast route: INTRAVENOUS (IV); COMPARISON: CT chest abdpel w/*[id number] 01/15/2024 11:10 AM RADIATION DOSE METRICS: Total DLP (mGy-cm): 1072.97 FINDINGS: Tubes, catheters and devices: There is a left chest port with the line tip positioned in the upper SVC. Lungs: There is subsegmental atelectasis in the lung bases. Pleural spaces: There is no pleural effusion or pneumothorax. Heart: There is mild cardiac enlargement. There is no pericardial effusion. Lymph nodes: There is no mediastinal or hilar lymphadenopathy. Vasculature: There is mild aortic atherosclerotic disease. Bones/joints: No suspicious bone lesions. Soft tissues: The extrathoracic soft tissues are unremarkable. PROCEDURE INFORMATION: Exam: CT Abdomen And Pelvis With Contrast Exam date and time: 07/19/2024 10:04 AM Age: 79 years old Clinical indication: Condition or disease; Cancer; Other: Malignant neoplasm of ascending colon; Prior surgery; Surgery date: 6+ months; Surgery type: Hernia, carlos; Additional info: Surveillance, plese schedule before 08/03/24 oncology follow-up appointment TECHNIQUE: Imaging protocol: Computed tomography of the abdomen and pelvis with contrast. Radiation optimization: All CT scans at this facility use at least one of these dose optimization techniques: automated exposure control; mA and/or kV adjustment per patient size (includes targeted exams where dose is matched to clinical indication); or iterative reconstruction. Contrast material: OMNI 350; Contrast volume: 100 ml; Contrast route: INTRAVENOUS (IV); COMPARISON: CT chest abdpel w/*[id number] 01/15/2024 11:10 AM RADIATION DOSE METRICS: Total DLP (mGy-cm): 1072.97 FINDINGS: Liver: There is a stable 7 mm cyst in the superior left lobe of the liver. No liver mass. Gallbladder and biliary ducts: The gallbladder is absent. There is no intrahepatic or extrahepatic bile duct dilation. Pancreas: The pancreas is unremarkable. Spleen: Splenic size is normal. There are scattered calcifications consistent with healed granulomas. Adrenal glands: The adrenal glands are unremarkable. Kidneys and ureters: There are simple cysts in the left kidney measuring up to 16 mm. There is no hydronephrosis or stones. The right kidney and ureter are unremarkable. Stomach and bowel: The stomach is nondistended, limiting assessment of wall thickness. The small bowel is nondilated. There is an unremarkable right upper quadrant ileocolic anastomosis. Right hemicolectomy. The remaining portion of the colon is normal. Appendix: The appendix is absent. Intraperitoneal space: There is no free air or significant intraperitoneal free fluid. Vasculature: There is moderate aortic atherosclerotic disease. The portal, splenic and superior mesenteric veins are patent. Lymph nodes: Lymph nodes in the melody hepatis are mildly enlarged, measuring up to 17 x 13 mm on axial series 5, image 27. Lymph nodes are slightly decreased in size since 01/15/2014 when the index node measured 20 x 14 mm. No retroperitoneal, pelvic, inguinal, or mesenteric lymphadenopathy. Urinary bladder: The urinary bladder is nondistended, limiting assessment of wall thickness. There is mild diffuse bladder wall thickening suggesting muscular hypertrophy. Reproductive: There is nonspecific mild enlargement of the prostate gland. Bones/joints: There is moderate degenerative disease in the lumbar spine. The pelvis and hips are unremarkable. No suspicious bone lesions. Soft tissues: There are small bilateral fat containing inguinal hernias. CT/CT chest abdpel w/*[id number] IMPRESSION: 1. No sign of metastases in the thorax. 2. Incidental findings above. IMPRESSION: 1. Right hemicolectomy. No sign of tumor recurrence. 2. Slightly decreased size of mildly enlarged melody hepatis lymph nodes since 01/15/2024. COMMENTS: Consistent with the [employer]'s Incidental Findings Committee white paper (J Am Mateo Radiol 2018): Any incidental renal lesion less than 1 cm or classified as too small to characterize, or any incidental cystic renal lesion characterized as simple-appearing, is likely benign. No follow-up imaging is recommended for these lesions per consensus recommendations based on imaging criteria.
[2024-07-19] MEDS: iohexol 350 mg/mL 500 mL Btl (per mL) PO (10:25)
[2024-07-19] MEDS: iohexol 350 mg/mL 500 mL Btl (per mL) IV (10:26)
== END 2024-07-19 08:15 | disposition home or self-care (01) ==
LOC: RAD 08:16
PROVIDERS: PCP Nurse Practitioner Family; Visit Provider Nurse Practitioner Family
DX: C18.2 Malignant neoplasm of ascending colon (principal); K76.89 Other specified diseases of liver; Z90.49 Acquired absence of other specified parts of digestive tract; N28.1 Cyst of kidney, acquired; I70.0 Atherosclerosis of aorta; R59.1 Generalized enlarged lymph nodes; N40.0 Benign prostatic hyperplasia without lower urinary tract symptoms; M47.816 Spondylosis without myelopathy or radiculopathy, lumbar region; K40.20 Bilateral inguinal hernia, without obstruction or gangrene, not specified as recurrent
CPT/HCPCS: 71260; 74177; Q9967

== ENCOUNTER 2024-07-19 08:38 | Oncology outpatient (recurring) (ONCR) | payer MEDICARE, MEDICAID, SELFPAY ==
[2024-07-19 09:18] LABS: Basophils # 0.1 10^3/uL (0.0-0.1); Basophils % 0.6 %; Eosinophils # 0.2 10^3/uL (0.0-0.8); Eosinophils % 1.9 %; Hematocrit 44.2 % (37-53); Lymphocytes # 2.5 10^3/uL (0.8-4.8); Lymphocytes % 27.8 %; Mean Corpuscular HGB Conc 36.2 g/dL (30-55); Mean Corpuscular Hemoglobin 31.9 pg (27-33); Mean Platelet Volume 8.8 fL (7.4-10.4); Monocytes # 0.6 10^3/uL (0.2-0.9); Monocytes % 6.9 %; Neutrophils # 5.68 10^3/uL (1.8-7.7); Neutrophils % 62.5 %; Nucleated Red Blood Cells % 0 %; Platelet Count 234 10^3/cmm (157-399); Red Blood Count 5.02 10^6/uL (3.85-5.65); White Blood Count 9.09 10^3/uL (3.29-11.43)
[2024-07-19 09:45] LABS: Carcinoembryonic Antigen 4.8 ng/mL (0.0-4.7)
[2024-07-19 09:56] LABS: Alanine Aminotransferase 54 U/L (0-41); Albumin Level 4.6 g/dL (3.5-5.2); Alkaline Phosphatase 74 U/L (40-130); Anion Gap 19.3 (5-19); Aspartate Amino Transferase 26 U/L (0-40); Blood Urea Nitrogen 25 mg/dL (8-23); Calcium 9.3 mg/dL (8.5-10.5); Carbon Dioxide 22 mmol/L (22-29); Chloride 98 mmol/L (98-107); Globulin 2.9 g/dL (1.3-4.6); Glucose 251 mg/dL (65-115); Osmolality Calculated 293 mOsm/kg (285-295); Potassium 4.3 mmol/L (3.5-5.1); Sodium 135 mmol/L (136-145); Total Bilirubin 1.2 mg/dL (0.15-1.2); Total Protein 7.5 g/dL (6.6-8.7)
== END 2024-07-31 23:59 | disposition home or self-care (01) ==
PROVIDERS: Nurse Practitioner Family; PCP Nurse Practitioner Family; Visit Provider Internal Medicine
DX: C18.2 Malignant neoplasm of ascending colon (principal); Z90.49 Acquired absence of other specified parts of digestive tract; R59.0 Localized enlarged lymph nodes
CPT/HCPCS: 36591; 71260; 74177; 80053; 82378; 85025; Q9967

== ENCOUNTER 2024-08-16 13:30 | Oncology outpatient (recurring) (ONCR) | payer MEDICARE, MEDICAID, SELFPAY | END 2024-08-30 23:59 | disposition home or self-care (01) | PROVIDERS: PCP Nurse Practitioner Family; Visit Provider Internal Medicine Medical Oncology | DX: C18.2 Malignant neoplasm of ascending colon (principal); Z45.2 Encounter for adjustment and management of vascular access device | CPT/HCPCS: 96523; 99214 ==

== ENCOUNTER 2024-09-13 13:59 | Oncology outpatient (recurring) (ONCR) | payer MEDICARE, MEDICAID, SELFPAY | END 2024-09-30 23:59 | disposition home or self-care (01) | PROVIDERS: PCP Nurse Practitioner Family; Visit Provider Internal Medicine Hematology & Oncology | DX: Z45.2 Encounter for adjustment and management of vascular access device | CPT/HCPCS: 96523 ==

== ENCOUNTER 2024-10-11 13:45 | Oncology outpatient (recurring) (ONCR) | payer MEDICARE, SELFPAY | END 2024-10-30 23:59 | disposition home or self-care (01) | LOC: ONCMED 13:46 | PROVIDERS: PCP Nurse Practitioner Family; Visit Provider Internal Medicine Hematology & Oncology | DX: Z45.2 Encounter for adjustment and management of vascular access device (principal) | CPT/HCPCS: 96523 ==

== ENCOUNTER 2024-11-10 13:04 | Oncology outpatient (recurring) (ONCR) | payer MEDICARE, SELFPAY | END 2024-11-30 23:59 | disposition home or self-care (01) | PROVIDERS: PCP Nurse Practitioner Family; Visit Provider Internal Medicine Hematology & Oncology | DX: Z45.2 Encounter for adjustment and management of vascular access device (principal) | CPT/HCPCS: 96523 ==

== ENCOUNTER → 2024-12-03 13:45 | Outpatient (BNVA) | payer MEDICARE, SELFPAY | PROVIDERS: PCP Nurse Practitioner Family; Visit Provider Emergency Medicine | DX: R73.9 Hyperglycemia, unspecified (principal) | CPT/HCPCS: 82962 ==

== ENCOUNTER 2024-12-16 11:15 | Oncology outpatient (recurring) (ONCR) | payer MEDICARE, MEDICAID, SELFPAY | END 2024-12-31 23:59 | disposition home or self-care (01) | PROVIDERS: PCP Nurse Practitioner Family; Visit Provider Internal Medicine Hematology & Oncology | DX: Z45.2 Encounter for adjustment and management of vascular access device (principal); Z95.828 Presence of other vascular implants and grafts | CPT/HCPCS: 96523 ==

== ENCOUNTER 2025-01-03 13:41 | Oncology outpatient (recurring) (ONCR) | payer MEDICARE, MEDICAID, SELFPAY ==
[2025-01-03 14:17] LABS: Basophils % 0.5 %; Eosinophils # 0.2 10^3/uL (0.0-0.8); Hematocrit 38.2 % (37-53); Lymphocytes # 2.5 10^3/uL (0.8-4.8); Lymphocytes % 31.4 %; Mean Corpuscular HGB Conc 33.8 g/dL (30-55); Mean Corpuscular Hemoglobin 29.7 pg (27-33); Mean Platelet Volume 9.1 fL (7.4-10.4); Monocytes # 0.6 10^3/uL (0.2-0.9); Neutrophils # 4.56 10^3/uL (1.8-7.7); Neutrophils % 58.5 %; Nucleated Red Blood Cells % 0 %; Platelet Count 251 10^3/cmm (157-399); Red Blood Count 4.34 10^6/uL (3.85-5.65); Red Cell Distribution Width 12.3 % (12.1-15.1); White Blood Count 7.81 10^3/uL (3.29-11.43)
[2025-01-03 14:39] LABS: Estmated Average Glucose 312; Hemoglobin A1C 12.5 % (4.0-6.0)
[2025-01-03 14:53] LABS: Alanine Aminotransferase 24 U/L (0-41); Albumin Level 3.8 g/dL (3.5-5.2); Alkaline Phosphatase 51 U/L (40-130); Aspartate Amino Transferase 17 U/L (0-40); Blood Urea Nitrogen 24 mg/dL (8-23); Carbon Dioxide 26 mmol/L (22-29); Chloride 97 mmol/L (98-107); Chol HDL Ratio 5.44 mg/dL (1.0-5.00); Cholesterol 174 mg/dL (0-200); Globulin 2.8 g/dL (1.3-4.6); Glucose 310 mg/dL (65-115); HDL Cholesterol 32 mg/dL (60-100); LDL Cholesterol Calculated 67 mg/dL (50-129); LDL HDL Ratio 2.09 RATIO (0.00-3.22); Osmolality Calculated 292 mOsm/kg (285-295); Prostate Specific Antigen Scr 1.01 ng/mL (0-4); Sodium 133 mmol/L (136-145); Thyroid Stimulating Hormone 0.99 uIU/mL (0.27-4.20); Total Bilirubin 0.6 mg/dL (0.15-1.2); Total Protein 6.6 g/dL (6.6-8.7); Triglycerides 375 mg/dL (0-150); Vitamin B12 762 pg/mL (232-1245)
== END 2025-01-28 23:59 | disposition home or self-care (01) ==
PROVIDERS: PCP Nurse Practitioner Family; Visit Provider Internal Medicine Hematology & Oncology
DX: E11.65 Type 2 diabetes mellitus with hyperglycemia (principal); Z12.5 Encounter for screening for malignant neoplasm of prostate
CPT/HCPCS: 36591; 80053; 80061; 82607; 83036; 84443; 85025; G0103

== ENCOUNTER 2025-02-03 12:37 | Oncology outpatient (recurring) (ONCR) | payer MEDICARE, SELFPAY ==
[2025-02-03 13:39] LABS: Basophils % 0.5 %; Eosinophils # 0.2 10^3/uL (0.0-0.8); Eosinophils % 2.7 %; Hematocrit 41.5 % (37-53); Lymphocytes # 2.1 10^3/uL (0.8-4.8); Lymphocytes % 25.8 %; Mean Corpuscular HGB Conc 35.2 g/dL (30-55); Mean Corpuscular Hemoglobin 31.5 pg (27-33); Mean Corpuscular Volume 89.4 fl (82-101); Mean Platelet Volume 9.5 fL (7.4-10.4); Monocytes # 0.5 10^3/uL (0.2-0.9); Monocytes % 6.5 %; Neutrophils # 5.25 10^3/uL (1.8-7.7); Nucleated Red Blood Cells % 0 %; Platelet Count 235 10^3/cmm (157-399); Red Blood Count 4.64 10^6/uL (3.85-5.65); Red Cell Distribution Width 12.7 % (12.1-15.1); White Blood Count 8.19 10^3/uL (3.29-11.43)
[2025-02-03 14:02] LABS: Carcinoembryonic Antigen 4.6 ng/mL (0.0-4.7)
[2025-02-03 14:13] LABS: Alanine Aminotransferase 20 U/L (0-41); Albumin Level 4.2 g/dL (3.5-5.2); Alkaline Phosphatase 57 U/L (40-130); Aspartate Amino Transferase 17 U/L (0-40); Blood Urea Nitrogen 32 mg/dL (8-23); Calcium 9.2 mg/dL (8.5-10.5); Carbon Dioxide 23 mmol/L (22-29); Chloride 97 mmol/L (98-107); Glucose 321 mg/dL (65-115); Osmolality Calculated 295 mOsm/kg (285-295); Sodium 133 mmol/L (136-145); Total Bilirubin 1.1 mg/dL (0.15-1.2); Total Protein 7.2 g/dL (6.6-8.7)
== END 2025-02-28 23:59 | disposition home or self-care (01) ==
PROVIDERS: Nurse Practitioner Family; PCP Nurse Practitioner Family; Visit Provider Internal Medicine Hematology & Oncology
DX: Z08 Encounter for follow-up examination after completed treatment for malignant neoplasm (principal); Z85.038 Personal history of other malignant neoplasm of large intestine; Z87.891 Personal history of nicotine dependence; Z90.49 Acquired absence of other specified parts of digestive tract; R63.4 Abnormal weight loss; Z68.26 Body mass index [BMI] 26.0-26.9, adult
CPT/HCPCS: 36591; 80053; 82378; 85025; 99214

== ENCOUNTER 2025-03-10 11:48 | Oncology outpatient (recurring) (ONCR) | payer MEDICARE, SELFPAY | END 2025-03-30 23:59 | disposition home or self-care (01) | LOC: ONCMED 11:49 | PROVIDERS: PCP Nurse Practitioner Family; Visit Provider Internal Medicine | DX: Z45.2 Encounter for adjustment and management of vascular access device (principal) | CPT/HCPCS: 96523 ==

== ENCOUNTER 2025-04-14 12:40 | Oncology outpatient (recurring) (ONCR) | payer MEDICARE, SELFPAY ==
[2025-04-14 13:12] LABS: Basophils % 0.4 %; Eosinophils # 0.3 10^3/uL (0.0-0.8); Eosinophils % 3.3 %; Lymphocytes # 1.7 10^3/uL (0.8-4.8); Lymphocytes % 21.6 %; Mean Corpuscular HGB Conc 35.2 g/dL (30-55); Mean Corpuscular Hemoglobin 30.1 pg (27-33); Mean Corpuscular Volume 85.5 fl (82-101); Mean Platelet Volume 9.3 fL (7.4-10.4); Monocytes # 0.7 10^3/uL (0.2-0.9); Monocytes % 8.8 %; Neutrophils % 65.2 %; Nucleated Red Blood Cells % 0 %; Platelet Count 243 10^3/cmm (157-399); Red Blood Count 4.91 10^6/uL (3.85-5.65); Red Cell Distribution Width 11.9 % (12.1-15.1); White Blood Count 7.65 10^3/uL (3.29-11.43)
[2025-04-14 13:36] LABS: Estmated Average Glucose 352; Hemoglobin A1C 13.9 % (4.0-6.0)
[2025-04-14 13:45] LABS: Alanine Aminotransferase 14 U/L (0-41); Albumin Level 3.9 g/dL (3.5-5.2); Alkaline Phosphatase 74 U/L (40-130); Anion Gap 17.2 (5-19); Aspartate Amino Transferase 13 U/L (0-40); Blood Urea Nitrogen 43 mg/dL (8-23); Carbon Dioxide 24 mmol/L (22-29); Chloride 90 mmol/L (98-107); Chol HDL Ratio 5.96 mg/dL (1.0-5.00); Cholesterol 167 mg/dL (0-200); Globulin 3.4 g/dL (1.3-4.6); HDL Cholesterol 28 mg/dL (60-100); LDL Cholesterol Calculated 79 mg/dL (50-129); LDL HDL Ratio 2.82 RATIO (0.00-3.22); Osmolality Calculated 300 mOsm/kg (285-295); Potassium 4.2 mmol/L (3.5-5.1); Sodium 127 mmol/L (136-145); Thyroid Stimulating Hormone 0.79 uIU/mL (0.27-4.20); Total Bilirubin 0.8 mg/dL (0.15-1.2); Total Protein 7.3 g/dL (6.6-8.7); Triglycerides 300 mg/dL (0-150)
[2025-04-14 15:37] LABS: Glucose 558 mg/dL (65-115)
== END 2025-04-30 23:59 | disposition home or self-care (01) ==
LOC: ONCMED 12:41
PROVIDERS: PCP Nurse Practitioner Family; Visit Provider Internal Medicine
DX: E11.65 Type 2 diabetes mellitus with hyperglycemia (principal)
CPT/HCPCS: 36591; 80053; 80061; 83036; 84443; 85025

== ENCOUNTER → 2025-04-21 10:08 | Outpatient (BNVA) | payer MEDICARE, SELFPAY | PROVIDERS: PCP Nurse Practitioner Family; Visit Provider Nurse Practitioner Family | DX: N18.9 Chronic kidney disease, unspecified (principal) | CPT/HCPCS: 80048 ==

== ENCOUNTER → 2025-04-27 12:22 | Outpatient (BNVA) | payer MEDICARE, SELFPAY | PROVIDERS: PCP Nurse Practitioner Family; Visit Provider Internal Medicine | DX: R06.00 Dyspnea, unspecified (principal); I10 Essential (primary) hypertension; Z87.891 Personal history of nicotine dependence | CPT/HCPCS: 99213 ==

== ENCOUNTER → 2025-05-16 09:54 | Outpatient (BNVA) | payer MEDICARE, SELFPAY | PROVIDERS: PCP Nurse Practitioner Family; Visit Provider Nurse Practitioner Family | DX: E11.65 Type 2 diabetes mellitus with hyperglycemia (principal); I10 Essential (primary) hypertension | CPT/HCPCS: 80048 ==

== ENCOUNTER 2025-05-19 13:20 | Oncology outpatient (recurring) (ONCR) | payer MEDICARE, SELFPAY | END 2025-05-30 23:59 | disposition home or self-care (01) | LOC: ONCMED 13:21 | PROVIDERS: PCP Nurse Practitioner Family; Visit Provider Internal Medicine | DX: Z45.2 Encounter for adjustment and management of vascular access device (principal); Z95.828 Presence of other vascular implants and grafts | CPT/HCPCS: 96523 ==

== ENCOUNTER 2025-06-23 12:21 | Oncology outpatient (recurring) (ONCR) | payer MEDICARE, SELFPAY | END 2025-06-30 23:59 | disposition home or self-care (01) | LOC: ONCMED 12:21 | PROVIDERS: PCP Nurse Practitioner Family; Visit Provider Internal Medicine | DX: Z45.2 Encounter for adjustment and management of vascular access device (principal); Z95.828 Presence of other vascular implants and grafts | CPT/HCPCS: 96523 ==

== ENCOUNTER 2025-07-28 12:53 | Oncology outpatient (recurring) (ONCR) | payer MEDICARE, SELFPAY | END 2025-07-31 23:59 | disposition home or self-care (01) | PROVIDERS: PCP Nurse Practitioner Family; Visit Provider Internal Medicine | DX: Z45.2 Encounter for adjustment and management of vascular access device (principal); Z95.828 Presence of other vascular implants and grafts | CPT/HCPCS: 96523 ==

== ENCOUNTER 2025-08-10 11:42 | Oncology outpatient (recurring) (ONCR) | payer MEDICARE, SELFPAY ==
[2025-08-10 11:59] LABS: Hematocrit 42.3 % (37-53); Hemoglobin 15.00 g/dL (11.27-16.99); Mean Corpuscular HGB Conc 35.5 g/dL (30-55); Mean Corpuscular Hemoglobin 29.9 pg (27-33); Mean Corpuscular Volume 84.3 fl (82-101); Nucleated Red Blood Cells % 0 %; Platelet Count 254 10^3/cmm (157-399); Red Blood Count 5.02 10^6/uL (3.85-5.65); White Blood Count 8.69 10^3/uL (3.29-11.43)
[2025-08-10 12:28] LABS: Carcinoembryonic Antigen 4.2 ng/mL (0.0-4.7)
[2025-08-10 12:39] LABS: Alanine Aminotransferase 18 U/L (0-41); Albumin Level 4.1 g/dL (3.5-5.2); Alkaline Phosphatase 64 U/L (40-130); Anion Gap 16.6 (5-19); Aspartate Amino Transferase 14 U/L (0-40); Blood Urea Nitrogen 30 mg/dL (8-23); Calcium 8.8 mg/dL (8.5-10.5); Carbon Dioxide 23 mmol/L (22-29); Chloride 97 mmol/L (98-107); Creatinine Clr Calc Pharmacy 40.2414; Globulin 3.0 g/dL (1.3-4.6); Glucose 368 mg/dL (65-115); Osmolality Calculated 295 mOsm/kg (285-295); Potassium 4.6 mmol/L (3.5-5.1); Sodium 132 mmol/L (136-145); Total Protein 7.1 g/dL (6.6-8.7)
== END 2025-08-30 23:59 | disposition home or self-care (01) ==
PROVIDERS: Nurse Practitioner Family; PCP Nurse Practitioner Family; Visit Provider Internal Medicine
DX: Z08 Encounter for follow-up examination after completed treatment for malignant neoplasm (principal); Z85.038 Personal history of other malignant neoplasm of large intestine; Z87.891 Personal history of nicotine dependence; Z90.49 Acquired absence of other specified parts of digestive tract; Z95.828 Presence of other vascular implants and grafts; Z92.21 Personal history of antineoplastic chemotherapy
CPT/HCPCS: 36591; 80053; 82378; 85025; 99213

== ENCOUNTER 2025-09-15 12:35 | Oncology outpatient (recurring) (ONCR) | payer MEDICARE, MEDICAID, SELFPAY ==
[2025-09-15 12:58] LABS: Hematocrit 40.2 % (37-53); Hemoglobin 14.10 g/dL (11.27-16.99); Mean Corpuscular HGB Conc 35.1 g/dL (30-55); Mean Corpuscular Hemoglobin 30.7 pg (27-33); Mean Corpuscular Volume 87.6 fl (82-101); Nucleated Red Blood Cells % 0 %; Platelet Count 223 10^3/cmm (157-399); Red Blood Count 4.59 10^6/uL (3.85-5.65); White Blood Count 7.75 10^3/uL (3.29-11.43)
[2025-09-15 13:23] LABS: Carcinoembryonic Antigen 4.7 ng/mL (0.0-4.7)
[2025-09-15 13:34] LABS: Alanine Aminotransferase 25 U/L (0-41); Albumin Level 4.2 g/dL (3.5-5.2); Alkaline Phosphatase 69 U/L (40-130); Anion Gap 18.8 (5-19); Aspartate Amino Transferase 18 U/L (0-40); Blood Urea Nitrogen 28 mg/dL (8-23); Calcium 9.1 mg/dL (8.5-10.5); Carbon Dioxide 23 mmol/L (22-29); Chloride 97 mmol/L (98-107); Creatinine Clr Calc Pharmacy 53.0782; Globulin 2.7 g/dL (1.3-4.6); Glucose 368 mg/dL (65-115); Osmolality Calculated 298 mOsm/kg (285-295); Potassium 4.8 mmol/L (3.5-5.1); Sodium 134 mmol/L (136-145); Total Protein 6.9 g/dL (6.6-8.7)
== END 2025-09-30 23:59 | disposition home or self-care (01) ==
PROVIDERS: PCP Nurse Practitioner Family; Visit Provider Internal Medicine
DX: Z08 Encounter for follow-up examination after completed treatment for malignant neoplasm (principal); Z85.038 Personal history of other malignant neoplasm of large intestine; Z87.891 Personal history of nicotine dependence; Z95.828 Presence of other vascular implants and grafts; Z92.21 Personal history of antineoplastic chemotherapy
CPT/HCPCS: 36591; 80053; 82378; 85025; 99213

== ENCOUNTER 2025-10-12 11:31 | Oncology outpatient (recurring) (ONCR) | payer MEDICARE, MEDICAID, SELFPAY ==
[2025-10-12] MEDS: iohexol 350 mg/mL 500 mL Btl (per mL) PO (12:38)
--- NOTE | 2025-10-12 12:45 | CTR_ITS ---
PROCEDURE INFORMATION: Exam: CT Chest Without Contrast; Diagnostic Exam date and time: 10/12/2025 12:43 PM Age: 80 years old Clinical indication: Condition or disease; Other: Colon cancer; Prior surgery; Surgery date: 6+ months; Surgery type: Hernia, colon; Additional info: Surveillance, patient refused iv contrast but is willing to take oral TECHNIQUE: Imaging protocol: Diagnostic computed tomography of the chest without contrast. Radiation optimization: All CT scans at this facility use at least one of these dose optimization techniques: automated exposure control; mA and/or kV adjustment per patient size (includes targeted exams where dose is matched to clinical indication); or iterative reconstruction. COMPARISON: CT chest abdpel w/*[id number] 07/19/2024 10:04 AM RADIATION DOSE METRICS: Total DLP (mGy-cm): 1050.07 FINDINGS: Lungs: Unremarkable. No consolidation. No masses. Pleural spaces: Unremarkable. No pneumothorax. No pleural effusion. Heart: Unremarkable. No cardiomegaly. No pericardial effusion. Coronary arteries: Coronary artery calcifications. Lymph nodes: Unremarkable. No enlarged lymph nodes. Vasculature: Unremarkable. No aortic aneurysm. Bones/joints: Unremarkable. No acute fracture. Soft tissues: Unremarkable. Other findings: Calcified granuloma on the right. PROCEDURE INFORMATION: Exam: CT Abdomen And Pelvis Without Contrast Exam date and time: 10/12/2025 12:43 PM Age: 80 years old Clinical indication: Condition or disease; Other: Colon cancer; Prior surgery; Surgery date: 6+ months; Surgery type: Hernia, colon; Additional info: Surveillance, patient refused iv contrast but is willing to take oral TECHNIQUE: Imaging protocol: Computed tomography of the abdomen and pelvis without contrast. Radiation optimization: All CT scans at this facility use at least one of these dose optimization techniques: automated exposure control; mA and/or kV adjustment per patient size (includes targeted exams where dose is matched to clinical indication); or iterative reconstruction. COMPARISON: CT abdomen pelvis w con* [id number] 02/01/2022 9:05 AM RADIATION DOSE METRICS: Total DLP (mGy-cm): 1050.07 FINDINGS: Liver: Calcified granuloma in the liver. Gallbladder and biliary ducts: Cholecystectomy. Pancreas: Normal. No ductal dilation. Spleen: Calcified granuloma in the spleen. Adrenal glands: Normal. No mass. Kidneys and ureters: Normal. No hydronephrosis. Stomach and bowel: Post right hemicolectomy. Appendix: No evidence of appendicitis. Intraperitoneal space: Unremarkable. No free air. No significant fluid collection. Vasculature: Unremarkable. No abdominal aortic aneurysm. Lymph nodes: Unremarkable. No enlarged lymph nodes. Urinary bladder: Mild thickening of the wall of the urinary bladder. Reproductive: Unremarkable as visualized. Bones/joints: Unremarkable. No acute fracture. Soft tissues: Bilateral inguinal hernias containing only fat. CT/[place] [id number] IMPRESSION: No acute findings. IMPRESSION: 1. No change and no evidence of metastatic disease. 2. Mild thickening of the wall of the nearly empty urinary bladder.
== END 2025-10-30 23:59 | disposition home or self-care (01) ==
LOC: RAD 11:32 → ONCMED 10-13 09:09
PROVIDERS: PCP Nurse Practitioner Family; Visit Provider Internal Medicine
DX: Z45.2 Encounter for adjustment and management of vascular access device (principal); Z95.828 Presence of other vascular implants and grafts; C18.2 Malignant neoplasm of ascending colon; N32.89 Other specified disorders of bladder; I25.10 Atherosclerotic heart disease of native coronary artery without angina pectoris; R93.89 Abnormal findings on diagnostic imaging of other specified body structures; K75.3 Granulomatous hepatitis, not elsewhere classified; Z90.49 Acquired absence of other specified parts of digestive tract; D73.89 Other diseases of spleen; Z98.890 Other specified postprocedural states; K40.20 Bilateral inguinal hernia, without obstruction or gangrene, not specified as recurrent
CPT/HCPCS: 71250; 74176; 96523

== ENCOUNTER 2025-11-23 09:58 | Oncology outpatient (recurring) (ONCR) | payer MEDICARE, MEDICAID, SELFPAY ==
[2025-11-23 10:35] LABS: Hematocrit 42.9 % (37-53); Hemoglobin 15.60 g/dL (11.27-16.99); Mean Corpuscular HGB Conc 36.4 g/dL (30-55); Mean Corpuscular Hemoglobin 32.1 pg (27-33); Mean Corpuscular Volume 88.3 fl (82-101); Nucleated Red Blood Cells % 0 %; Platelet Count 210 10^3/cmm (157-399); Red Blood Count 4.86 10^6/uL (3.85-5.65); White Blood Count 9.49 10^3/uL (3.29-11.43)
[2025-11-23 10:46] LABS: Estmated Average Glucose 249; Hemoglobin A1C 10.3 % (4.0-6.0)
[2025-11-23 11:00] LABS: Alanine Aminotransferase 25 U/L (0-41); Albumin Level 4.3 g/dL (3.5-5.2); Alkaline Phosphatase 68 U/L (40-130); Anion Gap 16.2 (5-19); Aspartate Amino Transferase 18 U/L (0-40); Blood Urea Nitrogen 35 mg/dL (8-23); Calcium 8.9 mg/dL (8.5-10.5); Carbon Dioxide 24 mmol/L (22-29); Chloride 97 mmol/L (98-107); Cholesterol 163 mg/dL (0-200); Globulin 2.8 g/dL (1.3-4.6); Glucose 349 mg/dL (65-115); HDL Cholesterol 31 mg/dL (60-100); Osmolality Calculated 298 mOsm/kg (285-295); Potassium 4.2 mmol/L (3.5-5.1); Sodium 133 mmol/L (136-145); Thyroid Stimulating Hormone 1.02 uIU/mL (0.27-4.20); Total Protein 7.1 g/dL (6.6-8.7); Triglycerides 363 mg/dL (0-150)
== END 2025-11-30 23:59 | disposition home or self-care (01) ==
LOC: ONCMED 09:58
PROVIDERS: PCP Nurse Practitioner Family; Visit Provider Internal Medicine
DX: E11.65 Type 2 diabetes mellitus with hyperglycemia (principal); Z45.2 Encounter for adjustment and management of vascular access device; Z95.828 Presence of other vascular implants and grafts; Z12.5 Encounter for screening for malignant neoplasm of prostate
CPT/HCPCS: 36591; 80053; 80061; 83036; 84443; 85025; 96523; G0103